=== PATIENT | female | born 1940 | race Caucasian/White ===

== ENCOUNTER → 2016-12-11 | Outpatient (CLI) | payer OTHER | LOC: FIMAGING 10:01 | PROVIDERS: ATTEND Neurological Surgery | DX: Z09 Encounter for follow-up examination after completed treatment for conditions other than malignant neoplasm (principal); Z98.1 Arthrodesis status ==

== ENCOUNTER 2017-03-18 05:28 | Inpatient (IN) | payer OTHER ==
[2017-03-18] MEDS ORDERED: DEXAMETHASONE 10 MG/ML VIAL IVP ONE (06:00)
[2017-03-18] MEDS ORDERED: CHLORHEXIDINE GLUC HIBICLENS 118 ML BTL TP ONE (06:00)
[2017-03-18] MEDS ORDERED: LIDOCAINE 1% 5 ML SDV ID PRN (06:07)
[2017-03-18] MEDS ORDERED: LR 1,000 ML IV ONE (06:07)
[2017-03-18] MEDS ORDERED: THROMBIN (BOVINE) 5,000 UNIT VIAL TP ONE (06:34)
[2017-03-18] MEDS ORDERED: BACITRACIN 50,000 UNITS/10 ML SYR IRR ONE ×2 (06:34→08:58)
[2017-03-18] MEDS ORDERED: CITRATE DEXTROSE SOLN 500 ML BAG ONE ×3 (06:34→14:06)
[2017-03-18] MEDS ORDERED: BUPIVACAINE/EPI 0.25% 30 ML SDV ONE (06:34)
[2017-03-18] MEDS ORDERED: BUPIVACAINE 0.25% 30 ML SDV ONE (06:34)
--- NOTE | 2017-03-18 06:39 | PDGENHP ---
History & Physical Outpatient Chief Complaint: Progressive upper thoracic kyphosis, pain History of Present Illness: has a history of a C3/4,4/5 and C6/7 ACDF and posterior C3-7 laminectomy and C3-T3 fusion in 2011. She fell in February of 2014 with some concern of a C1 ring fracture. An MRI and CT showed this to be a chronic fracture. She continues to have ongoing severe paraspinal pain wiht head heaviness without arm pain, weakness or bowel/bladder problems. She has upper thoracic kyphosis seen on her Scoliosis xrays from [facility] on 12/11/16 that shows her being forward in relation to her pelvis. Pertinent Past, Social, Family History: does not smoke. No alchohol use Relevant Physical Exam: progressive upper thoracic kyphosis with paraspinal neck pain. no weakness or tingling Cardiorespiratory Assessment: Lungs WNL. Heart RRR
[2017-03-18] MEDS ORDERED: THROMBIN (BOVINE) 20,000 UNIT VIAL TP ONE ×5 (06:46→13:23)
[2017-03-18] MEDS ORDERED: MIDAZOLAM 2 MG/2 ML VIAL IVP ONE ×2 (06:53→07:07)
--- NOTE | 2017-03-18 06:56 | PDANEPAE ---
ANE Past Medical History - Cardiovascular History Hx Hypertension: No Hx Arrhythmias: No Hx Chest Pain: No Hx Coronary Artery / Peripheral Vascular Disease: No Hx CHF / Valvular Disease: No Hx Palpitations: No - Pulmonary History Hx COPD: No Hx Asthma/Reactive Airway Disease: No Hx Recent Upper Respiratory Infection: No Hx Oxygen in Use at Home: No - Neurologic History Hx Cerebrovascular Accident: No Hx Seizures: No Hx Dementia: No - Endocrine History Hx Diabetes: No Hypothyroid: Yes - Renal History Hx Renal Disorders: No - Liver History Hx Hepatic Disorders: No - Neurological & Psychiatric Hx Hx Neurological and Psychiatric Disorders: Yes - Cancer History Hx Cancer: Yes - Congenital Disorder History Hx Congenital Disorders: Yes - GI History Hx Gastrointestinal Disorders: Yes - Chronic Pain History Chronic Pain: Yes (back and neck) ANE Review of Systems - Exercise capacity Exercise capacity: >=4 METS METS (RN): 4 METS ANE Patient History - Allergies Allergies/Adverse Reactions: aspirin [From Fiorinal] Allergy (Severe, Verified 02/18/17 14:04) WHOLE BODY SWELLED UP butalbital [From Fiorinal] Allergy (Severe, Verified 02/18/17 14:04) WHOLE BODY SWELLED UP erythromycin base [Erythromycin Base] Allergy (Severe, Verified 02/18/17 14:04) THROAT CLOSED UP Penicillins Allergy (Intermediate, Verified 02/18/17 14:04) Hives levofloxacin Allergy (Verified 02/18/17 14:03) Swelling/neck,face,throat - Home Medications Home Medications: Cholecalciferol Vit D3 [Vitamin D3 2000 units (OTC)] 2,000 units PO DAILY [Last Taken 03/08/17] DULoxetine [Cymbalta 30 MG (RX)] 60 mg PO DAILY 09/16/12 [Last Taken 03/17/17] Levothyroxine [Synthroid 50 mcg (RX)] 50 mcg PO DAILY06 09/16/12 [Last Taken 09/21] Ascorbic Acid [Vitamin C 500 mg (*)] 500 mg PO DAILY 02/14/17 [Last Taken ] Gabapentin [Neurontin 300 MG (*)] 600 mg PO HS 02/14/17 [Last Taken 03/17/17] Herbals/Supplements -Info Only 1 ea PO DAILY 02/14/17 [Last Taken 03/08/17] Zolpidem Tartrate [Ambien 5MG (*)] 7.5 mg PO HS 02/14/17 [Last Taken 03/17/17] - NPO status NPO Since - Liquids (Date): 03/17/17 NPO Since - Solids (Date): 03/17/17 - Smoking Hx Smoking Status: Former smoker - Family Anes Hx Family Hx Anesthesia Complications: NONE ANE Labs/Vital Signs - Vital Signs Blood Pressure: 143/77 Heart Rate: 68 Respiratory Rate: 16 Height: 149.86 cm Weight: 48.988 kg ANE Physical Exam - Airway Mallampati Score: Class 3 Mouth exam: dentures - Pulmonary Pulmonary: no respiratory distress - Cardiovascular Cardiovascular: regular rate and rhythym - ASA Status ASA Status: II ANE Anesthesia Plan Anesthesia Plan: general endotracheal anesthesia Lines/Monitors: arterial line
[2017-03-18] MEDS ORDERED: ceFAZolin 2 GM/DEXTROSE 100 ML IV ONE (07:00)
[2017-03-18] MEDS ORDERED: MIDAZOLAM 2 MG/2 ML VIAL ONE (07:08)
[2017-03-18] MEDS ORDERED: fentaNYL 100 MCG/2 ML INJ ONE ×2 (07:09→16:57)
[2017-03-18] MEDS ORDERED: ROCURONIUM 50 MG/5 ML VIAL ONE (07:09)
[2017-03-18] MEDS ORDERED: LIDOCAINE 2% 100 MG/5 ML SYR ONE (07:09)
[2017-03-18] MEDS ORDERED: HYDROmorphONE/DILAUDID 2 MG/ML INJ ONE (07:09)
[2017-03-18] MEDS ORDERED: ONDANSETRON 4 MG/2 ML VIAL ONE (07:09)
[2017-03-18] MEDS ORDERED: DEXAMETHASONE 4 MG/ML VIAL ONE (07:09)
[2017-03-18] MEDS ORDERED: PROPOFOL 200 MG/20 ML VIAL ONE (07:10)
[2017-03-18] MEDS ORDERED: REMIFENTANIL HCL 1 MG VIAL ONE ×2 (07:10→13:14)
[2017-03-18] MEDS ORDERED: PROPOFOL/EMULSION 500 MG/50 ML BOTTLE IV ONE ×2 (07:10→13:14)
[2017-03-18] MEDS ORDERED: SUCCINYLCHOLINE CHLORIDE*ANESTHESIA ONLY*200 MG/10 ML SYR IVP ONE (07:14)
[2017-03-18] MEDS ORDERED: PHENYLEPHRINE HCL 100 MCG/ML SYR ONE ×2 (07:32→12:22)
--- NOTE | 2017-03-18 08:50 | POSTANESTH ---
Post Anesthetic Evaluation Cardiovascular Status: Normal, Stable, Similar to Pre-Op Cond Respiratory Status: Normal, Stable, Similar to Pre-op Cond. Level of Consciousness/Mental Status: Can Participate in Eval, Moderately Sleepy Pain Control: Adequate, Prn Tx Ordered Nausea/Vomiting Control: Adequate, Prn Tx Ordered Complications Possibly Related to Anesthesia: None Noted (doing well)
[2017-03-18] MEDS ORDERED: epHEDrine SULFATE 10 MG/ML SYR ONE (11:05)
[2017-03-18] MEDS ORDERED: ceFAZolin 1 GM VIAL ONE ×2 (11:46)
[2017-03-18] MEDS ORDERED: TRANEXAMIC ACID 1,000 MG in NS 100 ML IV ONE (12:00)
[2017-03-18 12:11] LABS: % IMMATURE GRANULYOCYTES 1.3 % (0.0-1.1); ABSOLUTE IMMATURE GRANULOCYTES 0.09 10^3/uL (0.00-0.10); ADD DIFF? NO; ADD MORPH? NO; ADD SCAN? NO; ATYPICAL LYMPHOCYTE FLAG 0 (0-99); FRAGMENT RBC FLAG 0 (0-99); HEMATOCRIT 28.1 % (38.0-47.0); HEMOGLOBIN 9.2 g/dL (12.6-16.3); LEFT SHIFT FLG 10 (0-99); LIPEMIA HEMOLYSIS FLAG 80 (0-99); MEAN CELL HEMOGLOBIN 28.7 pg (27.9-34.1); MEAN CELL HEMOGLOBIN CONCENTR. 32.7 g/dL (32.4-36.7); MEAN CELL VOLUME 87.5 fL (81.5-99.8); MEAN PLATELET VOLUME 10.2 fL (8.7-11.7); PLATELET CLUMPS FLAG 0 (0-99); PLATELET COUNT 153 10^3/uL (150-400); RED BLOOD CELL COUNT 3.21 10^6/uL (4.18-5.33); RED CELL DISTRIBUTION WIDTH 14.2 % (11.5-15.2)
[2017-03-18 12:26] LABS: INR 1.13 (0.83-1.16); PROTIME(PATIENT) 14.4 SEC (12.0-15.0)
[2017-03-18 12:27] LABS: APTT 31.6 SEC (23.0-38.0)
[2017-03-18] MEDS ORDERED: DEXMEDETOMIDINE HCL 400 MCG in NS 100 ML IV ONE (16:00)
[2017-03-18] MEDS ORDERED: DEXMEDETOMIDINE HCL 400 MCG in NS 100 ML IV SCH ×2 (16:00→17:30)
--- NOTE | 2017-03-18 16:44 | POSTOPPROG ---
Post Op Note Date of Operation: 03/18/17 Surgeon: Umang Solorzano Waste Machine Tender: Arnulfo Anesthesiologist: Joseph Anesthesia: GET(General Endotracheal) Pre-op Diagnosis: progressive upper thoracic kyphosis and neck pain Post-op Diagnosis: same Indication: poor posture, pain Procedure: posterior cervical hardware removal, Upper thoracic hdwr removal, T3 wedge Findings: kyphosis Inf/Abcess present in the surg proc area at time of surgery?: No EBL: 2250 Total fluids administered: 5100 crystalloid, 2 units PRBC, 2 FFP, 4pak platelets , 750 cell saver Complications: none Drains: Damion Monterroso (to bulb suction)
[2017-03-18] MEDS ORDERED: NALOXONE HCL 0.4 MG/ML INJ IVP PRN ×2 (16:47→17:13)
[2017-03-18] MEDS ORDERED: HYDROmorphONE/DILAUDID 1 MG/ML SYR IVP PRN (16:47)
[2017-03-18] MEDS ORDERED: PROMETHAZINE HCL 25 MG/ML INJ IVP PRN (16:47)
[2017-03-18] MEDS ORDERED: fentaNYL 100 MCG/2 ML INJ IVP PRN (16:47)
[2017-03-18] MEDS ORDERED: ALBUTEROL 3 ML DEYVIAL IH PRN (16:47)
[2017-03-18] MEDS ORDERED: ONDANSETRON 4 MG/2 ML VIAL IVP PRN (16:47)
[2017-03-18] MEDS ORDERED: DEXAMETHASONE 4 MG/ML VIAL IVP PRN (16:47)
[2017-03-18] MEDS ORDERED: HYDROCODONE/APAP 5/325 TAB PO PRN (16:47)
[2017-03-18] MEDS ORDERED: OXYCODONE/APAP 5/325 TAB PO PRN (16:47)
[2017-03-18] MEDS ORDERED: ACETAMINOPHEN 500 MG TAB PO PRN (16:47)
[2017-03-18] MEDS ORDERED: MEPERIDINE 25 MG/ML SYR IVP PRN (16:47)
[2017-03-18] MEDS ORDERED: ONDANSETRON DISINTEGRATING 4 MG TAB PO PRN (16:48)
[2017-03-18] MEDS ORDERED: diphenhydrAMINE 25 MG CAP PO PRN (16:48)
[2017-03-18] MEDS ORDERED: MAGNESIUM HYDROXIDE 30 ML UDCUP PO PRN (16:48)
[2017-03-18] MEDS ORDERED: BISACODYL 10 MG SUPP PR PRN (16:48)
[2017-03-18] MEDS ORDERED: LACTULOSE 20 GM/30 ML UDCUP PO PRN (16:48)
--- NOTE | 2017-03-18 16:48 | SOAPPROG ---
SOAP Progress Note Assessment/Plan: Assessment: post op check: doing well s/p C3-T7 instrumentation and T3 wedge with removal of posterior cervical and upper thoracic hardware Plan: transfer to ICU per protocol MARK to suction HOB as tolerated 03/18/17 16:44 Subjective: eyes closed, wakes to tactile stimulation and groans Moving all extremities Objective: Vital Signs Temp Pulse Resp BP Pulse Ox 36.8 C 68 16 143/77 H 03/18/17 06:29 03/18/17 06:55 03/18/17 06:55 03/18/17 06:55 Laboratory Results 03/18/17 12:02 PT 14.4 SEC (12.0-15.0) 03/18/17 12:02 INR 1.13 (0.83-1.16) 03/18/17 12:02 BP 153/79 HR: 76 02: 100% resp rate: 14 Neuro: MORRELL, sens +LT, +FC, + Shoulder shrug, pushes down with both feet pulls legs away to thigh pinch bilaterall sensation intact in chest/abdomen perrla ICD10 Worksheet Patient Problems: Problems Problem Status Onset Anemia due to blood loss, acute Acute Chronic pain Acute Pneumonia Acute S/P lumbar spinal fusion Acute
[2017-03-18 17:26] LABS: % IMMATURE GRANULYOCYTES 0.8 % (0.0-1.1); ABSOLUTE IMMATURE GRANULOCYTES 0.11 10^3/uL (0.00-0.10); ADD DIFF? NO; ADD MORPH? NO; ADD SCAN? NO; ATYPICAL LYMPHOCYTE FLAG 0 (0-99); FRAGMENT RBC FLAG 10 (0-99); HEMATOCRIT 32.4 % (38.0-47.0); HEMOGLOBIN 10.8 g/dL (12.6-16.3); LEFT SHIFT FLG 10 (0-99); LIPEMIA HEMOLYSIS FLAG 80 (0-99); MEAN CELL HEMOGLOBIN 28.6 pg (27.9-34.1); MEAN CELL HEMOGLOBIN CONCENTR. 33.3 g/dL (32.4-36.7); MEAN CELL VOLUME 85.7 fL (81.5-99.8); PLATELET CLUMPS FLAG 10 (0-99); PLATELET COUNT 168 10^3/uL (150-400); RED BLOOD CELL COUNT 3.78 10^6/uL (4.18-5.33)
[2017-03-18 17:45] LABS: ANION GAP 7 mEq/L (8-16); CARBON DIOXIDE 21 mEq/l (22-31); CHLORIDE 105 mEq/L (97-110); POTASSIUM 4.3 mEq/L (3.5-5.2); SODIUM 133 mEq/L (134-144)
[2017-03-18 17:46] LABS: CALCIUM 7.7 mg/dL (8.5-10.4); CREATININE 0.6 mg/dL (0.6-1.0); GLOMERULAR FILTRATION RATE > 60; GLUCOSE 203 mg/dL (70-100)
[2017-03-18] MEDS ORDERED: NS BOLUS 500 ML (Wide open) IV ONE (19:00)
[2017-03-18] MEDS: ceFAZolin 2 GM/DEXTROSE 100 ML IV SCH (20:41)
[2017-03-18] MEDS: FAMOTIDINE 20 MG TAB PO SCH (20:41)
[2017-03-18] MEDS: morphINE PCA 30 MG/30 ML PCA IV PRN (21:50)
[2017-03-18] MEDS: oxyCODONE IR 5 MG TAB PO PRN (21:50)
[2017-03-18] MEDS: morphINE SR 15 MG TAB PO SCH (21:50)
[2017-03-18] MEDS: METHOCARBAMOL 750 MG TAB PO PRN (21:50)
[2017-03-18] MEDS: GABAPENTIN 300 MG CAP PO SCH (22:37)
[2017-03-18] MEDS: SENNOSIDES/DOCUSATE SODIUM TAB PO SCH (22:37)
[2017-03-18] MEDS: ACETAMINOPHEN 500 MG TAB PO SCH (22:38)
[2017-03-18] MEDS: POLYETHYLENE GLYCOL 3350 17 GM PKT PO SCH (22:38)
[2017-03-18 23:30] LABS: HEMATOCRIT 29.2 % (38.0-47.0); HEMOGLOBIN 9.6 g/dL (12.6-16.3)
[2017-03-19] MEDS ORDERED: DIAZEPAM 10 MG/2 ML SYR ONE (00:07)
[2017-03-19] MEDS: DIAZEPAM 10 MG/2 ML SYR IVP PRN ×2 (00:10→17:10)
--- NOTE | 2017-03-19 00:54 | GOP ---
[f rep st] OPERATIVE REPORT ADDENDUM TO PREVIOUSLY DICTATED REPORT Please note that the patient has L&K pedicle screws in the thoracic spine with a 6 mm kelsi below T7, and she has K2M [place] pedicle screws with a 5.5 mm kelsi at T4 through T7, K2M Mini [place] lateral mass screws, and pedicle screws at C3 through T2 with what I believe is a 3 mm kelsi. /[id number] [facility] ORIGINAL REPORT DATE OF OPERATION: 03/18/2017 SURGEON: Umang Solorzano MD NEUROSURGEON: Umang Solorzano MD HEAD SCREEN WORKER: BENITA Anton ANESTHESIA: General endotracheal. 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 POSTOPERATIVE DIAGNOSIS: Severe progressive cervical thoracic kyphosis with intractable pain and dysfunction, failed conservative care. PROCEDURE PERFORMED: 1. T3 pedicle subtraction osteotomy with extensive T2, T3 and T4 laminectomies for decompression of the spinal canal. 2. Removal and replacement of instrumentation from C3 through C7 with extension of posterior segmental (lateral mass screw and pedicle screw) fixation and posterolateral fusion from C3 through T7. 3. Use of intraoperative microscopy, fluoroscopy, and computer volumetric stereotactic navigation with intraoperative neurophysiologic testing. FINDINGS: ESTIMATED BLOOD LOSS: 1000 cc. INDICATIONS: The patient is a 76-year-old woman with intractable pain and dysfunction related to progressive kyphosis of her cervical thoracic spine. She has been treated extensively with nonsurgical management and presents now for reconstruction. She has an extensive past surgical history involving her cervical and thoracic spine, and the prior fusion at C3 through C7 and T7 down to the lumbar spine will be connected and tied together. The patient understands that this is a very high-risk surgery with no guarantee of improvement and she could be worse. DESCRIPTION OF PROCEDURE: After informed consent was obtained, the patient was taken to the operating room and placed in the prone position with the head in the radiolucent Armando head men's tennis coach on the Damion table. The craniocervical thoracic areas were prepped and draped in a sterile fashion and, after fluoroscopic localization of the correct levels, a midline linear incision was created from approximately C3 down to T7. Note, that due to the patient's severe kyphosis it was very difficult to perform the positioning and the exposure and we were working in somewhat of a hole with severe angulation of her spine with the entire exposure. This in combination with the prior surgery and history of multilevel laminectomy, made the exposure extremely time- consuming and difficult, but we were able to carefully expose all the prior instrumentation and the laminectomy defects and everything from C3 down to T7. The prior rods and several screws were removed in the cervical spine, and the rods were cut and screws removed in the thoracic spine in order to be able to place a kelsi-to-kelsi connector. Following this, the O-arm neuronavigational system was brought in and 3-D reconstructed images obtained. Using computer volumetric stereotactic navigation, screws were placed from C3 through T7 individually at each level in the standard fashion with lateral mass and pedicle screws. Some of the screws were left in place from the prior surgery. The O-arm neuronavigational system was utilized to verify good position of the screws. The T6 and T5 screws on the right were somewhat lateral, and these were both removed and a new trajectory placed at T6, but there was no better trajectory at T5, so the screw was replaced in the old position which was not ideal but also was not that bad and I felt that it was in the best interest of the patient to leave it in place. Following this, extensive laminectomy defects were created at T2, T3 and T4 in anticipation of the realignment of her cervical spine. The facet joints were also taken and the nerve roots more completely decompressed and unroofed all the way out laterally. The T3 pedicles were then drilled down using the Shopperception drill system with coarse silvana burs. The posterior element of the vertebral body was then pulled down into the defect using reverse angle curettes. This was all performed in a wedge-shaped fashion, and once the entire spinal cord and thecal sac were completely clear of bone and tissue, the [place] head men's tennis coach was disconnected and the patient's cervical spine was realigned into a less kyphotic position. Multiple x-rays were taken including 3D reconstructed images to try and identify the ideal position for her head and neck, which can be extremely difficult and frequently not possible. We did the best we could and then locked the Armando back in place and contoured the rods to match the screws and secured this from a rostral to caudal approach. The rods from C3 to T7 were connected to the old thoracolumbar rods with kelsi-to-kelsi connectors. All of the areas were copiously irrigated with antibiotic irrigation. Meticulous hemostasis was achieved as best we could. The remaining lamina and facet joints and transverse processes were then extensively decorticated from C3 down to T7 and the local autograft from the osteotomy and other laminectomies along with bone morphogenic protein was placed out laterally from C3 through T7 and in the T3 osteotomy defect. Following re-verification of good position of the screws and rods using biplanar fluoroscopy, a drain was placed and the wound was closed in a layered fashion using interrupted Vicryl sutures followed by Steri-Strips on the skin. Note, that the patient did have a significant skin fold at her cervical thoracic junction area due to the realignment and this was approximated painstakingly to the best of my ability and then bacitracin goop was placed in the crevice where skin was overlap in order to minimize the risk of infection. COMPLICATIONS: None. DISPOSITION: The patient was extubated and transferred to the recovery room in stable condition. /[id number]/MODL MTDD
[2017-03-19] MEDS: ceFAZolin 2 GM/DEXTROSE 100 ML IV SCH (04:55)
[2017-03-19 06:01] LABS: % IMMATURE GRANULYOCYTES 0.5 % (0.0-1.1); ABSOLUTE IMMATURE GRANULOCYTES 0.04 10^3/uL (0.00-0.10); ADD DIFF? NO; ADD MORPH? NO; ADD SCAN? NO; ATYPICAL LYMPHOCYTE FLAG 0 (0-99); FRAGMENT RBC FLAG 80 (0-99); HEMOGLOBIN 8.6 g/dL (12.6-16.3); LEFT SHIFT FLG 0 (0-99); LIPEMIA HEMOLYSIS FLAG 80 (0-99); MEAN CELL HEMOGLOBIN 28.2 pg (27.9-34.1); MEAN CELL HEMOGLOBIN CONCENTR. 33.1 g/dL (32.4-36.7); MEAN CELL VOLUME 85.2 fL (81.5-99.8); MEAN PLATELET VOLUME 9.9 fL (8.7-11.7); PLATELET CLUMPS FLAG 40 (0-99); PLATELET COUNT 114 10^3/uL (150-400); RED BLOOD CELL COUNT 3.05 10^6/uL (4.18-5.33); RED CELL DISTRIBUTION WIDTH 15.7 % (11.5-15.2)
[2017-03-19] MEDS: ACETAMINOPHEN 500 MG TAB PO SCH ×2 (06:02→17:09)
[2017-03-19] MEDS: LEVOTHYROXINE 50 MCG TAB PO SCH (06:03)
[2017-03-19 06:25] LABS: ANION GAP 3 mEq/L (8-16); CALCIUM 7.2 mg/dL (8.5-10.4); CARBON DIOXIDE 23 mEq/l (22-31); CHLORIDE 110 mEq/L (97-110); CREATININE 0.6 mg/dL (0.6-1.0); GLOMERULAR FILTRATION RATE > 60; GLUCOSE 118 mg/dL (70-100); POTASSIUM 4.6 mEq/L (3.5-5.2); SODIUM 136 mEq/L (134-144)
[2017-03-19] MEDS ORDERED: NS 500 ML IV ONE (08:00)
--- NOTE | 2017-03-19 08:19 | SOAPPROG ---
SOAP Progress Note Assessment/Plan: Assessment: POD #1 doing well s/p C3-T7 instrumentation and T3 wedge with removal of posterior cervical and upper thoracic hardware Complains of neck pain as expected. MARK functioning well BP low this AM and was bolused 500ml prior to my arrival. BPs were 90s sytolic prior to that, I added another 500ml bolus. Mentating well. Made 500ml Urine overnight Plan: Per Dr. Barber tranfuse 2 units PRBC now. CPM in ICU DC contreras Advance activity MARK to suction HOB as tolerated Follow H/H Discussed with Dr. Barber 03/19/17 08:38 03/19/17 08:39 Subjective: awake, alert, oriented. Complains of neck pain. denies numbness, tingling or weakness Objective: Vital Signs Temp Pulse Resp BP Pulse Ox 37.1 C 56 L 19 88/41 L 100 03/19/17 04:00 03/19/17 06:00 03/19/17 06:00 03/19/17 06:00 03/19/17 06:00 Laboratory Results 03/19/17 05:43 03/19/17 05:43 03/18/17 03/19/17 03/20/17 05:59 05:59 05:59 Intake Total 8308 Output Total 3575 60 Balance 4733 -60 PT 14.4 SEC (12.0-15.0) 03/18/17 12:02 INR 1.13 (0.83-1.16) 03/18/17 12:02 NEURO: A+0x4 MORRELL to command, equal strength bilat upper/lower ext sens +LT MARK: 325 ml overnight, 60 ml this AM Dressing: Dry ICD10 Worksheet Patient Problems: Problems Problem Status Onset Anemia due to blood loss, acute Acute Chronic pain Acute Pneumonia Acute S/P lumbar spinal fusion Acute
[2017-03-19] MEDS: NS 1,000 ML IV SCH (10:43)
[2017-03-19] MEDS ORDERED: NOREPINEPHRINE BITARTRATE 4 MG in D5W 500 ML IV SCH (11:30)
[2017-03-19] MEDS: morphINE SR 15 MG TAB PO SCH ×2 (12:40→21:11)
[2017-03-19] MEDS: FAMOTIDINE 20 MG TAB PO SCH (12:45)
[2017-03-19] MEDS: DULoxetine 30 MG CAP PO SCH (12:45)
[2017-03-19] MEDS: POLYETHYLENE GLYCOL 3350 17 GM PKT PO SCH ×3 (12:45→17:09)
[2017-03-19] MEDS: CHOLECALCIFEROL VIT D3 1,000 UNITS TAB PO SCH (12:45)
[2017-03-19] MEDS: ASCORBIC ACID 500 MG TAB PO SCH (12:45)
[2017-03-19] MEDS: SENNOSIDES/DOCUSATE SODIUM TAB PO SCH ×2 (12:45→14:43)
[2017-03-19] MEDS: ONDANSETRON 4 MG/2 ML VIAL IVP PRN ×2 (13:34→21:11)
--- NOTE | 2017-03-19 17:15 | GCON ---
[f rep st] CONSULTATION CRITICAL CARE CONSULT DATE OF CONSULTATION: 03/19/2017 HISTORY OF PRESENT ILLNESS: The patient is a 76-year-old female with multiple back surgeries in the past who underwent a T2-T4 laminectomy decompression as well as C3-7 redo. Surgery itself, did hav e some blood loss but was otherwise uncomplicated. She has been having difficulty postoperatively w ith hypotension overnight. In terms of pain, she seems to be well controlled. 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 She denied any chest pain or shortness of breath and no previous cardiac issues or difficulty wit h blood pressure in the past. PAST MEDICAL HISTORY: Includes: 1. Rheumatoid arthritis. 2. Depression. 3. Hypertension. 4. Hypothyroidism. 5. Vertigo. 6. Remote spinal abscess. 7. Breast cancer. 8. Chronic rotator cuff tear. PAST SURGICAL HISTORY: Includes: 1. Left mastectomy. 2. C3-T3 fusion in the past. 3. L1-L5 XLIF. 4. T7 to iliac fusion in the past in addition to the surgery above. ALLERGIES: None. SOCIAL HISTORY: She is a nonsmoker. No alcohol or IV drug use. FAMILY HISTORY: Noncontributory but does include coronary artery disease. MEDICATIONS: Currently include Precedex, diazepam p.r.n., Cymbalta, Lovenox, Pepcid, Neurontin, Syn throid, Robaxin, morphine BOILER HELPER, MS Contin b.i.d., Zofran, senna, sodium chloride. PHYSICAL EXAMINATION: VITAL SIGNS: She was afebrile. Blood pressure was 84/69, heart rate of 65, respiratory rate 12, oxygen saturation 98% on 4 L. GENERAL: She was alert and awake and spoke in f ull sentences without using accessory muscles for breathing. She was oriented x3. HEENT: Pupils w ere equally round and reactive to light, nonicteric and noninjected. Mucous membranes were moist wi thout erythema or exudate. NECK: She did have a neck collar in place and did not have any complain ts related to it. LUNGS: Breath sounds were distant but clear to auscultation bilaterally without wheeze, rubs, or rales. HEART: Regular rate and rhythm without murmurs, rubs, or gallops. ABDOMEN : Soft, nontender, and nondistended with hypoactive bowel sounds. EXTREMITIES: No clubbing, cyano sis, or edema. NEUROLOGIC: Nonfocal, including cranial nerves and deep tendon reflexes. LABORATORY DATA: Includes a white count of 8.6, hematocrit of 26, platelets of 114. Basic metaboli c panel was unremarkable. ASSESSMENT/PLAN: 1. Hypotension after surgery. She may be hypovolemic. She was getting blood transfused at the thomas e of my evaluation, which resulted in improved blood pressure. Of note, a Nicom was indicative of a dequate fluid resuscitation, in that there was no cardiac output improvement with that. A PICC line has been ordered for her, and we may use pressors moving forward depending on how her blood pressur e responds to the blood once it is completed. I see no evidence of adrenal insufficiency, cardiogen ic shock, or sepsis at this time. I agree with the blood and we should recheck it later, but I do n ot believe she is actively bleeding. 2. Anemia. This is postoperative blood loss. She has already gotten a transfusion, as I said, and we will continue to follow. 3. Hypertension. We will hold her medications as before until her blood pressure responds. /[id number]/MODL
[2017-03-19] MEDS: NOREPINEPHRINE/NS 500 ML IV SCH (17:46)
[2017-03-19] MEDS: morphINE PCA 30 MG/30 ML PCA IV PRN (21:55)
[2017-03-20] MEDS: FAMOTIDINE 20 MG TAB PO SCH ×3 (00:03→20:16)
[2017-03-20] MEDS: ACETAMINOPHEN 500 MG TAB PO SCH ×3 (00:04→15:27)
[2017-03-20] MEDS: POLYETHYLENE GLYCOL 3350 17 GM PKT PO SCH ×3 (00:04→15:27)
[2017-03-20] MEDS: GABAPENTIN 300 MG CAP PO SCH ×2 (00:04→20:16)
[2017-03-20] MEDS: SENNOSIDES/DOCUSATE SODIUM TAB PO SCH ×2 (00:04→09:30)
[2017-03-20] MEDS: DIAZEPAM 10 MG/2 ML SYR IVP PRN ×2 (01:04→13:11)
[2017-03-20] MEDS: NOREPINEPHRINE/NS 500 ML IV SCH (05:38)
[2017-03-20] MEDS: LEVOTHYROXINE 50 MCG TAB PO SCH (05:51)
--- NOTE | 2017-03-20 07:27 | NEUSURGPN ---
Date of Surgery: 03/18/17 Post Op Day: 2 Assessment/Plan: Assessment/Plan: Assessment: POD #2 doing well s/p C3-T7 instrumentation and T3 wedge with removal of posterior cervical and upper thoracic hardware Complains of neck pain as expected and other pain throughout body r/t RA. MARK functioning well, 150cc out yesterday BP continues to be labile, not responsive to fluid bolus yesterday, patient on levo ranging 2mcg-10mcg Will get a CBC and CMP this am Encourage PT/OT to get patient moving if BP tolerates activity Mentating well. Guerrero has been dc'd Subjective: awake, alert, oriented. Complains of neck pain. denies numbness, tingling or weakness Objective: NAD A&Ox3 MEAx4 Incision x2 CDI Urinary Catheter in Place: No Catheter Insertion Date: 03/18/17 - Physician Discussed Patient with : Jeanine Neurosurgery Physical Exam - Vitals, I&O, Labs I and O 03/19/17 03/20/17 03/21/17 05:59 05:59 05:59 Intake Total 8308 3393 Output Total 3575 3060 Balance 4733 333 Weight 48.988 kg Intake: Oral (ml) 50 IV Intake (ml) 5350 800 IV Infused (ml) 1588 2593 Dexmedetomidine HCl 400 88 mcg In Ns 100 ml @ Per Protocol IV ONCE ONE Rx#: [id number] Norepinephrine Bitartrate 464 4 mg In D5w 500 ml @ Titrate IV CONT [facility] Rx#: [id number] Ns 1,000 ml @ 100 mls/hr 1500 2129 IV CONT [facility] Rx#: [id number] Fresh Frozen Plasma (ml) 600 Packed Red Blood Cells ( 600 ml) Platelets (ml) 120 Output: Urine (ml) 1000 2500 Catheter 100 2500 Estimated Blood Loss (ml) 2250 Emesis (ml) 200 MARK Drain Output (ml) 325 360 Right Back Damion Omnterroso 325 360 Other: Intake Quantity Yes Sufficient Number of Emesis 1 Occurrences Vital Signs Temp Pulse Resp BP Pulse Ox 37.2 C 80 18 96/65 L 99 03/20/17 04:00 03/20/17 06:00 03/20/17 06:00 03/20/17 06:00 03/20/17 06:00 Laboratory Results 03/19/17 05:43 03/19/17 05:43 ICD10 Worksheet Patient Problems: Problems Problem Status Onset Anemia due to blood loss, acute Acute Chronic pain Acute Pneumonia Acute S/P lumbar spinal fusion Acute
[2017-03-20 08:27] LABS: % IMMATURE GRANULYOCYTES 0.4 % (0.0-1.1); ABSOLUTE IMMATURE GRANULOCYTES 0.04 10^3/uL (0.00-0.10); ADD DIFF? NO; ADD MORPH? NO; ADD SCAN? NO; ATYPICAL LYMPHOCYTE FLAG 0 (0-99); FRAGMENT RBC FLAG 0 (0-99); HEMATOCRIT 37.9 % (38.0-47.0); HEMOGLOBIN 12.4 g/dL (12.6-16.3); LEFT SHIFT FLG 20 (0-99); LIPEMIA HEMOLYSIS FLAG 80 (0-99); MEAN CELL HEMOGLOBIN 27.8 pg (27.9-34.1); MEAN CELL HEMOGLOBIN CONCENTR. 32.7 g/dL (32.4-36.7); MEAN PLATELET VOLUME 10.2 fL (8.7-11.7); PLATELET CLUMPS FLAG 0 (0-99); PLATELET COUNT 106 10^3/uL (150-400); RED BLOOD CELL COUNT 4.46 10^6/uL (4.18-5.33); RED CELL DISTRIBUTION WIDTH 15.7 % (11.5-15.2)
[2017-03-20 08:56] LABS: ALANINE AMINOTRANSFERASE 13 IU/L (9-52); ALBUMIN 2.4 g/dL (3.5-5.0); ALKALINE PHOSPHATASE 93 IU/L (38-126); ANION GAP 7 mEq/L (8-16); ASPARTATE AMINOTRANSFERASE 39 IU/L (14-46); BILIRUBIN,TOTAL 0.8 mg/dL (0.1-1.4); CALCIUM 7.6 mg/dL (8.5-10.4); CARBON DIOXIDE 20 mEq/l (22-31); CHLORIDE 107 mEq/L (97-110); CREATININE 0.5 mg/dL (0.6-1.0); GLOMERULAR FILTRATION RATE > 60; GLUCOSE 118 mg/dL (70-100); POTASSIUM 3.9 mEq/L (3.5-5.2); SODIUM 134 mEq/L (134-144); TOTAL PROTEIN 4.5 g/dL (6.3-8.2)
[2017-03-20] MEDS: morphINE SR 15 MG TAB PO SCH ×3 (09:30→20:16)
[2017-03-20] MEDS: CHOLECALCIFEROL VIT D3 1,000 UNITS TAB PO SCH (09:30)
[2017-03-20] MEDS: DULoxetine 30 MG CAP PO SCH ×2 (09:30→15:26)
[2017-03-20] MEDS: ASCORBIC ACID 500 MG TAB PO SCH (09:30)
[2017-03-20] MEDS: ENOXAPARIN 40 MG/0.4 ML SYR SC SCH (10:10)
[2017-03-20] MEDS ORDERED: ALBUMIN 25% 100 ML IV ONE (11:09)
--- NOTE | 2017-03-20 11:11 | PDINTPN ---
Transportation Maintenance Worker Progress Note Assessment/Plan: Assessment/plan: 76 F s/p T2-4 laminectomy and decompression and cervical spine redo complicated by postoperative hypotension. She was initially responsive to volume (eg RBC) but eventually required low dose levophed. No evidence of cardiac failure, septic shock, adrenal insufficiency. NICOM negative, but volume seems most likely. * Hypotension- as above. Titrating off levophed now. H/H 12.4/37.9 so not likely more RBCs. Could consider albumin. * s/p back surgery- appears stable. OOB and working with PT/OT Objective: Vital Signs Temp Pulse Resp BP Pulse Ox 36.7 C 74 18 95/62 L 96 03/20/17 08:00 03/20/17 10:29 03/20/17 10:29 03/20/17 10:29 03/20/17 10:29 Laboratory Results 03/20/17 08:15 03/20/17 08:15 03/19/17 03/20/17 03/21/17 05:59 05:59 05:59 Intake Total 8308 3393 Output Total 3575 3060 Balance 4733 333 PT 14.4 SEC (12.0-15.0) 03/18/17 12:02 INR 1.13 (0.83-1.16) 03/18/17 12:02 Physical Exam - Physical Exam General Appearance: alert, no apparent distress EENT: PERRL/EOMI Neck: other (collar) Respiratory: lungs clear, normal breath sounds, No respiratory distress Cardiac/Chest: normal peripheral pulses, regular rate, rhythm, No edema Abdomen: soft, No distended Skin: normal color, warm/dry Lymphatic: no adenopathy Extremities: No pedal edema Neuro/Psych: normal mood/affect, oriented x 3 ICD10 Worksheet Patient Problems: Problems Problem Status Onset Anemia due to blood loss, acute Acute Chronic pain Acute Pneumonia Acute S/P lumbar spinal fusion Acute
[2017-03-20] MEDS: NS 1,000 ML IV SCH ×2 (13:00→19:22)
[2017-03-20] MEDS: METHOCARBAMOL 750 MG TAB PO PRN (15:24)
[2017-03-21] MEDS: ACETAMINOPHEN 500 MG TAB PO SCH ×5 (00:01→20:59)
[2017-03-21] MEDS: POLYETHYLENE GLYCOL 3350 17 GM PKT PO SCH ×4 (00:02→20:58)
[2017-03-21] MEDS: SENNOSIDES/DOCUSATE SODIUM TAB PO SCH ×3 (00:02→20:57)
[2017-03-21] MEDS: LEVOTHYROXINE 50 MCG TAB PO SCH (06:28)
--- NOTE | 2017-03-21 07:29 | SOAPPROG ---
SOAP Progress Note Assessment/Plan: Assessment: 76 yo F POD #3 C3-T7 fusion with T3 wedge osteotomy Plan: stable MARK x 1 PT/OT transfer to floor patient is likely to need inpatient rehab keep MARK for likely 5 days please call with neuro changes patient seen by DR Barber 03/21/17 07:26 Subjective: + neck pain, no arm pain, no paresthesias Objective: Vital Signs Temp Pulse Resp BP Pulse Ox 36.6 C 80 13 118/44 L 95 03/21/17 04:00 03/21/17 06:00 03/21/17 06:00 03/21/17 06:00 03/21/17 06:00 Laboratory Results 03/20/17 08:15 03/20/17 08:15 03/20/17 03/21/17 03/22/17 05:59 05:59 05:59 Intake Total 3393 2632 Output Total 3060 265 Balance 333 2367 PT 14.4 SEC (12.0-15.0) 03/18/17 12:02 INR 1.13 (0.83-1.16) 03/18/17 12:02 awake, alert PERRL, no facial droop 5/5 + light touch C/D/I ICD10 Worksheet Patient Problems: Problems Problem Status Onset Anemia due to blood loss, acute Acute Chronic pain Acute Pneumonia Acute S/P lumbar spinal fusion Acute
[2017-03-21] MEDS: morphINE SR 15 MG TAB PO SCH (08:02)
[2017-03-21] MEDS: DULoxetine 30 MG CAP PO SCH (08:02)
[2017-03-21] MEDS: ENOXAPARIN 40 MG/0.4 ML SYR SC SCH (09:50)
[2017-03-21] MEDS: ASCORBIC ACID 500 MG TAB PO SCH (12:04)
[2017-03-21] MEDS: FAMOTIDINE 20 MG TAB PO SCH ×2 (12:05→20:57)
[2017-03-21] MEDS: CHOLECALCIFEROL VIT D3 1,000 UNITS TAB PO SCH (12:05)
--- NOTE | 2017-03-21 13:31 | PDINTPN ---
Catering Sous Chef Progress Note Assessment/Plan: Assessment/plan: 76 F s/p T2-4 laminectomy and decompression and cervical spine redo complicated by postoperative hypotension. She was initially responsive to volume (eg RBC) but eventually required low dose levophed. No evidence of cardiac failure, septic shock, adrenal insufficiency. NICOM negative, but volume seems most likely. * Hypotension- likely combination of volume and sedation from narcotics. Off pressors since yesterday. 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 Transition to oral meds when she is more awake. * s/p back surgery- appears stable. OOB and working with PT/OT * * ok for floor Objective: Vital Signs Temp Pulse Resp BP Pulse Ox 36.7 C 73 12 127/47 H 96 03/21/17 12:00 03/21/17 13:00 03/21/17 13:00 03/21/17 13:00 03/21/17 13:00 Laboratory Results 03/20/17 08:15 03/20/17 08:15 03/20/17 03/21/17 03/22/17 05:59 05:59 05:59 Intake Total 3393 2632 Output Total 3060 265 30 Balance 333 2367 -30 PT 14.4 SEC (12.0-15.0) 03/18/17 12:02 INR 1.13 (0.83-1.16) 03/18/17 12:02 Physical Exam - Physical Exam General Appearance: no apparent distress, other (somnolent) EENT: PERRL/EOMI Neck: supple Respiratory: lungs clear, normal breath sounds, No respiratory distress Cardiac/Chest: regular rate, rhythm, No edema Abdomen: non-tender, soft, No distended Skin: normal color, warm/dry Lymphatic: no adenopathy Extremities: No pedal edema Neuro/Psych: other (somnolent) ICD10 Worksheet Patient Problems: Problems Problem Status Onset Anemia due to blood loss, acute Acute Chronic pain Acute Pneumonia Acute S/P lumbar spinal fusion Acute
[2017-03-21] MEDS: GABAPENTIN 300 MG CAP PO SCH (20:57)
[2017-03-22] MEDS: oxyCODONE IR 5 MG TAB PO PRN (03:24)
[2017-03-22] MEDS: LEVOTHYROXINE 50 MCG TAB PO SCH (06:14)
[2017-03-22] MEDS: ACETAMINOPHEN 500 MG TAB PO SCH ×3 (06:17→21:06)
--- NOTE | 2017-03-22 08:24 | SOAPPROG ---
SOAP Progress Note Assessment/Plan: Assessment: 76 yo F POD #4 C3-T7 fusion with T3 wedge osteotomy Plan: - doing well now - had acute blood loss anemia with some hyovolemic shock now resolved BP 130s, H /H (12.4/37.9) - tx to floor - PT/OT, likely will need acute rehab - MARK with 265, will leave another day - lovenox for DVT ppx - will get cervical xrays to document hardware position - no need for cervical collar 03/22/17 08:18 03/22/17 08:25 03/22/17 08:28 Subjective: currently no complaints Objective: Vital Signs Temp Pulse Resp BP Pulse Ox 36.9 C 77 16 133/57 H 99 03/22/17 08:00 03/22/17 08:00 03/22/17 08:00 03/22/17 08:00 03/22/17 08:00 Laboratory Results 03/20/17 08:15 03/20/17 08:15 03/21/17 03/22/17 03/23/17 05:59 05:59 05:59 Intake Total 2632 2126 Output Total 265 80 Balance 2367 2046 PT 14.4 SEC (12.0-15.0) 03/18/17 12:02 INR 1.13 (0.83-1.16) 03/18/17 12:02 AAOx3, full strength, no drift, sensation intact, dressing c/d/i - Pending Discharge Pending Discharge Within 24 Hours: No Pending Discharge Within 48 Hours: No ICD10 Worksheet Patient Problems: Problems Problem Status Onset Anemia due to blood loss, acute Acute Chronic pain Acute Pneumonia Acute S/P lumbar spinal fusion Acute
[2017-03-22] MEDS: ENOXAPARIN 40 MG/0.4 ML SYR SC SCH (10:34)
[2017-03-22] MEDS: SENNOSIDES/DOCUSATE SODIUM TAB PO SCH ×2 (10:35→21:08)
[2017-03-22] MEDS: FAMOTIDINE 20 MG TAB PO SCH ×2 (10:35→21:07)
[2017-03-22] MEDS: DULoxetine 30 MG CAP PO SCH (10:35)
[2017-03-22] MEDS: CHOLECALCIFEROL VIT D3 1,000 UNITS TAB PO SCH (10:36)
[2017-03-22] MEDS: ASCORBIC ACID 500 MG TAB PO SCH (10:36)
[2017-03-22] MEDS: POLYETHYLENE GLYCOL 3350 17 GM PKT PO SCH ×3 (11:25→21:08)
[2017-03-22] MEDS: DIAZEPAM 10 MG/2 ML SYR IVP PRN ×2 (12:49→21:08)
[2017-03-22] MEDS: GABAPENTIN 300 MG CAP PO SCH (21:08)
[2017-03-23] MEDS: LEVOTHYROXINE 50 MCG TAB PO SCH (05:53)
[2017-03-23] MEDS: ACETAMINOPHEN 500 MG TAB PO SCH ×3 (05:53→21:27)
[2017-03-23] MEDS: NS 1,000 ML IV SCH ×2 (06:32→16:46)
--- NOTE | 2017-03-23 10:08 | SOAPPROG ---
SOAP Progress Note Assessment/Plan: Assessment: 76 yo F POD #5 C3-T7 fusion with T3 wedge osteotomy Plan: - doing well now - hypovolemic shock now resolved - PT/OT, likely will need acute rehab, discharge planning - xrays show intact hardware with good alignment - MARK with 40, will remove - lovenox for DVT ppx - no need for cervical collar 03/22/17 08:18 03/22/17 08:25 03/22/17 08:28 03/23/17 10:05 Subjective: doing well, does not have much pain Objective: Vital Signs Temp Pulse Resp BP Pulse Ox 37.1 C 66 18 125/63 H 94 03/23/17 08:00 03/23/17 08:00 03/23/17 08:00 03/23/17 08:00 03/23/17 08:00 Laboratory Results 03/20/17 08:15 03/20/17 08:15 03/22/17 03/23/17 03/24/17 05:59 05:59 05:59 Intake Total 2126 901 Output Total 80 540 50 Balance 2046 361 -50 PT 14.4 SEC (12.0-15.0) 03/18/17 12:02 INR 1.13 (0.83-1.16) 03/18/17 12:02 AAOx3, full strength/sensation, no drift, dressing c/d/i - Pending Discharge Pending Discharge Within 24 Hours: No Pending Discharge Within 48 Hours: Yes Pending Discharge Date: 03/25/17 Pending Discharge Time: 11:00 ICD10 Worksheet Patient Problems: Problems Problem Status Onset Anemia due to blood loss, acute Acute Chronic pain Acute Pneumonia Acute S/P lumbar spinal fusion Acute
[2017-03-23] MEDS: ENOXAPARIN 40 MG/0.4 ML SYR SC SCH (10:34)
[2017-03-23] MEDS: DULoxetine 30 MG CAP PO SCH (10:36)
[2017-03-23] MEDS: FAMOTIDINE 20 MG TAB PO SCH ×2 (10:50→19:57)
[2017-03-23] MEDS: CHOLECALCIFEROL VIT D3 1,000 UNITS TAB PO SCH (10:51)
[2017-03-23] MEDS: ASCORBIC ACID 500 MG TAB PO SCH (10:51)
[2017-03-23] MEDS: POLYETHYLENE GLYCOL 3350 17 GM PKT PO SCH ×3 (12:29→21:27)
[2017-03-23] MEDS: SENNOSIDES/DOCUSATE SODIUM TAB PO SCH ×2 (12:29→20:07)
[2017-03-23] MEDS: oxyCODONE IR 5 MG TAB PO PRN ×2 (15:02→19:58)
[2017-03-23] MEDS: GABAPENTIN 300 MG CAP PO SCH (19:57)
[2017-03-24] MEDS: oxyCODONE IR 5 MG TAB PO PRN (01:56)
[2017-03-24] MEDS: NS 1,000 ML IV SCH ×3 (02:22→23:29)
[2017-03-24] MEDS: ACETAMINOPHEN 500 MG TAB PO SCH ×3 (05:19→19:44)
--- NOTE | 2017-03-24 06:48 | SOAPPROG ---
SOAP Progress Note Assessment/Plan: Assessment: POD #6 doing ok s/p C3-T7 instrumentation and T3 wedge with removal of posterior cervical and upper thoracic hardware Plan: CPM with PT/OT/ST no collar needed at this time Subjective: awake, uncomfortable due to incisional pain. 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 Dr. Barbre aware Neuro: PORSCEH, Sens +LT follows command incision: CDI no MARK ICD10 Worksheet Patient Problems: Problems Problem Status Onset Anemia due to blood loss, acute Acute Chronic pain Acute Pneumonia Acute S/P lumbar spinal fusion Acute
[2017-03-24] MEDS: ENOXAPARIN 40 MG/0.4 ML SYR SC SCH (09:39)
[2017-03-24] MEDS: CHOLECALCIFEROL VIT D3 1,000 UNITS TAB PO SCH (10:16)
[2017-03-24] MEDS: DULoxetine 30 MG CAP PO SCH (10:16)
[2017-03-24] MEDS: ASCORBIC ACID 500 MG TAB PO SCH (10:16)
[2017-03-24] MEDS: SENNOSIDES/DOCUSATE SODIUM TAB PO SCH ×2 (10:17→19:45)
[2017-03-24] MEDS: POLYETHYLENE GLYCOL 3350 17 GM PKT PO SCH ×3 (10:17→19:45)
[2017-03-24] MEDS: FAMOTIDINE 20 MG TAB PO SCH (10:17)
[2017-03-24] MEDS: LEVOTHYROXINE 50 MCG TAB PO SCH (10:18)
[2017-03-24] MEDS: GABAPENTIN 300 MG CAP PO SCH (19:45)
[2017-03-24] MEDS: FAMOTIDINE 20 MG/NACL 50 ML IV SCH (20:53)
[2017-03-25] MEDS: LEVOTHYROXINE 50 MCG TAB PO SCH (05:06)
[2017-03-25] MEDS: ACETAMINOPHEN 500 MG TAB PO SCH ×3 (05:06→22:50)
[2017-03-25] MEDS ORDERED: D5W 1/2 NS 1,000 ML IV SCH (07:00)
[2017-03-25] MEDS: FAMOTIDINE 20 MG/NACL 50 ML IV SCH ×2 (07:47→22:22)
[2017-03-25] MEDS: CHOLECALCIFEROL VIT D3 1,000 UNITS TAB PO SCH (08:01)
[2017-03-25] MEDS: DULoxetine 30 MG CAP PO SCH (08:01)
[2017-03-25] MEDS: ASCORBIC ACID 500 MG TAB PO SCH (08:01)
[2017-03-25] MEDS: POLYETHYLENE GLYCOL 3350 17 GM PKT PO SCH ×3 (08:02→22:51)
[2017-03-25] MEDS: SENNOSIDES/DOCUSATE SODIUM TAB PO SCH ×2 (08:02→22:50)
[2017-03-25] MEDS: ENOXAPARIN 40 MG/0.4 ML SYR SC SCH (08:24)
--- NOTE | 2017-03-25 09:02 | SOAPPROG ---
SOAP Progress Note Assessment/Plan: Assessment: POD #7 severe dysphagia s/p C3-T7 instrumentation and T3 wedge with removal of posterior cervical and upper thoracic hardware generalized weakness 2/2 poor PO intake, no focal weakness Plan: CPM with PT/OT/ST no collar needed at this time Pt agrees to proceed with PEG Discussed with Dr. Barber 03/25/17 08:59 Subjective: awake, pain well controlled unable to take PO. Objective: Vital Signs Temp Pulse Resp BP Pulse Ox 36.8 C 61 18 129/57 H 98 03/25/17 08:12 03/25/17 08:12 03/25/17 08:12 03/25/17 08:12 03/25/17 08:12 Laboratory Results 03/20/17 08:15 03/20/17 08:15 03/24/17 03/25/17 03/26/17 05:59 05:59 05:59 Intake Total 1200 2372 Output Total 52 Balance 1148 2372 PT 14.4 SEC (12.0-15.0) 03/18/17 12:02 INR 1.13 (0.83-1.16) 03/18/17 12:02 Incisoin: CDI Neuro: sharif, sens +LT ICD10 Worksheet Patient Problems: Problems Problem Status Onset Anemia due to blood loss, acute Acute Chronic pain Acute Pneumonia Acute S/P lumbar spinal fusion Acute
[2017-03-25] MEDS ORDERED: VANCOMYCIN 750 MG in D5W 150 ML IV ONE (13:00)
--- NOTE | 2017-03-25 18:37 | GCON ---
[f rep st] CONSULTATION REFERRING PHYSICIAN: Umang Solorzano MD CHIEF COMPLAINT: Dysphagia. HISTORY OF PRESENT ILLNESS: This 76-year-old woman was referred to me in consultation from Dr. Litzy mueller for symptoms of dysphagia post cervical neck surgery. The patient has had multiple back s urgeries in the past, and has had previous T2-T4 laminectomy and decompression, as well as C3-C7 red o. She has had some difficulty postop. Has had difficulty swallowing. She did have a swallow eval uation, which showed aspiration. She has had difficulty with swallowing in the past, and has had a PEG tube placed about 3-4 years ago for similar problems. I was asked to see patient for further ev aluation. PAST MEDICAL HISTORY: Remarkable for rheumatoid arthritis, depression, hypertension, hypothyroidism , vertigo, remote spinal abscess, breast cancer, chronic rotator cuff tear, history of cleft palate. PAST SURGICAL HISTORY: Remarkable for left mastectomy, C3-T3 fusion in the past, L1-L5 fusion or T7 to iliac fusion in the past. ALLERGIES: Aspirin, butalbital, erythromycin, penicillin, and levothyroxine. SOCIAL HISTORY: Nonsmoker, nondrinker. FAMILY HISTORY: Negative, as it pertains to chief complaint. CURRENT MEDICATIONS: Include Benadryl, Cymbalta, enoxaparin, famotidine, Neurontin, lactulose levot hyroxine, magnesium hydroxide, Robaxin, morphine, Zofran, oxycodone IR, MiraLAX, Senokot S. REVIEW OF SYSTEMS: Negative 10 systems, other than mentioned in HPI. PHYSICAL EXAM: VITAL SIGNS: 129/57, heart rate 61, 98% saturation on room air, respiratory rate 18 , 36.8. GENERAL: Chronically ill-appearing woman lying in bed in no acute distress. HEENT: Normo cephalic, atraumatic. Mucous membranes dry. Cleft palate. NECK: No flexibility of the neck. No thyromegaly. No cervical adenopathy. LUNGS: Clear. CARDIAC: Normal S1, S2 without murmur. ABDO MEN: Benign, soft. She has small punctate scar in the upper abdomen consistent with patient's prio r PEG placement. She has lower abdominal scars in the hypogastrium consistent with previous history of ectopic , per patient's report. EXTREMITIES: Without clubbing, cyanosis, edema. NEUR OLOGIC: Grossly nonfocal. SKIN: Warm and dry, intact. PSYCHIATRIC: Normal affect. LABORATORY DATA: Serum white count of 10.76, hemoglobin 12.4, hematocrit of 37.9. PT of 14.4, with INR of 1.13, PTT of 31.6. Serum chemistries: Serum sodium 134, potassium 3.9, chloride of 107, BU N of 9, creatinine of 0.5. Liver function tests normal. IMPRESSION: A 76-year-old woman with history of rheumatoid arthritis, osteoarthritis, with cervical neck fusion and redo, and fusion of her thoracic and lumbar spine. The patient with difficulty swa llowing postoperatively, with aspiration risk on Speech Pathology evaluation. RECOMMENDATIONS: Discussed with the patient. We will proceed with temporary PEG tube placement. T his will be done tomorrow, so n.p.o. after midnight. We will premedicate with vancomycin 1 g prior to procedure for antibiotic prophylaxis. We will follow with you. Thank you for you allowing us to participate in the care of this patient. /[id number]/MODL
[2017-03-25] MEDS ORDERED: ERTAPENEM 1 GM in NS 100 ML IV SCH (21:00)
[2017-03-25 22:03] LABS: % IMMATURE GRANULYOCYTES 1.9 % (0.0-1.1); ABSOLUTE IMMATURE GRANULOCYTES 0.19 10^3/uL (0.00-0.10); ADD DIFF? NO; ADD MORPH? NO; ADD SCAN? NO; ATYPICAL LYMPHOCYTE FLAG 10 (0-99); FRAGMENT RBC FLAG 0 (0-99); HEMATOCRIT 35.3 % (38.0-47.0); HEMOGLOBIN 11.9 g/dL (12.6-16.3); LEFT SHIFT FLG 20 (0-99); LIPEMIA HEMOLYSIS FLAG 80 (0-99); MEAN CELL HEMOGLOBIN 28.6 pg (27.9-34.1); MEAN CELL HEMOGLOBIN CONCENTR. 33.7 g/dL (32.4-36.7); MEAN CELL VOLUME 84.9 fL (81.5-99.8); MEAN PLATELET VOLUME 9.1 fL (8.7-11.7); PLATELET CLUMPS FLAG 0 (0-99); PLATELET COUNT 210 10^3/uL (150-400); RED BLOOD CELL COUNT 4.16 10^6/uL (4.18-5.33); RED CELL DISTRIBUTION WIDTH 14.9 % (11.5-15.2)
[2017-03-25 22:35] LABS: PROCALCITONIN 0.18 ng/mL (0.02-0.10)
--- NOTE | 2017-03-25 22:46 | CPEKG ---
Heart Rate: 74 RR Interval: 811 P-R Interval: 164 QRSD Interval: 82 QT Interval: 456 QTC Interval: 506 P Elgin: 6 QRS Elgin: -13 T Wave Elgin: 202 EKG Severity - ABNORMAL ECG - EKG Impression: SINUS RHYTHM EKG Impression: PROBABLE INFERIOR INFARCT, AGE INDETERMINATE EKG Impression: BORDERLINE R WAVE PROGRESSION, ANTERIOR LEADS EKG Impression: NONSPECIFIC T ABNORMALITIES, ANT-LAT LEADS EKG Impression: BORDERLINE PROLONGED QT INTERVAL Electronically Signed By: Lam Lyman 26-Mar-2017 12:00:24
[2017-03-25] MEDS: GABAPENTIN 300 MG CAP PO SCH (22:50)
[2017-03-25 22:55] LABS: ALANINE AMINOTRANSFERASE 27 IU/L (9-52); ALBUMIN 2.6 g/dL (3.5-5.0); ALKALINE PHOSPHATASE 100 IU/L (38-126); ANION GAP 7 mEq/L (8-16); ASPARTATE AMINOTRANSFERASE 24 IU/L (14-46); BILIRUBIN,TOTAL 0.9 mg/dL (0.1-1.4); CALCIUM 8.4 mg/dL (8.5-10.4); CARBON DIOXIDE 34 mEq/l (22-31); CHLORIDE 91 mEq/L (97-110); CREATININE 0.6 mg/dL (0.6-1.0); GLOMERULAR FILTRATION RATE > 60; GLUCOSE 139 mg/dL (70-100); SODIUM 132 mEq/L (134-144); TOTAL PROTEIN 5.2 g/dL (6.3-8.2)
[2017-03-25 22:57] LABS: POTASSIUM 2.1 mEq/L (3.5-5.2)
[2017-03-25] MEDS ORDERED: POTASSIUM CL 20 MEQ TAB PO ONE (23:01)
[2017-03-25] MEDS ORDERED: PROTOCOL POTASSIUM 1 DOSE MISC PRN (23:03)
[2017-03-25 23:07] LABS: TROPONIN I 0.019 ng/mL (0-0.034)
[2017-03-25] MEDS: ERTAPENEM 1 GM in NS 100 ML IV SCH (23:09)
[2017-03-25] MEDS: POTASSIUM Cl (KCl) 100 ML IV SCH (23:54)
[2017-03-26 00:01] LABS: MAGNESIUM 1.9 mg/dL (1.6-2.3)
[2017-03-26] MEDS: POTASSIUM Cl (KCl) 100 ML IV SCH ×3 (01:19→14:43)
[2017-03-26] MEDS: ALTEPLASE 2 MG VIAL IVP PRN ×2 (04:53→06:27)
[2017-03-26 05:05] LABS: ANION GAP 6 mEq/L (8-16); CALCIUM 8.2 mg/dL (8.5-10.4); CARBON DIOXIDE 37 mEq/l (22-31); CHLORIDE 92 mEq/L (97-110); CREATININE 0.4 mg/dL (0.6-1.0); GLOMERULAR FILTRATION RATE > 60; GLUCOSE 131 mg/dL (70-100); SODIUM 135 mEq/L (134-144)
[2017-03-26 05:12] LABS: POTASSIUM 2.5 mEq/L (3.5-5.2)
[2017-03-26 05:17] LABS: TROPONIN I 0.153 ng/mL (0-0.034)
[2017-03-26] MEDS: LEVOTHYROXINE 50 MCG TAB PO SCH (05:25)
[2017-03-26] MEDS: ACETAMINOPHEN 500 MG TAB PO SCH ×3 (05:25→20:34)
[2017-03-26] MEDS: POTASSIUM Cl (KCl) 50 ML IV SCH ×2 (06:30→08:58)
[2017-03-26] MEDS ORDERED: VANCOMYCIN 750 MG in D5W 150 ML IV ONE (07:00)
--- NOTE | 2017-03-26 07:59 | PDHPUP ---
History & Physical Update H&P update statement: This history and physical update is based on an assessment of the patient which was completed after admission or registration (within 24 hours), but prior to the surgery/procedure. H&P update: no change in patient's condition since H&P completed
[2017-03-26] MEDS ORDERED: NS W/ 20 KCl/L 1,000 ML IV SCH (08:30)
--- NOTE | 2017-03-26 08:42 | PDANEPAE ---
ANE History of Present Illness 76 yo F here for PEG tube ANE Past Medical History - Cardiovascular History Hx Hypertension: No Hx Arrhythmias: No Hx Chest Pain: No Hx Coronary Artery / Peripheral Vascular Disease: No Hx CHF / Valvular Disease: No Hx Palpitations: No - Pulmonary History Hx COPD: No Hx Asthma/Reactive Airway Disease: No Hx Recent Upper Respiratory Infection: No Hx Oxygen in Use at Home: No - Neurologic History Hx Cerebrovascular Accident: No Hx Seizures: No Hx Dementia: No - Endocrine History Hx Diabetes: No - Renal History Hx Renal Disorders: No - Liver History Hx Hepatic Disorders: No - Neurological & Psychiatric Hx Hx Neurological and Psychiatric Disorders: Yes - Cancer History Hx Cancer: Yes - Congenital Disorder History Hx Congenital Disorders: Yes - GI History Hx Gastrointestinal Disorders: Yes - Chronic Pain History Chronic Pain: Yes (back and neck) ANE Review of Systems - Exercise capacity METS (RN): 4 METS ANE Patient History - Allergies Allergies/Adverse Reactions: aspirin [From Fiorinal] Allergy (Severe, Verified 02/18/17 14:04) WHOLE BODY SWELLED UP butalbital [From Fiorinal] Allergy (Severe, Verified 02/18/17 14:04) WHOLE BODY SWELLED UP erythromycin base [Erythromycin Base] Allergy (Severe, Verified 02/18/17 14:04) THROAT CLOSED UP Penicillins Allergy (Intermediate, Verified 02/18/17 14:04) Hives levofloxacin Allergy (Verified 02/18/17 14:03) Swelling/neck,face,throat - Home Medications Home Medications: Cholecalciferol Vit D3 [Vitamin D3 2000 units (OTC)] 2,000 units PO DAILY [Last Taken 03/08/17] DULoxetine [Cymbalta 30 MG (RX)] 60 mg PO DAILY 09/16/12 [Last Taken 03/17/17] Levothyroxine [Synthroid 50 mcg (RX)] 50 mcg PO DAILY06 09/16/12 [Last Taken 09/21] Ascorbic Acid [Vitamin C 500 mg (*)] 500 mg PO DAILY 02/14/17 [Last Taken ] Gabapentin [Neurontin 300 MG (*)] 600 mg PO HS 02/14/17 [Last Taken 03/17/17] Herbals/Supplements -Info Only 1 ea PO DAILY 02/14/17 [Last Taken 03/08/17] Zolpidem Tartrate [Ambien 5MG (*)] 7.5 mg PO HS 02/14/17 [Last Taken 03/17/17] - NPO status NPO Since - Liquids (Date): 03/24/17 NPO Since - Solids (Date): 03/24/17 - Smoking Hx Smoking Status: Former smoker - Family Anes Hx Family Hx Anesthesia Complications: NONE ANE Labs/Vital Signs - Labs Result Diagrams: 03/25/17 21:35 03/26/17 04:40 - Vital Signs Blood Pressure: 132/57 Heart Rate: 73 Respiratory Rate: 16 O2 Sat (%): 97 Height: 149.86 cm Weight: 48.988 kg ANE Physical Exam - ASA Status ASA Status: III (Pt with severe hypokalemia this am) ANE Anesthesia Plan Lines/Monitors: additional IV (Rechecked serum K this AM- now 2.4. Case cancelled for severe hypokalemia. Recommend repletion.)
[2017-03-26] MEDS: D5W 1/2 NS W/ 20 KCl/L 1,000 ML IV SCH (08:58)
--- NOTE | 2017-03-26 08:59 | SOAPPROG ---
SOAP Progress Note Assessment/Plan: Assessment: Potassium too low and PEG delayed until tomorrow Plan: 1. Patient to receive potassium repletion today 2. Plan on PEG tomorrow, spoke to pharmacy to re dose with vancomycin per-op and hold Lovenox until after procedure. 03/26/17 08:54 Subjective: CC: Dysphagia Dysphagia and aspiration risk s/p cervical neck surgery Objective: Vital Signs Temp Pulse Resp BP Pulse Ox 36.5 C 73 16 132/57 H 97 03/26/17 08:15 03/26/17 08:42 03/26/17 08:42 03/26/17 08:42 03/26/17 08:42 Laboratory Results 03/25/17 21:35 03/26/17 04:40 03/25/17 03/26/17 03/27/17 05:59 05:59 05:59 Intake Total 2372 1765 Output Total 1050 Balance 2372 715 PT 14.4 SEC (12.0-15.0) 03/18/17 12:02 INR 1.13 (0.83-1.16) 03/18/17 12:02 Generic Name Dose Route Start Last Admin Trade Name Freq PRN Reason Stop Dose Admin Acetaminophen 1,000 mg 03/18/17 22:00 03/26/17 05:25 Tylenol PO 09/14/17 21:59 Not Given Q8HRS [facility] Alteplase, Recombinant 2 mg 03/19/17 11:08 03/26/17 06:27 Cathflo Activase IVP 09/15/17 11:07 2 mg PRN PRN Administration Per PICC line policy Ascorbic Acid 500 mg 03/19/17 09:00 03/25/17 08:01 Vitamin C PO 09/15/17 08:59 Not Given DAILY KENDELL Bisacodyl 10 mg 03/18/17 16:48 Dulcolax Rectal RI 09/14/17 16:47 DAILY PRN Constipation Protocol Cholecalciferol 2,000 units 03/19/17 09:00 03/25/17 08:01 Vitamin D PO 09/15/17 08:59 Not Given DAILY [facility] Diazepam 2 - 5 mg 03/18/17 23:58 03/22/17 21:08 Valium Injection IVP 09/14/17 23:57 5 mg Q6 PRN Administration muscle spasms Diphenhydramine HCl 25 - 50 mg 03/18/17 16:48 Benadryl PO 09/14/17 16:47 Q6HRS PRN Itching Diphenhydramine HCl 25 - 50 mg 03/18/17 16:48 Benadryl Injection IVP 09/14/17 16:47 Q6HRS PRN Itching Duloxetine HCl 60 mg 03/19/17 09:00 03/25/17 08:01 Cymbalta PO 09/15/17 08:59 Not Given DAILY KENDELL Enoxaparin Sodium 40 mg 03/20/17 09:00 03/25/17 08:24 Lovenox SC 09/16/17 08:59 40 mg DAILY KENDELL Administration Gabapentin 600 mg 03/18/17 21:00 03/25/17 22:50 Neurontin PO 09/14/17 20:59 Not Given HS KENDELL Famotidine/Sodium Chloride 50 mls @ 200 mls/hr 03/24/17 21:00 03/25/17 22:22 Pepcid 20 Mg (Premix) IV 09/20/17 20:59 50 mls Q12 KENDELL Administration Ertapenem 1 gm/ Sodium 100 mls @ 200 mls/hr 03/25/17 21:00 03/25/17 23:09 Chloride IV 04/24/17 20:59 100 mls DAILY@2100 KENDELL Administration Protocol Potassium Chloride/Dextrose/Sod Cl 1,000 mls @ 100 mls/hr 03/25/17 23:15 08:58 D5w 1/2 Ns W/ 20 Kcl/L IV 09/21/17 23:14 1,000 mls CONT KENDELL Administration Potassium Chloride 50 mls @ 25 mls/hr 03/26/17 05:59 03/26/17 08:58 Potassium Cl 20 Meq (Premix) IV 03/26/17 09:58 50 mls Q2H KENDELL Administration Potassium Chloride/Sodium Chloride 1,000 mls @ 100 mls/hr 03/26/17 08:30 Ns W/ 20 Kcl/L IV 09/22/17 08:29 CONT KENDELL Vancomycin HCl 750 mg/ 150 mls @ 150 mls/hr 03/27/17 09:00 Dextrose IV 03/27/17 09:59 ONCALL ONE Lactulose 20 gm 03/18/17 16:48 03/23/17 12:27 Cephulac PO 09/14/17 16:47 10 gm TID PRN Administration Constipation Protocol Levothyroxine Sodium 50 mcg 03/19/17 06:00 03/26/17 05:25 Synthroid PO 09/15/17 05:59 Not Given DAILY06 [facility] Magnesium Hydroxide 30 ml 03/18/17 16:48 Milk Of Magnesia PO 09/14/17 16:47 DAILY PRN Constipation Protocol Methocarbamol 750 mg 03/18/17 16:59 03/20/17 15:24 Robaxin PO 09/14/17 16:58 750 mg QID PRN Administration Spasms Morphine Sulfate 2 - 4 mg 03/18/17 16:48 03/26/17 08:58 Morphine IVP 03/28/17 16:47 2 mg Q1HR PRN Administration Pain, Breakthrough Ondansetron HCl 4 mg 03/18/17 16:48 03/19/17 21:11 Zofran IVP 09/14/17 16:47 4 mg Q4HRS PRN Administration Nausea/Vomiting, Can't Take PO Ondansetron HCl 4 - 8 mg 03/18/17 16:48 Zofran Odt PO 09/14/17 16:47 Q6HRS PRN Nausea/Vomiting, Use 1st Oxycodone HCl 5 - 10 mg 03/18/17 16:48 03/24/17 01:56 Oxycodone Ir PO 03/28/17 16:47 10 mg Q4HRS PRN Administration Pain, Severe Able to Take PO Polyethylene Glycol 17 gm 03/18/17 22:00 03/25/17 22:51 Miralax PO 09/14/17 21:59 Not Given TID [facility] Potassium Chloride 1 dose 03/25/17 23:03 Protocol Potassium MISC 09/21/17 23:02 AD PRN Pt on Electrolyte Protocol Protocol Senna/Docusate Sodium 1 - 2 tab 03/18/17 21:00 03/25/17 22:50 Senokot-S PO 09/14/17 20:59 Not Given BID [facility] Protocol Discontinued Medications Generic Name Dose Route Start Last Admin Trade Name Freq PRN Reason Stop Dose Admin Acetaminophen 500 mg 03/18/17 16:47 Tylenol PO 03/18/17 17:47 Q6HRS PRN PACU, Pain Mild Hydrocodone Bitart/Acetaminophen 1 - 2 tab 03/18/17 16:47 [place] 5/325 PO 03/18/17 17:47 Q4HRS PRN PACU, Pain Moderate Albuterol 3 ml 03/18/17 16:47 Proventil Neb IH 03/18/17 17:47 Q10M PRN PACU, Wheezing Bacitracin Confirm 03/18/17 06:34 Bacitracin Syringe Administered 03/18/17 06:35 Dose 200,000 units IRR .STK-MED ONE Bacitracin Confirm 03/18/17 08:58 Bacitracin Syringe Administered 03/18/17 08:59 Dose 200,000 units IRR .STK-MED ONE Bupivacaine HCl Confirm 03/18/17 06:34 Sensorcaine 0.25% Sdv Administered 03/18/17 06:35 Dose 30 ml .ROUTE .STK-MED ONE Bupivacaine HCl/Epinephrine Bitart Confirm 03/18/17 06:34 Bupivacaine/Epi Administered 03/18/17 06:35 Dose 60 ml .ROUTE .STK-MED ONE Cefazolin Sodium Confirm 03/18/17 11:46 Ancef Administered 03/18/17 11:47 Dose 1 gm .ROUTE .STK-MED ONE Cefazolin Sodium Confirm 03/18/17 11:46 Ancef Administered 03/18/17 11:47 Dose 1 gm .ROUTE .STK-MED ONE Chlorhexidine Gluconate 1 btl 03/18/17 06:00 03/18/17 16:12 Hibiclens TP 03/18/17 06:01 Not Given ONCALL ONE Dexamethasone 10 mg 03/18/17 06:00 03/18/17 06:27 Decadron Injection IVP 03/18/17 06:01 10 mg ONCALL ONE Administration Dexamethasone Confirm 03/18/17 07:09 Decadron Injection Administered 03/18/17 07:10 Dose 4 mg .ROUTE .STK-MED ONE Dexamethasone 4 mg 03/18/17 16:47 Decadron Injection IVP 03/18/17 17:47 ONCE PRN PACU, Nausea/Vomiting Diazepam Confirm 03/19/17 00:07 Valium Injection Administered 03/19/17 00:08 Dose 10 mg .ROUTE .STK-MED ONE Ephedrine Sulfate Confirm 03/18/17 11:05 Ephedrine Sulfate Administered 03/18/17 11:06 Dose 20 mg .ROUTE .STK-MED ONE Famotidine 20 mg 03/18/17 21:00 03/24/17 10:17 Pepcid PO 09/14/17 20:59 Not Given BID KENDELL Fentanyl Confirm 03/18/17 07:09 Sublimaze Administered 03/18/17 07:10 Dose 100 mcg .ROUTE .STK-MED ONE Fentanyl 25 - 50 mcg 03/18/17 16:47 03/18/17 16:58 Sublimaze IVP 03/18/17 17:47 50 mcg Q5M PRN Administration PACU, Pain Severe Fentanyl Confirm 03/18/17 16:57 Sublimaze Administered 03/18/17 16:58 Dose 100 mcg .ROUTE .STK-MED ONE Hydromorphone HCl Confirm 03/18/17 07:09 Dilaudid Administered 03/18/17 07:10 Dose 2 mg .ROUTE .STK-MED ONE Hydromorphone HCl 0.2 - 0.4 mg 03/18/17 16:47 Dilaudid IVP 03/18/17 17:47 Q10M PRN PACU, Pain Severe (Unable PO) Lactated Ringer's 1,000 mls @ 0 mls/hr 03/18/17 06:07 03/18/17 06:28 Lr IV 03/18/17 06:08 1,000 mls ONCE ONE Administration KVO Cefazolin Sodium/Dextrose 100 mls @ 200 mls/hr 03/18/17 07:00 03/18/17 16:11 Ancef 2 Gm (Premix) IV 03/18/17 07:29 Not Given ONCALL ONE Tranexamic Acid 1,000 mg/ 100 mls @ 5 mls/hr 03/18/17 12:00 03/18/17 16:12 Sodium Chloride IV 03/19/17 07:59 Not Given ONCALL ONE Dexmedetomidine HCl 400 mcg/ 104 mls @ 0 mls/hr 03/18/17 16:00 Sodium Chloride IV 09/14/17 15:59 CONT KENDELL Protocol Per Protocol Dexmedetomidine HCl 400 mcg/ 104 mls @ 0 mls/hr 03/18/17 16:00 03/18/17 18:02 Sodium Chloride IV 03/18/17 16:01 104 mls ONCE ONE Administration Protocol Per Protocol Cefazolin Sodium/Dextrose 100 mls @ 200 mls/hr 03/18/17 20:00 03/19/17 04:55 Ancef 2 Gm (Premix) IV 03/19/17 04:29 100 mls Q8H KENDELL Administration Protocol Sodium Chloride 1,000 mls @ 100 mls/hr 03/18/17 17:00 03/24/17 23:29 Ns IV 09/14/17 16:59 1,000 mls CONT KENDELL Administration Dexmedetomidine HCl 400 mcg/ 104 mls @ 0 mls/hr 03/18/17 17:30 03/18/17 23:31 Sodium Chloride IV 09/14/17 17:29 104 mls CONT KENDELL Administration Protocol Titrate Sodium Chloride 500 mls @ 0 mls/hr 03/18/17 19:00 03/18/17 20:29 Ns IV 03/18/17 19:01 500 mls ONCE ONE Administration Wide Open Sodium Chloride 500 mls @ 0 mls/hr 03/19/17 08:00 03/19/17 08:00 Ns IV 03/19/17 08:01 500 mls ONCE ONE Administration Wide Open Norepinephrine 4 mg/ Dextrose 500 mls @ 0 mls/hr 03/19/17 11:30 IV 09/15/17 11:29 CONT KENDELL Protocol Titrate Norepinephrine/Sodium Chloride 500 mls @ 0 mls/hr 03/19/17 17:30 03/20/17 05: 38 Norepinephrine 8 Mcg/Ml (Premix) IV 09/15/17 17:29 500 mls CONT KENDELL Administration Protocol Per Protocol Albumin Human 100 mls @ 0 mls/hr 03/20/17 11:09 03/20/17 13:04 Flexbumin 25 % (Premix) IV 03/20/17 11:10 Not Given ONCE ONE As Directed Dextrose/Sodium Chloride 1,000 mls @ 75 mls/hr 03/25/17 07:00 03/25/17 07:34 D5w 1/2 Ns IV 09/21/17 06:59 1,000 mls CONT KENDELL Administration Vancomycin HCl 750 mg/ 150 mls @ 150 mls/hr 03/25/17 13:00 Dextrose IV 03/25/17 13:59 ONCALL ONE Vancomycin HCl 750 mg/ 150 mls @ 150 mls/hr 03/26/17 07:00 Dextrose IV 03/26/17 07:59 ONCALL ONE Potassium Chloride 100 mls @ 100 mls/hr 03/25/17 23:15 03/26/17 01:19 Potassium Cl 10 Meq (Premix) IV 03/26/17 01:14 100 mls Q1H KENDELL Administration Lidocaine HCl 0.2 ml 03/18/17 06:07 Xylocaine-Mpf 1% Sdv ID 03/18/17 23:59 ONCE PRN IV Start Lidocaine HCl Confirm 03/18/17 07:09 Lidocaine Hcl 2% Administered 03/18/17 07:10 Dose 100 mg .ROUTE .STK-MED ONE Meperidine HCl 12.5 - 25 mg 03/18/17 16:47 Demerol 25 Mg/Ml Syringe IVP 03/18/17 17:47 ONCE PRN PACU,shivering/rigors Midazolam HCl 2 mg 03/18/17 07:07 03/18/17 16:12 Versed IVP 03/18/17 07:08 Not Given ONCE ONE Midazolam HCl Confirm 03/18/17 07:08 Versed Administered 03/18/17 07:09 Dose 2 mg .ROUTE .STK-MED ONE Midazolam HCl 2 mg 03/18/17 06:53 03/18/17 16:12 Versed IVP 03/18/17 06:54 Not Given ONCE ONE Morphine Sulfate 0 mg 03/18/17 17:04 03/19/17 21:55 Morphine Supervisor Final IV 03/28/17 17:03 30 mg PRN PRN Administration Pain, Severe Unable to Take PO Protocol Morphine Sulfate 15 mg 03/18/17 21:00 03/21/17 08:02 Ms Contin/Oramorph PO 03/28/17 20:59 15 mg BID KENDELL Administration Naloxone HCl 0.1 mg 03/18/17 16:47 Narcan IVP 03/18/17 17:47 Q2M PRN PACU Resp Rate <10/min Naloxone HCl 0.4 mg 03/18/17 17:13 Narcan IVP 09/14/17 17:12 PRN PRN Respiratory depression Protocol Ondansetron HCl Confirm 03/18/17 07:09 Zofran Administered 03/18/17 07:10 Dose 4 mg .ROUTE .STK-MED ONE Ondansetron HCl 2 - 4 mg 03/18/17 16:47 Zofran IVP 03/18/17 17:47 Q10M PRN PACU, Nausea/Vomiting Oxycodone HCl 10 mg 03/18/17 06:00 03/18/17 06:17 Oxycontin PO 03/18/17 06:01 10 mg ONCALL ONE Administration Oxycodone/Acetaminophen 1 - 2 tab 03/18/17 16:47 Percocet 5/325 PO 03/18/17 17:47 Q4HRS PRN PACU, Pain Severe Phenylephrine HCl Confirm 03/18/17 07:32 Neosynephrine Administered 03/18/17 07:33 Dose 1,000 mcg .ROUTE .STK-MED ONE Phenylephrine HCl Confirm 03/18/17 12:22 Neosynephrine Administered 03/18/17 12:23 Dose 1,000 mcg .ROUTE .STK-MED ONE Potassium Chloride 40 meq 03/25/17 23:01 03/25/17 23:32 Klor-Con PO 03/25/17 23:02 Not Given ONCE ONE Promethazine HCl 6.25 - 12.5 mg 03/18/17 16:47 Phenergan IVP 03/18/17 17:47 Q5M PRN PACUNausea/Vomiting, Unable PO Propofol Confirm 03/18/17 07:10 Diprivan Administered 03/18/17 07:11 Dose 200 mg .ROUTE .STK-MED ONE Propofol Confirm 03/18/17 07:10 Diprivan 10 Mg/Ml (Premix) Administered 03/18/17 07:11 Dose 500 mg IV .STK-MED ONE Propofol Confirm 03/18/17 13:14 Diprivan 10 Mg/Ml (Premix) Administered 03/18/17 13:15 Dose 500 mg IV .STK-MED ONE Remifentanil Confirm 03/18/17 07:10 Ultiva Administered 03/18/17 07:11 Dose 1 mg .ROUTE .STK-MED ONE Remifentanil Confirm 03/18/17 13:14 Ultiva Administered 03/18/17 13:15 Dose 1 mg .ROUTE .STK-MED ONE Rocuronium [place] Confirm 03/18/17 07:09 Zemuron Administered 03/18/17 07:10 Dose 50 mg .ROUTE .STK-MED ONE Sodium Citrate Confirm 03/18/17 06:34 Acd-A Administered 03/18/17 06:35 Dose 1,000 ml .ROUTE .STK-MED ONE Sodium Citrate Confirm 03/18/17 12:14 Acd-A Administered 03/18/17 12:15 Dose 500 ml .ROUTE .STK-MED ONE Sodium Citrate Confirm 03/18/17 14:06 Acd-A Administered 03/18/17 14:07 Dose 500 ml .ROUTE .STK-MED ONE Succinylcholine Chloride Confirm 03/18/17 07:14 Quelicin Administered 03/18/17 07:15 Dose 200 mg IVP .STK-MED ONE Thrombin Confirm 03/18/17 06:34 Thrombin-Jmi Administered 03/18/17 06:35 Dose 5,000 unit TP .STK-MED ONE Thrombin Confirm 03/18/17 06:46 Thrombin-Jmi Administered 03/18/17 06:47 Dose 20,000 unit TP .STK-MED ONE Thrombin Confirm 03/18/17 10:34 Thrombin-Jmi Administered 03/18/17 10:35 Dose 20,000 unit TP .STK-MED ONE Thrombin Confirm 03/18/17 11:36 Thrombin-Jmi Administered 03/18/17 11:37 Dose 20,000 unit TP .STK-MED ONE Thrombin Confirm 03/18/17 12:05 Thrombin-Jmi Administered 03/18/17 12:06 Dose 20,000 unit TP .STK-MED ONE Thrombin Confirm 03/18/17 13:23 Thrombin-Jmi Administered 03/18/17 13:24 Dose 20,000 unit TP .STK-MED ONE Vancomycin HCl 1 each 03/26/17 07:00 Vancomycin Pharmacy To Dose, 10-15 Mcg/Ml [facility] 09/22/17 06:59 AD [facility] Protocol Physical Exam - Physical Exam General Appearance: alert, no apparent distress Respiratory: lungs clear, normal breath sounds Abdomen: normal bowel sounds, non-tender, soft Skin: normal color, warm/dry Neuro/Psych: no motor/sensory deficits, alert, normal mood/affect, oriented x 3 ICD10 Worksheet Patient Problems: Problems Problem Status Onset Anemia due to blood loss, acute Acute Chronic pain Acute Pneumonia Acute S/P lumbar spinal fusion Acute
[2017-03-26] MEDS: DULoxetine 30 MG CAP PO SCH (09:06)
[2017-03-26] MEDS: CHOLECALCIFEROL VIT D3 1,000 UNITS TAB PO SCH (09:06)
[2017-03-26] MEDS: ASCORBIC ACID 500 MG TAB PO SCH (09:06)
[2017-03-26] MEDS: POLYETHYLENE GLYCOL 3350 17 GM PKT PO SCH ×3 (09:07→20:34)
[2017-03-26] MEDS: SENNOSIDES/DOCUSATE SODIUM TAB PO SCH ×2 (09:07→20:34)
[2017-03-26] MEDS: FAMOTIDINE 20 MG/NACL 50 ML IV SCH ×2 (11:08→21:17)
[2017-03-26] MEDS: ENOXAPARIN 40 MG/0.4 ML SYR SC SCH (11:09)
[2017-03-26 11:17] LABS: ANION GAP 5 mEq/L (8-16); CALCIUM 8.2 mg/dL (8.5-10.4); CARBON DIOXIDE 39 mEq/l (22-31); CHLORIDE 92 mEq/L (97-110); CREATININE 0.5 mg/dL (0.6-1.0); GLOMERULAR FILTRATION RATE > 60; GLUCOSE 113 mg/dL (70-100); POTASSIUM 3.1 mEq/L (3.5-5.2); SODIUM 136 mEq/L (134-144)
--- NOTE | 2017-03-26 11:49 | GCON ---
[f rep st] CONSULTATION DATE OF CONSULTATION: 03/25/2017 REASON FOR CONSULTATION: I was asked by Wilfrid Arredondo and Dr. Solorzano to see the patient in regard to her breathing difficulties, including hematemesis. HISTORY OF PRESENT ILLNESS: This is a 76-year-old female, who underwent a cervical spine fusion on 03/18/2017. Her postoperative course has been somewhat prolonged. She initially required pressors in the intensive care unit. This is thought to be a combination of volume and narcotics. Ongoing course has been notable for significant dysphagia. She had a video swallow today, which showed silent aspiration, as well as severe oropharyngeal dysphagia. She has been coughing a lot. She has some chest pain. Today, she had a small episode of hematemesis prompting internal medicine consultation. She has not had any recorded fevers during her hospitalization. She is currently on 2 L of oxygen saturating at 90%; she does not normally take oxygen. Labs have not been drawn for the past few days, though she is noted to have a normal kidney function. She had a mildly elevated white count and falling platelets on the . She has been on Lovenox prophylaxis, which started on the . Plan is for her to have a PEG placed tomorrow by Dr. Goetz. PAST MEDICAL/SURGICAL HISTORY: 1. Hypothyroid. 2. Multiple spinal surgeries. 3. Rheumatoid arthritis. 4. Depression. 5. Hypertension. 6. Vertigo. 7. Remote spinal abscess. 8. Breast cancer. 9. Chronic rotator cuff tear. 10. History of a cleft palate. 11. Left mastectomy. MEDICATIONS: Please see medication reconciliation. ALLERGIES: Aspirin, butalbital, erythromycin, penicillin SOCIAL HISTORY: She is a nonsmoker and nondrinker. FAMILY HISTORY: She says that no one in her family has any complaints. REVIEW OF SYSTEMS: 10-point review of systems is conducted and is negative except per HPI. PHYSICAL EXAMINATION: VITAL SIGNS: Blood pressure 154/66, heart rate 66, respiration rate 14, saturating 98% on 2 L. Temperature is 36.7. GENERAL: The patient is a pleasant female, who appears somewhat uncomfortable, lying on her side in bed. HEENT: Shows her to be wearing a face mask. She is normocephalic. CARDIOVASCULAR: Shows a regular rate and rhythm. There are no murmurs, rubs, or gallops. PULMONARY: Shows her to have bilateral basilar crackles. SKIN: Shows no rash. : Shows no Masters. ABDOMEN: Shows her to be soft, nontender, nondistended. NEUROLOGIC: Shows her to be alert and oriented x3. She is moving all extremities. PSYCHIATRIC: Shows normal mood and affect. LABORATORIES: As noted per HPI. DATA: 1. I discussed this with Wilfrid Arredondo. Will consult. 2. I personally viewed and interpreted her chest x-ray. This shows bilateral basilar infiltrates. IMPRESSION AND PLAN: A 76-year-old female, who is status post C-spine fusion, presents with suspected pneumonia. 1. Suspected pneumonia: She has infiltrates on chest x-ray, cough, some mild hemoptysis, and some chest pain. I think pneumonia best explains all these symptoms but other considerations would include acute coronary syndrome, pulmonary embolus. Also consider volume overload. Will check a set of labs, including CBC, BMP, BNP, troponins, check EKG. Draw blood cultures. Check procalcitonin. Start her on Invanz empirically. Based on above workup, would consider CT angiogram if she continues to worsen, though I think her hypoxia is best explained by infiltrates on chest x-ray. She has been on Lovenox prophylaxis making PE less likely. Acute coronary syndrome would not explain her cough or hemoptysis. 2. C-spine fusion: Followed by Neurosurgery. 3. Postoperative dysphagia with PEG planned for tomorrow: Certainly puts her at risk for aspiration. 4. Hypothyroid: Thank you for involving Hospital Medicine in the care of the patient. We will continue to follow with you. /[id number]/MODL MTDD
--- NOTE | 2017-03-26 12:35 | SOAPPROG ---
SOAP Progress Note Assessment/Plan: Assessment: POD #8 severe dysphagia s/p C3-T7 instrumentation and T3 wedge with removal of posterior cervical and upper thoracic hardware generalized weakness 2/2 poor PO intake, no focal weakness. Neuro stable unable to get PEG today due to low K+. This is being repleted and she will get PEG tmrw Medicine assisting with Mgmt of pulmonary issues and bloody sputum. Plan: CPM with PT/OT/ST no collar needed at this time Pt agrees to proceed with PEG with GI on Friday Pulmo issues per medicine. Pt now in INvanz and continuous 02. Discussed with Dr. Barber Subjective: awake, alert, pain controlled currently weak cough Objective: Vital Signs Temp Pulse Resp BP Pulse Ox 36.6 C 77 16 130/63 H 95 03/26/17 11:47 03/26/17 11:47 03/26/17 11:47 03/26/17 11:47 03/26/17 11:47 Laboratory Results 03/25/17 21:35 03/26/17 10:45 03/25/17 03/26/17 03/27/17 05:59 05:59 05:59 Intake Total 2372 1765 Output Total 1050 Balance 2372 715 PT 14.4 SEC (12.0-15.0) 03/18/17 12:02 INR 1.13 (0.83-1.16) 03/18/17 12:02 Neuro: A+Ox4 MORRELL, sens +LT equal strength in bilateral upper/lower ext sens +LT Incision: CDI No MARK ICD10 Worksheet Patient Problems: Problems Problem Status Onset Anemia due to blood loss, acute Acute Chronic pain Acute Pneumonia Acute S/P lumbar spinal fusion Acute
--- NOTE | 2017-03-26 13:59 | HOSPPROG ---
Hospitalist Progress Note Assessment/Plan: Acute hypoxemic respiratory failure secondary to aspiration pneumonia (hospital acquired) - Lots of sputum production, no more hemoptysis, culture ordered. BCx 's pending. On 3 LPM O2. -Cont Invanz -Follow culture data Dysphagia with silent aspiration seen on VFSS - PEG planned for tomorrow. -dietary consult -tube feeds planned Hypokalemia - improving with aggressive replacement. -cont to follow closely Elevated troponin - This occurred in the setting of chest discomfort, though that may be explained by PNA with b/l infiltrates. This likely represents a troponin leak in setting of infection / aspiration. Trop now trending down. She is chest pain free. EKG abnormal with Q's in inferior leads. No h/o TX. Had neg stress test 4 yrs ago. -check echo for WMA -likely warrants stress testing prior to dc Acute blood loss anemia - s/p 4 u prb'cs, 2 u FFP, 1 u plts. Hgb stable. Full code Dispo - cont inpt Subjective: Pt coughing up quite a bit of dark sputum. No barbara hemoptysis. Denies CP or SOB except when coughing. She is lying flat on her back, denies orthopnea. No fevers. Objective: Vital Signs Temp Pulse Resp BP Pulse Ox 36.6 C 77 16 130/63 H 95 03/26/17 11:47 03/26/17 11:47 03/26/17 11:47 03/26/17 11:47 03/26/17 11:47 Laboratory Results 03/25/17 21:35 03/26/17 10:45 03/25/17 03/26/17 03/27/17 05:59 05:59 05:59 Intake Total 2372 1765 Output Total 1050 Balance 2372 715 PT 14.4 SEC (12.0-15.0) 03/18/17 12:02 INR 1.13 (0.83-1.16) 03/18/17 12:02 - Physical Exam Constitutional: no apparent distress Eyes: PERRL Ears, Nose, Mouth, Throat: moist mucous membranes Cardiovascular: regular rate and rhythym Respiratory: reduced air movement, inspiratory crackles Gastrointestinal: normoactive bowel sounds, soft, non-tender abdomen Skin: warm Musculoskeletal: full muscle strength Neurologic: AAOx3 Psychiatric: interacting appropriately ICD10 Worksheet Patient Problems: Problems Problem Status Onset Anemia due to blood loss, acute Acute Chronic pain Acute Pneumonia Acute S/P lumbar spinal fusion Acute
[2017-03-26 17:58] LABS: POTASSIUM 3.9 mEq/L (3.5-5.2)
[2017-03-26] MEDS ORDERED: POTASSIUM Cl (KCl) 50 ML IV ONE (20:07)
[2017-03-26] MEDS: ERTAPENEM 1 GM in NS 100 ML IV SCH (20:32)
[2017-03-26] MEDS: GABAPENTIN 300 MG CAP PO SCH (20:33)
[2017-03-27] MEDS: D5W 1/2 NS W/ 20 KCl/L 1,000 ML IV SCH ×2 (02:13→20:29)
[2017-03-27] MEDS: LEVOTHYROXINE 50 MCG TAB PO SCH (04:34)
[2017-03-27] MEDS: ACETAMINOPHEN 500 MG TAB PO SCH ×3 (04:34→22:19)
[2017-03-27 04:49] LABS: ANION GAP 3 mEq/L (8-16); CALCIUM 8.6 mg/dL (8.5-10.4); CARBON DIOXIDE 38 mEq/l (22-31); CHLORIDE 94 mEq/L (97-110); CREATININE 0.5 mg/dL (0.6-1.0); GLOMERULAR FILTRATION RATE > 60; GLUCOSE 130 mg/dL (70-100); POTASSIUM 3.4 mEq/L (3.5-5.2); SODIUM 135 mEq/L (134-144)
[2017-03-27 04:52] LABS: % IMMATURE GRANULYOCYTES 1.5 % (0.0-1.1); ABSOLUTE IMMATURE GRANULOCYTES 0.13 10^3/uL (0.00-0.10); ADD DIFF? NO; ADD MORPH? NO; ADD SCAN? NO; ATYPICAL LYMPHOCYTE FLAG 10 (0-99); FRAGMENT RBC FLAG 0 (0-99); HEMATOCRIT 34.2 % (38.0-47.0); HEMOGLOBIN 11.2 g/dL (12.6-16.3); LEFT SHIFT FLG 10 (0-99); LIPEMIA HEMOLYSIS FLAG 80 (0-99); MEAN CELL HEMOGLOBIN 28.4 pg (27.9-34.1); MEAN CELL HEMOGLOBIN CONCENTR. 32.7 g/dL (32.4-36.7); MEAN CELL VOLUME 86.8 fL (81.5-99.8); MEAN PLATELET VOLUME 8.9 fL (8.7-11.7); PLATELET CLUMPS FLAG 10 (0-99); PLATELET COUNT 232 10^3/uL (150-400); RED BLOOD CELL COUNT 3.94 10^6/uL (4.18-5.33); RED CELL DISTRIBUTION WIDTH 15.1 % (11.5-15.2)
--- NOTE | 2017-03-27 05:46 | SOAPPROG ---
SOAP Progress Note Assessment/Plan: Assessment: POD #9 severe dysphagia s/p C3-T7 instrumentation and T3 wedge with removal of posterior cervical and upper thoracic hardware generalized weakness 2/2 poor PO intake, no focal weakness. Neuro stable PEG today with GI Medicine assisting with Mgmt of pulmonary issues and bloody sputum. Plan: no collar needed at this time Pt agrees to proceed with PEG, Pulmo issues per medicine. Pt now in Invanz and continuous 02. 03/27/17 05:43 Subjective: awake, comfortable no overnight issues Objective: Vital Signs Temp Pulse Resp BP Pulse Ox 36.6 C 63 17 125/61 H 93 03/27/17 04:00 03/27/17 04:00 03/27/17 04:00 03/27/17 04:00 03/27/17 04:00 Microbiology 03/26/17 Unknown - Final Sputum, Expectorated Laboratory Results 03/27/17 04:28 03/27/17 04:28 03/25/17 03/26/17 03/27/17 05:59 05:59 05:59 Intake Total 2372 1765 1681 Output Total 1050 Balance 2372 715 1681 PT 14.4 SEC (12.0-15.0) 03/18/17 12:02 INR 1.13 (0.83-1.16) 03/18/17 12:02 Neuro: MORRELL, sens +LT incision: CDI ICD10 Worksheet Patient Problems: Problems Problem Status Onset Anemia due to blood loss, acute Acute Chronic pain Acute Pneumonia Acute S/P lumbar spinal fusion Acute
[2017-03-27] MEDS ORDERED: VANCOMYCIN 750 MG in D5W 150 ML IV ONE (09:00)
[2017-03-27] MEDS: FAMOTIDINE 20 MG/NACL 50 ML IV SCH ×2 (09:14→23:10)
[2017-03-27] MEDS: SENNOSIDES/DOCUSATE SODIUM TAB PO SCH ×2 (09:28→22:20)
[2017-03-27] MEDS: CHOLECALCIFEROL VIT D3 1,000 UNITS TAB PO SCH (09:28)
[2017-03-27] MEDS: DULoxetine 30 MG CAP PO SCH (09:28)
[2017-03-27] MEDS: ASCORBIC ACID 500 MG TAB PO SCH (09:28)
[2017-03-27] MEDS: POLYETHYLENE GLYCOL 3350 17 GM PKT PO SCH ×3 (09:28→22:20)
[2017-03-27] MEDS: POTASSIUM Cl (KCl) 50 ML IV SCH ×3 (09:40→15:40)
[2017-03-27] MEDS ORDERED: oxyCODONE IR 5 MG TAB PO PRN ×2 (10:30→21:36)
[2017-03-27] MEDS ORDERED: PROPOFOL/EMULSION 500 MG/50 ML BOTTLE IV ONE (11:32)
[2017-03-27] MEDS ORDERED: LR 1,000 ML IV ONE (12:23)
--- NOTE | 2017-03-27 12:45 | PDHPUP ---
History & Physical Update H&P update statement: This history and physical update is based on an assessment of the patient which was completed after admission or registration (within 24 hours), but prior to the surgery/procedure. H&P update: H&P reviewed & patient examined, no change in patient's condition since H&P completed
[2017-03-27] MEDS ORDERED: KETAMINE 100 MG/10 ML SYR ONE (12:55)
[2017-03-27] MEDS ORDERED: ONDANSETRON 4 MG/2 ML VIAL IVP PRN (13:10)
[2017-03-27] MEDS ORDERED: NALOXONE HCL 0.4 MG/ML INJ IVP PRN (13:10)
--- NOTE | 2017-03-27 13:14 | PDANEPAE ---
ANE History of Present Illness patient presents for peg tube ANE Past Medical History - Cardiovascular History Hx Hypertension: No Hx Arrhythmias: No Hx Chest Pain: No Hx Coronary Artery / Peripheral Vascular Disease: No Hx CHF / Valvular Disease: No Hx Palpitations: No - Pulmonary History Hx COPD: No Hx Asthma/Reactive Airway Disease: No Hx Recent Upper Respiratory Infection: No Hx Oxygen in Use at Home: No - Neurologic History Hx Cerebrovascular Accident: No Hx Seizures: No Hx Dementia: No - Endocrine History Hx Diabetes: No - Renal History Hx Renal Disorders: No - Liver History Hx Hepatic Disorders: No - Neurological & Psychiatric Hx Hx Neurological and Psychiatric Disorders: Yes - Cancer History Hx Cancer: Yes - Congenital Disorder History Hx Congenital Disorders: Yes - GI History Hx Gastrointestinal Disorders: Yes - Chronic Pain History Chronic Pain: Yes (back and neck) ANE Review of Systems - Exercise capacity METS (RN): 4 METS ANE Patient History - Allergies Allergies/Adverse Reactions: aspirin [From Fiorinal] Allergy (Severe, Verified 02/18/17 14:04) WHOLE BODY SWELLED UP butalbital [From Fiorinal] Allergy (Severe, Verified 02/18/17 14:04) WHOLE BODY SWELLED UP erythromycin base [Erythromycin Base] Allergy (Severe, Verified 02/18/17 14:04) THROAT CLOSED UP Penicillins Allergy (Intermediate, Verified 02/18/17 14:04) Hives levofloxacin Allergy (Verified 02/18/17 14:03) Swelling/neck,face,throat - Home Medications Home Medications: Cholecalciferol Vit D3 [Vitamin D3 2000 units (OTC)] 2,000 units PO DAILY [Last Taken 03/08/17] DULoxetine [Cymbalta 30 MG (RX)] 60 mg PO DAILY 09/16/12 [Last Taken 03/17/17] Levothyroxine [Synthroid 50 mcg (RX)] 50 mcg PO DAILY06 09/16/12 [Last Taken 09/21] Ascorbic Acid [Vitamin C 500 mg (*)] 500 mg PO DAILY 02/14/17 [Last Taken ] Gabapentin [Neurontin 300 MG (*)] 600 mg PO HS 02/14/17 [Last Taken 03/17/17] Herbals/Supplements -Info Only 1 ea PO DAILY 02/14/17 [Last Taken 03/08/17] Zolpidem Tartrate [Ambien 5MG (*)] 7.5 mg PO HS 02/14/17 [Last Taken 03/17/17] - NPO status NPO Since - Liquids (Date): 03/27/17 NPO Since - Liquids (Time): 00:00 NPO Since - Solids (Date): 03/27/17 NPO Since - Solids (Time): 00:00 - Smoking Hx Smoking Status: Former smoker - Family Anes Hx Family Hx Anesthesia Complications: NONE ANE Labs/Vital Signs - Labs Result Diagrams: 03/27/17 04:28 03/27/17 04:28 - Vital Signs Blood Pressure: 122/74 Heart Rate: 76 Respiratory Rate: 20 O2 Sat (%): 93 Height: 149.86 cm Weight: 48.988 kg ANE Physical Exam - Airway Neck exam: spinal fusion Mallampati Score: Class 3 Mouth exam: small mouth opening - Pulmonary Pulmonary: no respiratory distress, reduced air movement - Cardiovascular Cardiovascular: regular rate and rhythym - ASA Status ASA Status: III ANE Anesthesia Plan Anesthesia Plan: GA with mask (rba discussed)
--- NOTE | 2017-03-27 13:26 | POSTOPPROG ---
Post Op Note Date of Operation: 03/27/17 Surgeon: Marck Goetz Anesthesia: Other (Specify) (General) Pre-op Diagnosis: dysphagia Post-op Diagnosis: dysphagia s/p PEG placement Indication: dysphagia, aspiration risk Procedure: PEG Findings: standard PEG placement Inf/Abcess present in the surg proc area at time of surgery?: No Complications: none Specimen(s): none
--- NOTE | 2017-03-27 13:53 | POSTANESTH ---
Post Anesthetic Evaluation Cardiovascular Status: Normal, Stable Respiratory Status: Normal, Stable Level of Consciousness/Mental Status: Mildly Sleepy, Arousable Pain Control: Adequate, Prn Tx Ordered Nausea/Vomiting Control: Adequate, Prn Tx Ordered Complications Possibly Related to Anesthesia: None Noted
--- NOTE | 2017-03-27 14:28 | HOSPPROG ---
Hospitalist Progress Note Assessment/Plan: Acute hypoxemic respiratory failure secondary to aspiration pneumonia (hospital acquired) - Lots of sputum production, no more hemoptysis. Sputum Cx only growing nitin. BCx's ngtd. On 3 LPM O2. -Cont Invanz -Follow culture data Dysphagia with silent aspiration seen on VFSS - NPO. PEG placed today per GI. -Start tube feeds Hypokalemia - improving with aggressive replacement. -cont to follow closely Elevated troponin - This occurred in the setting of chest discomfort, though that may be explained by PNA with b/l infiltrates. This likely represents a troponin leak in setting of infection / aspiration. Trop now trending down. She is chest pain free. EKG abnormal with Q's in inferior leads. No h/o NV. Had neg stress test 4 yrs ago. -check echo for WMA -likely warrants stress testing prior to dc Acute blood loss anemia - s/p 4 u prb'cs, 2 u FFP, 1 u plts. Hgb stable. Full code Dispo - cont inpt Subjective: Pt is sleepy after PEG procedure. No fevers. No complaints. Objective: Vital Signs Temp Pulse Resp BP Pulse Ox 37.1 C 93 15 119/60 100 03/27/17 14:00 03/27/17 14:00 03/27/17 14:10 03/27/17 14:01 03/27/17 14:10 Microbiology 03/26/17 Unknown - Final Sputum, Expectorated Laboratory Results 03/27/17 04:28 03/27/17 04:28 03/26/17 03/27/17 03/28/17 05:59 05:59 05:59 Intake Total 1765 1681 1000 Output Total 1050 400 Balance 715 1681 600 PT 14.4 SEC (12.0-15.0) 03/18/17 12:02 INR 1.13 (0.83-1.16) 03/18/17 12:02 - Physical Exam Constitutional: no apparent distress Eyes: PERRL Ears, Nose, Mouth, Throat: moist mucous membranes Cardiovascular: regular rate and rhythym Respiratory: no respiratory distress, clear to auscultation Gastrointestinal: normoactive bowel sounds, soft, non-tender abdomen Skin: warm Musculoskeletal: generalized weakness ICD10 Worksheet Patient Problems: Problems Problem Status Onset Anemia due to blood loss, acute Acute Chronic pain Acute Pneumonia Acute S/P lumbar spinal fusion Acute
--- NOTE | 2017-03-27 16:37 | ECHO ---
[id number] + + [address] : : [place] [address] : : [phone] + + Adult Echocardiographic Report + -----+ :Name: SILAS COE RStudy Date: 03/27/2017 02:45 PM : : Hospital Admission Number: [id number] Location : 356: :: 1940 Gender: Female Height: 59 in : :Age: 76 yrs Race: WH Weight: 108 lb : :Reason For Study: Elevated troponin/inferior Q waves/eval : :for WMA BSA: 1.4 meters2 : + -----+ MMode/2D Measurements \T\ Calculations IVSd: 0.68 cm LVIDd: 3.5 cm FS: 32.8 % Ao root diam: 3.2 cm LVPWd: 0.93 cm LVIDs: 2.4 cm EDV(Teich): 52.0 ml LA dimension: 2.5 cm ESV(Teich): 19.6 ml EF(Teich): 62.4 % Normal Measurement Values: + + :LVIDd (3.5-5.7cm) IVSd (0.6-1.1cm) LVPWd (0.6-1.1cm) Aortic Root (2.0-3.7cm)Left Atrium (1.5-4.0cm): :LV Vol(d) (76-115ml) LV Vol(s) (29-48ml) Ejec Fraction (50-65%)PV Sahil (0.6- 1.2m/s) TV Sahil (0.4-1.0m/s) : :MV E Sahil (0.8-1.0m/s)MV A Sahil (0.3-1.0m/s)LVOT Sahil (0.7-1.2m/s) Asc Ao Sahil ( 0.9-1.8m/s) : + + Left Ventricle The left ventricle is normal in size. The left ventricle is hyperdynamic. Ejection Fraction = 70-75%. Not all LV segments visualized. Mitral Valve There is mild mitral regurgitation. Tricuspid Valve Normal tricuspid valve. There is mild tricuspid regurgitation. Aortic Valve The aortic valve opens well. Great Vessels The aortic root is normal size. Pericardium/Pleural Trace anterior pericardial effusion vs. fat pad. Conclusion A two-dimensional transthoracic echocardiogram, with color flow Doppler was performed. Limited views available for evaluating (post op back on left breast implant). The left ventricle is hyperdynamic. Ejection Fraction = 70-75%. Not all LV segments visualized. There is mild mitral regurgitation. There is mild tricuspid regurgitation. Trace anterior pericardial effusion vs. fat pad. Final Reading Physician: Sharif Aparicio signed on 03/27/2017 04:36 PM Ordering Physician: Carrie Raymond Performed By: Lainey Bright RDCS
[2017-03-27 18:33] LABS: POTASSIUM 4.1 mEq/L (3.5-5.2)
[2017-03-27] MEDS: GABAPENTIN 300 MG CAP PO SCH (22:20)
[2017-03-27] MEDS: ERTAPENEM 1 GM in NS 100 ML IV SCH (22:28)
--- NOTE | 2017-03-28 00:10 | GPN ---
[f rep st] PROCEDURE NOTE PREOPERATIVE DIAGNOSIS: Percutaneous endoscopic gastrostomy tube placement. POSTOPERATIVE DIAGNOSIS: Percutaneous endoscopic gastrostomy tube placement. INDICATIONS: A 76-year-old woman status post cervical neck fusion. Patient with dysphagia. She had a swallow evaluation and has aspiration risk. She presents today for PEG tube placement. PHYSICAL EXAMINATION: VITAL SIGNS: Blood pressure 122/74, respiratory rate is 20, heart rate is 76, 93% sat. LUNGS: Clear. CARDIAC: Normal S1, S2. ABDOMEN: Benign. PERMIT: Procedure was explained to the patient. Risks and benefits of the procedure outlined with patient. Informed consent was obtained. PREOPERATIVE MEDICATIONS: General Anesthesia DESCRIPTION OF PROCEDURE: Patient placed in the supine position. GIF-180 video scope was passed in the oropharynx under direct visualization to the esophagus, through the stomach, pylorus and 1st and 2nd portions of the duodenum. Duodenal sweep was normal. Endoscope was brought back in the stomach. Retroflexed view of the stomach revealed a normal angularis, fundus, and cardia. Endoscope was un-retroflexed. There was evidence of gastritis in the antrum. No ulcerations identified. No other significant pathology identified. Abdominal wall was transilluminated. The skin was then prepped and draped in the usual manner after being marked. The skin was then anesthetized with 1% lidocaine. A finder needle was placed in the intragastric cavity. Needle was withdrawn. A small incision was made with a scalpel in the skin. The needle cannula then was placed in the incision into the intragastric cavity. The needle was withdrawn. The insertion wire was placed through the cannula and into the intragastric cavity. The internal portion of the wire was then grabbed with a snare and pulled out through the patient's mouth. The endoscope was withdrawn. The 20-[employer] gastrostomy feeding tube was then attached to the wire. The wire was then pulled through the abdominal wall through the incision, and the G-tube was set in place. The external markings were 2 cm. The external bolster was applied. Clamp was applied. G-tube was cut to length, and a Y adapter was applied. IMPRESSION: Status post percutaneous endoscopic gastrostomy tube placement. RECOMMENDATIONS: When awake and alert without abdominal pain and normal BS, may start tube feeds in 4 hours, as per Dietary/Nutrition recommendations for calorie and free water requirements. /[id number]/MODL MTDD
[2017-03-28 05:27] LABS: ANION GAP 6 mEq/L (8-16); CARBON DIOXIDE 37 mEq/l (22-31); CHLORIDE 93 mEq/L (97-110); CREATININE 0.6 mg/dL (0.6-1.0); GLOMERULAR FILTRATION RATE > 60; GLUCOSE 147 mg/dL (70-100); POTASSIUM 3.5 mEq/L (3.5-5.2); SODIUM 136 mEq/L (134-144)
[2017-03-28] MEDS: ACETAMINOPHEN 500 MG TAB PO SCH (06:01)
[2017-03-28] MEDS: LEVOTHYROXINE 50 MCG TAB PO SCH (06:02)
[2017-03-28] MEDS ORDERED: POTASSIUM CL 10 MEQ TAB PO ONE (07:54)
--- NOTE | 2017-03-28 08:39 | SOAPPROG ---
SOAP Progress Note Assessment/Plan: Assessment: s/p PEG placement. PEG placed without problem, Had no pain last night. Was tolerating TF with no residuals but at 4:30 AM today she started complaining of a lot of abdominal pain. TF were stopped. Abdomen is benign, soft with normal BS. Plan: 1. ? Incisional pain 2. Hold TF and will ask Radiology for a tube study to confirm placement. 03/28/17 08:36 Subjective: CC: Dysphagia c/o of abdominal pain @ 4:30 AM. Had been tolerating TF Objective: Vital Signs Temp Pulse Resp BP Pulse Ox 36.0 C 77 11 L 103/57 L 97 03/28/17 07:54 03/28/17 07:54 03/28/17 07:54 03/28/17 07:54 03/28/17 07:54 Microbiology 03/26/17 Unknown - Final Sputum, Expectorated Laboratory Results 03/27/17 04:28 03/28/17 04:50 03/27/17 03/28/17 03/29/17 05:59 05:59 05:59 Intake Total 1681 1000 Output Total 400 Balance 1681 600 PT 14.4 SEC (12.0-15.0) 03/18/17 12:02 INR 1.13 (0.83-1.16) 03/18/17 12:02 Generic Name Dose Route Start Last Admin Trade Name Freq PRN Reason Stop Dose Admin Acetaminophen 1,000 mg 03/18/17 22:00 03/28/17 06:01 Tylenol PO 09/14/17 21:59 Not Given Q8HRS [facility] Alteplase, Recombinant 2 mg 03/19/17 11:08 03/26/17 06:27 Cathflo Activase IVP 09/15/17 11:07 2 mg PRN PRN Administration Per PICC line policy Ascorbic Acid 500 mg 03/19/17 09:00 03/27/17 09:28 Vitamin C PO 09/15/17 08:59 Not Given DAILY [facility] Bisacodyl 10 mg 03/18/17 16:48 Dulcolax Rectal NM 09/14/17 16:47 DAILY PRN Constipation Protocol Cholecalciferol 2,000 units 03/19/17 09:00 03/27/17 09:28 Vitamin D PO 09/15/17 08:59 Not Given DAILY [facility] Diazepam 2 - 5 mg 03/18/17 23:58 03/22/17 21:08 Valium Injection IVP 09/14/17 23:57 5 mg Q6 PRN Administration muscle spasms Diphenhydramine HCl 25 - 50 mg 03/18/17 16:48 Benadryl PO 09/14/17 16:47 Q6HRS PRN Itching Diphenhydramine HCl 25 - 50 mg 03/18/17 16:48 Benadryl Injection IVP 09/14/17 16:47 Q6HRS PRN Itching Duloxetine HCl 60 mg 03/19/17 09:00 03/27/17 09:28 Cymbalta PO 09/15/17 08:59 Not Given DAILY [facility] Enoxaparin Sodium 40 mg 03/20/17 09:00 03/26/17 11:09 Lovenox SC 09/16/17 08:59 40 mg DAILY [facility] Administration Gabapentin 600 mg 03/18/17 21:00 03/27/17 22:20 Neurontin PO 09/14/17 20:59 Not Given HS [facility] Famotidine/Sodium Chloride 50 mls @ 200 mls/hr 03/24/17 21:00 03/27/17 23:10 Pepcid 20 Mg (Premix) IV 09/20/17 20:59 50 mls Q12 [facility] Administration Ertapenem 1 gm/ Sodium 100 mls @ 200 mls/hr 03/25/17 21:00 03/27/17 22:28 Chloride IV 04/24/17 20:59 100 mls DAILY@2100 [facility] Administration Protocol Potassium Chloride/Dextrose/Sod Cl 1,000 mls @ 100 mls/hr 03/25/17 23:15 20:29 D5w 1/2 Ns W/ 20 Kcl/L IV 09/21/17 23:14 1,000 mls CONT [facility] Administration Lactulose 20 gm 03/18/17 16:48 03/23/17 12:27 Cephulac PO 09/14/17 16:47 10 gm TID PRN Administration Constipation Protocol Levothyroxine Sodium 50 mcg 03/19/17 06:00 03/28/17 06:02 Synthroid PO 09/15/17 05:59 Not Given DAILY06 [facility] Magnesium Hydroxide 30 ml 03/18/17 16:48 Milk Of Magnesia PO 09/14/17 16:47 DAILY PRN Constipation Protocol Methocarbamol 750 mg 03/18/17 16:59 03/20/17 15:24 Robaxin PO 09/14/17 16:58 750 mg QID PRN Administration Spasms Morphine Sulfate 2 - 4 mg 03/27/17 10:07 03/28/17 01:14 Morphine IVP 04/06/17 10:06 4 mg Q1HR PRN Administration Pain, Breakthrough Ondansetron HCl 4 mg 03/18/17 16:48 03/19/17 21:11 Zofran IVP 09/14/17 16:47 4 mg Q4HRS PRN Administration Nausea/Vomiting, Can't Take PO Ondansetron HCl 4 - 8 mg 03/18/17 16:48 Zofran Odt PO 09/14/17 16:47 Q6HRS PRN Nausea/Vomiting, Use 1st Oxycodone HCl 5 - 10 mg 03/27/17 21:36 03/27/17 22:13 Oxycodone Ir PO 04/06/17 21:35 10 mg Q6 PRN Administration Pain, Severe Able to Take PO Polyethylene Glycol 17 gm 03/18/17 22:00 03/27/17 22:20 Miralax PO 09/14/17 21:59 Not Given TID [facility] Potassium Chloride 1 dose 03/25/17 23:03 Protocol Potassium MISC 09/21/17 23:02 AD PRN Pt on Electrolyte Protocol Protocol Senna/Docusate Sodium 1 - 2 tab 03/18/17 21:00 03/27/17 22:20 Senokot-S PO 09/14/17 20:59 Not Given BID [facility] Protocol Discontinued Medications Generic Name Dose Route Start Last Admin Trade Name Freq PRN Reason Stop Dose Admin Acetaminophen 500 mg 03/18/17 16:47 Tylenol PO 03/18/17 17:47 Q6HRS PRN PACU, Pain Mild Hydrocodone Bitart/Acetaminophen 1 - 2 tab 03/18/17 16:47 [place] 5/325 PO 03/18/17 17:47 Q4HRS PRN PACU, Pain Moderate Albuterol 3 ml 03/18/17 16:47 Proventil Neb IH 03/18/17 17:47 Q10M PRN PACU, Wheezing Bacitracin Confirm 03/18/17 06:34 Bacitracin Syringe Administered 03/18/17 06:35 Dose 200,000 units IRR .STK-MED ONE Bacitracin Confirm 03/18/17 08:58 Bacitracin Syringe Administered 03/18/17 08:59 Dose 200,000 units IRR .STK-MED ONE Bupivacaine HCl Confirm 03/18/17 06:34 Sensorcaine 0.25% Sdv Administered 03/18/17 06:35 Dose 30 ml .ROUTE .STK-MED ONE Bupivacaine HCl/Epinephrine Bitart Confirm 03/18/17 06:34 Bupivacaine/Epi Administered 03/18/17 06:35 Dose 60 ml .ROUTE .STK-MED ONE Cefazolin Sodium Confirm 03/18/17 11:46 Ancef Administered 03/18/17 11:47 Dose 1 gm .ROUTE .STK-MED ONE Cefazolin Sodium Confirm 03/18/17 11:46 Ancef Administered 03/18/17 11:47 Dose 1 gm .ROUTE .STK-MED ONE Chlorhexidine Gluconate 1 btl 03/18/17 06:00 03/18/17 16:12 Hibiclens TP 03/18/17 06:01 Not Given ONCALL ONE Dexamethasone 10 mg 03/18/17 06:00 03/18/17 06:27 Decadron Injection IVP 03/18/17 06:01 10 mg ONCALL ONE Administration Dexamethasone Confirm 03/18/17 07:09 Decadron Injection Administered 03/18/17 07:10 Dose 4 mg .ROUTE .STK-MED ONE Dexamethasone 4 mg 03/18/17 16:47 Decadron Injection IVP 03/18/17 17:47 ONCE PRN PACU, Nausea/Vomiting Diazepam Confirm 03/19/17 00:07 Valium Injection Administered 03/19/17 00:08 Dose 10 mg .ROUTE .STK-MED ONE Ephedrine Sulfate Confirm 03/18/17 11:05 Ephedrine Sulfate Administered 03/18/17 11:06 Dose 20 mg .ROUTE .STK-MED ONE Famotidine 20 mg 03/18/17 21:00 03/24/17 10:17 Pepcid PO 09/14/17 20:59 Not Given BID [facility] Fentanyl Confirm 03/18/17 07:09 Sublimaze Administered 03/18/17 07:10 Dose 100 mcg .ROUTE .STK-MED ONE Fentanyl 25 - 50 mcg 03/18/17 16:47 03/18/17 16:58 Sublimaze IVP 03/18/17 17:47 50 mcg Q5M PRN Administration PACU, Pain Severe Fentanyl Confirm 03/18/17 16:57 Sublimaze Administered 03/18/17 16:58 Dose 100 mcg .ROUTE .STK-MED ONE Hydromorphone HCl Confirm 03/18/17 07:09 Dilaudid Administered 03/18/17 07:10 Dose 2 mg .ROUTE .STK-MED ONE Hydromorphone HCl 0.2 - 0.4 mg 03/18/17 16:47 Dilaudid IVP 03/18/17 17:47 Q10M PRN PACU, Pain Severe (Unable PO) Lactated Ringer's 1,000 mls @ 0 mls/hr 03/18/17 06:07 03/18/17 06:28 Lr IV 03/18/17 06:08 1,000 mls ONCE ONE Administration KVO Cefazolin Sodium/Dextrose 100 mls @ 200 mls/hr 03/18/17 07:00 03/18/17 16:11 Ancef 2 Gm (Premix) IV 03/18/17 07:29 Not Given ONCALL ONE Tranexamic Acid 1,000 mg/ 100 mls @ 5 mls/hr 03/18/17 12:00 03/18/17 16:12 Sodium Chloride IV 03/19/17 07:59 Not Given ONCALL ONE Dexmedetomidine HCl 400 mcg/ 104 mls @ 0 mls/hr 03/18/17 16:00 Sodium Chloride IV 09/14/17 15:59 CONT [facility] Protocol Per Protocol Dexmedetomidine HCl 400 mcg/ 104 mls @ 0 mls/hr 03/18/17 16:00 03/18/17 18:02 Sodium Chloride IV 03/18/17 16:01 104 mls ONCE ONE Administration Protocol Per Protocol Cefazolin Sodium/Dextrose 100 mls @ 200 mls/hr 03/18/17 20:00 03/19/17 04:55 Ancef 2 Gm (Premix) IV 03/19/17 04:29 100 mls Q8H [facility] Administration Protocol Sodium Chloride 1,000 mls @ 100 mls/hr 03/18/17 17:00 03/24/17 23:29 Ns IV 09/14/17 16:59 1,000 mls CONT [facility] Administration Dexmedetomidine HCl 400 mcg/ 104 mls @ 0 mls/hr 03/18/17 17:30 03/18/17 23:31 Sodium Chloride IV 09/14/17 17:29 104 mls CONT [facility] Administration Protocol Titrate Sodium Chloride 500 mls @ 0 mls/hr 03/18/17 19:00 03/18/17 20:29 Ns IV 03/18/17 19:01 500 mls ONCE ONE Administration Wide Open Sodium Chloride 500 mls @ 0 mls/hr 03/19/17 08:00 03/19/17 08:00 Ns IV 03/19/17 08:01 500 mls ONCE ONE Administration Wide Open Norepinephrine 4 mg/ Dextrose 500 mls @ 0 mls/hr 03/19/17 11:30 IV 09/15/17 11:29 CONT [facility] Protocol Titrate Norepinephrine/Sodium Chloride 500 mls @ 0 mls/hr 03/19/17 17:30 03/20/17 05: 38 Norepinephrine 8 Mcg/Ml (Premix) IV 09/15/17 17:29 500 mls CONT [facility] Administration Protocol Per Protocol Albumin Human 100 mls @ 0 mls/hr 03/20/17 11:09 03/20/17 13:04 Flexbumin 25 % (Premix) IV 03/20/17 11:10 Not Given ONCE ONE As Directed Dextrose/Sodium Chloride 1,000 mls @ 75 mls/hr 03/25/17 07:00 03/25/17 07:34 D5w 1/2 Ns IV 09/21/17 06:59 1,000 mls CONT [facility] Administration Vancomycin HCl 750 mg/ 150 mls @ 150 mls/hr 03/25/17 13:00 03/26/17 09:06 Dextrose IV 03/25/17 13:59 Not Given ONCALL ONE Vancomycin HCl 750 mg/ 150 mls @ 150 mls/hr 03/26/17 07:00 03/26/17 09:19 Dextrose IV 03/26/17 07:59 Not Given ONCALL ONE Potassium Chloride 100 mls @ 100 mls/hr 03/25/17 23:15 03/26/17 01:19 Potassium Cl 10 Meq (Premix) IV 03/26/17 01:14 100 mls Q1H [facility] Administration Potassium Chloride 50 mls @ 25 mls/hr 03/26/17 05:59 03/26/17 08:58 Potassium Cl 20 Meq (Premix) IV 03/26/17 09:58 50 mls Q2H [facility] Administration Potassium Chloride/Sodium Chloride 1,000 mls @ 100 mls/hr 03/26/17 08:30 Ns W/ 20 Kcl/L IV 09/22/17 08:29 CONT K[facility] Vancomycin HCl 750 mg/ 150 mls @ 150 mls/hr 03/27/17 09:00 03/27/17 12:39 Dextrose IV 03/27/17 09:59 150 mls ONCALL ONE Administration Potassium Chloride 100 mls @ 100 mls/hr 03/26/17 10:30 03/26/17 14:43 Potassium Cl 10 Meq (Premix) IV 03/26/17 12:29 Not Given Q1H [facility] Potassium Chloride 50 mls @ 25 mls/hr 03/26/17 20:07 03/26/17 22:03 Potassium Cl 20 Meq (Premix) IV 03/26/17 22:06 50 mls ONCE ONE Administration Potassium Chloride 50 mls @ 50 mls/hr 03/27/17 08:42 03/27/17 15:40 Potassium Cl 10 Meq (Premix) IV 03/27/17 11:41 50 mls Q1H [facility] Administration Lactated Ringer's 1,000 mls @ 0 mls/hr 03/27/17 12:23 03/27/17 14:17 Lr IV 03/27/17 12:24 Not Given ONCE ONE Per Protocol Ketamine HCl Confirm 03/27/17 12:55 Ketamine Administered 03/27/17 12:56 Dose 100 mg .ROUTE .STK-MED ONE Lidocaine HCl 0.2 ml 03/18/17 06:07 Xylocaine-Mpf 1% Sdv ID 03/18/17 23:59 ONCE PRN IV Start Lidocaine HCl Confirm 03/18/17 07:09 Lidocaine Hcl 2% Administered 03/18/17 07:10 Dose 100 mg .ROUTE .STK-MED ONE Meperidine HCl 12.5 - 25 mg 03/18/17 16:47 Demerol 25 Mg/Ml Syringe IVP 03/18/17 17:47 ONCE PRN PACU,shivering/rigors Midazolam HCl 2 mg 03/18/17 07:07 03/18/17 16:12 Versed IVP 03/18/17 07:08 Not Given ONCE ONE Midazolam HCl Confirm 03/18/17 07:08 Versed Administered 03/18/17 07:09 Dose 2 mg .ROUTE .STK-MED ONE Midazolam HCl 2 mg 03/18/17 06:53 03/18/17 16:12 Versed IVP 03/18/17 06:54 Not Given ONCE ONE Morphine Sulfate 2 - 4 mg 03/18/17 16:48 03/27/17 09:23 Morphine IVP 03/28/17 16:47 2 mg Q1HR PRN Administration Pain, Breakthrough Morphine Sulfate 0 mg 03/18/17 17:04 03/19/17 21:55 Morphine Heel Edge In[employer] Machine IV 03/28/17 17:03 30 mg PRN PRN Administration Pain, Severe Unable to Take PO Protocol Morphine Sulfate 15 mg 03/18/17 21:00 03/21/17 08:02 Ms Contin/Oramorph PO 03/28/17 20:59 15 mg BID [facility] Administration Naloxone HCl 0.1 mg 03/18/17 16:47 Narcan IVP 03/18/17 17:47 Q2M PRN PACU Resp Rate <10/min Naloxone HCl 0.4 mg 03/18/17 17:13 Narcan IVP 09/14/17 17:12 PRN PRN Respiratory depression Protocol Naloxone HCl 0.1 mg 03/27/17 13:10 Narcan IVP 03/27/17 14:10 Q2M PRN PACU Resp Rate <10/min Ondansetron HCl Confirm 03/18/17 07:09 Zofran Administered 03/18/17 07:10 Dose 4 mg .ROUTE .STK-MED ONE Ondansetron HCl 2 - 4 mg 03/18/17 16:47 Zofran IVP 03/18/17 17:47 Q10M PRN PACU, Nausea/Vomiting Ondansetron HCl 2 - 4 mg 03/27/17 13:10 Zofran IVP 03/27/17 14:10 Q10M PRN PACU, Nausea/Vomiting Oxycodone HCl 10 mg 03/18/17 06:00 03/18/17 06:17 Oxycontin PO 03/18/17 06:01 10 mg ONCALL ONE Administration Oxycodone HCl 5 - 10 mg 03/18/17 16:48 03/24/17 01:56 Oxycodone Ir PO 03/28/17 16:47 10 mg Q4HRS PRN Administration Pain, Severe Able to Take PO Oxycodone/Acetaminophen 1 - 2 tab 03/18/17 16:47 Percocet 5/325 PO 03/18/17 17:47 Q4HRS PRN PACU, Pain Severe Phenylephrine HCl Confirm 03/18/17 07:32 Neosynephrine Administered 03/18/17 07:33 Dose 1,000 mcg .ROUTE .STK-MED ONE Phenylephrine HCl Confirm 03/18/17 12:22 Neosynephrine Administered 03/18/17 12:23 Dose 1,000 mcg .ROUTE .STK-MED ONE Potassium Chloride 40 meq 03/25/17 23:01 03/25/17 23:32 Klor-Con PO 03/25/17 23:02 Not Given ONCE ONE Potassium Chloride 10 - 40 meq 03/28/17 07:54 Klor-Con PO 03/28/17 07:55 ONCE ONE Protocol Promethazine HCl 6.25 - 12.5 mg 03/18/17 16:47 Phenergan IVP 03/18/17 17:47 Q5M PRN PACUNausea/Vomiting, Unable PO Propofol Confirm 03/18/17 07:10 Diprivan Administered 03/18/17 07:11 Dose 200 mg .ROUTE .STK-MED ONE Propofol Confirm 03/18/17 07:10 Diprivan 10 Mg/Ml (Premix) Administered 03/18/17 07:11 Dose 500 mg IV .STK-MED ONE Propofol Confirm 03/18/17 13:14 Diprivan 10 Mg/Ml (Premix) Administered 03/18/17 13:15 Dose 500 mg IV .STK-MED ONE Propofol Confirm 03/27/17 11:32 Diprivan 10 Mg/Ml (Premix) Administered 03/27/17 11:33 Dose 500 mg IV .STK-MED ONE Remifentanil Confirm 03/18/17 07:10 Ultiva Administered 03/18/17 07:11 Dose 1 mg .ROUTE .STK-MED ONE Remifentanil Confirm 03/18/17 13:14 Ultiva Administered 03/18/17 13:15 Dose 1 mg .ROUTE .STK-MED ONE Rocuronium Bode Confirm 03/18/17 07:09 Zemuron Administered 03/18/17 07:10 Dose 50 mg .ROUTE .STK-MED ONE Sodium Citrate Confirm 03/18/17 06:34 Acd-A Administered 03/18/17 06:35 Dose 1,000 ml .ROUTE .STK-MED ONE Sodium Citrate Confirm 03/18/17 12:14 Acd-A Administered 03/18/17 12:15 Dose 500 ml .ROUTE .STK-MED ONE Sodium Citrate Confirm 03/18/17 14:06 Acd-A Administered 03/18/17 14:07 Dose 500 ml .ROUTE .STK-MED ONE Succinylcholine Chloride Confirm 03/18/17 07:14 Quelicin Administered 03/18/17 07:15 Dose 200 mg IVP .STK-MED ONE Thrombin Confirm 03/18/17 06:34 Thrombin-Jmi Administered 03/18/17 06:35 Dose 5,000 unit TP .STK-MED ONE Thrombin Confirm 03/18/17 06:46 Thrombin-Jmi Administered 03/18/17 06:47 Dose 20,000 unit TP .STK-MED ONE Thrombin Confirm 03/18/17 10:34 Thrombin-Jmi Administered 03/18/17 10:35 Dose 20,000 unit TP .STK-MED ONE Thrombin Confirm 03/18/17 11:36 Thrombin-Jmi Administered 03/18/17 11:37 Dose 20,000 unit TP .STK-MED ONE Thrombin Confirm 03/18/17 12:05 Thrombin-Jmi Administered 03/18/17 12:06 Dose 20,000 unit TP .STK-MED ONE Thrombin Confirm 03/18/17 13:23 Thrombin-Jmi Administered 03/18/17 13:24 Dose 20,000 unit TP .STK-MED ONE Vancomycin HCl 1 each 03/26/17 07:00 Vancomycin Pharmacy To Dose, 10-15 [place] [facility] [place] 06:59 AD [facility] Protocol Physical Exam - Physical Exam General Appearance: mild distress Cardiac/Chest: regular rate, rhythm Abdomen: normal bowel sounds, soft, other (tender at G -tube site. No erythema, sweeling or induration) ICD10 Worksheet Patient Problems: Problems Problem Status Onset Anemia due to blood loss, acute Acute Chronic pain Acute Pneumonia Acute S/P lumbar spinal fusion Acute
--- NOTE | 2017-03-28 09:26 | HOSPPROG ---
Hospitalist Progress Note Assessment/Plan: Acute hypoxemic respiratory failure secondary to aspiration pneumonia (hospital acquired) - Lots of sputum production, no more hemoptysis. Sputum Cx only growing nitin. BCx's ngtd. On 3 LPM O2. -Cont Invanz -Follow culture data Dysphagia with silent aspiration seen on VFSS - NPO. PEG placed yesterday per GI and tube feeds started. Developed abdominal pain this and and TF stopped. IR did fluoro study and PEG in correct position. Significant tenderness on exam , CT done to r/o hematoma or other complication, neg. -resume tube feeds Hypokalemia - improving with aggressive replacement. -cont to follow closely Elevated troponin - This occurred in the setting of chest discomfort, though that may be explained by PNA with b/l infiltrates. This likely represents a troponin leak in setting of infection / aspiration. Trop now trending down. She is chest pain free. EKG abnormal with Q's in inferior leads. No h/o NH. Had neg stress test 4 yrs ago. No obvious WMA on echo though poor study. -likely warrants coronary risk stratification prior to dc Acute blood loss anemia - s/p 4 u prb'cs, 2 u FFP, 1 u plts. Hgb stable. Full code Dispo - cont inpt Subjective: Pt c/o abdominal pain. Asking for shot of pain medication. Cough seems better, less sputum production. No fevers. No CP or SOB. Objective: Vital Signs Temp Pulse Resp BP Pulse Ox 36.0 C 77 11 L 103/57 L 97 03/28/17 07:54 03/28/17 07:54 03/28/17 07:54 03/28/17 07:54 03/28/17 07:54 Microbiology 03/26/17 Unknown - Final Sputum, Expectorated Laboratory Results 03/27/17 04:28 03/28/17 04:50 03/27/17 03/28/17 03/29/17 05:59 05:59 05:59 Intake Total 1681 1000 Output Total 400 Balance 1681 600 PT 14.4 SEC (12.0-15.0) 03/18/17 12:02 INR 1.13 (0.83-1.16) 03/18/17 12:02 - Physical Exam Constitutional: no apparent distress Eyes: PERRL Ears, Nose, Mouth, Throat: moist mucous membranes Cardiovascular: regular rate and rhythym Respiratory: no respiratory distress Gastrointestinal: normoactive bowel sounds, other (soft, nd, +bunny-umbilical tenderness with voluntary guarding. she pushes my hand away from light palpation. +BS) Skin: warm Musculoskeletal: full muscle strength Neurologic: AAOx3 Psychiatric: interacting appropriately ICD10 Worksheet Patient Problems: Problems Problem Status Onset Anemia due to blood loss, acute Acute Chronic pain Acute Pneumonia Acute S/P lumbar spinal fusion Acute
[2017-03-28] MEDS ORDERED: LACTULOSE 20 GM/30 ML UDCUP TUBE PRN (09:46)
[2017-03-28] MEDS ORDERED: MAGNESIUM HYDROXIDE 30 ML UDCUP TUBE PRN (09:49)
--- NOTE | 2017-03-28 10:10 | NEUSURGPN ---
Assessment/Plan: Assessment: POD #8 severe dysphagia s/p C3-T7 instrumentation and T3 wedge with removal of posterior cervical and upper thoracic hardware generalized weakness 2/2 poor PO intake, no focal weakness. Neuro stable PEG yesterday with GI Medicine assisting with Mgmt of pulmonary issues and bloody sputum. Plan: no collar needed at this time Patient is complaingin of GI pain this morning. Discussed with nurse and tube feeds where stopped earlier today and GI to see Pulmo issues per medicine. Pt now in Invanz and continuous 02. Discussed with Dr. Barber Rehab/SNF placement once cleared from multiple medical issues Subjective: Abdominal pain. Denies any new neck pain or arm pain, numbness tingling or weakness. Objective: NAD A&OX3 MAEx4. Incision c/d/i Catheter Insertion Date: 03/18/17 - Physician Discussed Patient with DrRadha: Jeanine Neurosurgery Physical Exam - Vitals, I&O, Labs I and O 03/27/17 03/28/17 03/29/17 05:59 05:59 05:59 Intake Total 1681 1000 Output Total 400 Balance 1681 600 Weight 48.988 kg 48.988 kg Intake: Oral (ml) 0 IV Intake (ml) 1000 IV Infused (ml) 1681 D5W 1/2 NS W/ 20 KCl/L 1, 1331 000 ml @ 100 mls/hr IV CONT [facility] Rx#:[id number] Ertapenem 1 gm In Ns 100 100 ml @ 200 mls/hr IV DAILY@ 2100 [facility] Rx#:[id number] Famotidine 20 mg/NaCl 50 100 ml @ 200 mls/hr IV Q12 [facility] Rx#:[id number] POTASSIUM Cl (KCl) 100 ml 100 @ 100 mls/hr IV Q1H [facility] Rx#:[id number] POTASSIUM Cl (KCl) 50 ml 50 @ 25 mls/hr IV ONCE ONE Rx#:[id number] Output: Urine (ml) 400 Bedside Commode 400 Estimated Blood Loss (ml) 0 PEG Tube Output (ml) 0 PEG 0 Other: Number of Voids Incontinence 1 1 Toilet 1 Number of Stools Bedside Commode 1 Microbiology 03/26/17 Unknown - Final Sputum, Expectorated Vital Signs Temp Pulse Resp BP Pulse Ox 36.0 C 77 11 L 103/57 L 97 03/28/17 07:54 03/28/17 07:54 03/28/17 07:54 03/28/17 07:54 03/28/17 07:54 Laboratory Results 03/27/17 04:28 03/28/17 04:50 ICD10 Worksheet Patient Problems: Problems Problem Status Onset Anemia due to blood loss, acute Acute Chronic pain Acute Pneumonia Acute S/P lumbar spinal fusion Acute
[2017-03-28] MEDS: FAMOTIDINE 20 MG/NACL 50 ML IV SCH ×2 (11:11→22:22)
[2017-03-28] MEDS: D5W NS W/ 20 KCl/L 1,000 ML IV SCH ×2 (11:11→21:11)
[2017-03-28] MEDS ORDERED: POTASSIUM CL 20 MEQ/15 ML UDCUP TUBE ONE ×2 (11:30→15:45)
[2017-03-28] MEDS ORDERED: IOPAMIDOL (ISOVUE-300) 100 ML BTL ONE (12:30)
[2017-03-28] MEDS: DIAZEPAM 10 MG/2 ML SYR IVP PRN ×2 (14:36→22:24)
[2017-03-28] MEDS: CHOLECALCIFEROL VIT D3 1,000 UNITS TAB PO SCH (15:11)
[2017-03-28] MEDS: ASCORBIC ACID 500 MG TAB PO SCH (15:11)
[2017-03-28] MEDS: DULoxetine 30 MG CAP PO SCH (15:11)
[2017-03-28] MEDS: SENNOSIDES/DOCUSATE SODIUM TAB PO SCH (15:12)
[2017-03-28] MEDS: POLYETHYLENE GLYCOL 3350 17 GM PKT PO SCH (15:12)
[2017-03-28] MEDS: POLYETHYLENE GLYCOL 3350 17 GM PKT TUBE SCH ×2 (16:13→22:23)
[2017-03-28] MEDS: ACETAMINOPHEN 500 MG TAB TUBE SCH ×2 (16:13→22:23)
[2017-03-28] MEDS: oxyCODONE ORAL SOLUTION 10 MG/0.5 ML UDSYR TUBE PRN ×2 (16:14→22:24)
[2017-03-28] MEDS: METHOCARBAMOL 750 MG TAB TUBE PRN (21:02)
[2017-03-28 21:53] LABS: POTASSIUM 4.9 mEq/L (3.5-5.2)
[2017-03-28] MEDS: SENNOSIDES 17.6 MG/10 ML UDL - IF LIQUID ORDERED TUBE SCH (22:23)
[2017-03-28] MEDS: ERTAPENEM 1 GM in NS 100 ML IV SCH (22:24)
[2017-03-28] MEDS: GABAPENTIN 250 MG/5 ML 30 ML BOTTLE TUBE SCH (22:25)
[2017-03-29] MEDS: LEVOTHYROXINE 50 MCG TAB TUBE SCH (05:38)
[2017-03-29] MEDS: ACETAMINOPHEN 500 MG TAB TUBE SCH ×2 (05:38→13:47)
[2017-03-29] MEDS: oxyCODONE ORAL SOLUTION 10 MG/0.5 ML UDSYR TUBE PRN (05:40)
[2017-03-29] MEDS: D5W NS W/ 20 KCl/L 1,000 ML IV SCH ×3 (06:10→22:35)
[2017-03-29 07:19] LABS: POTASSIUM 4.3 mEq/L (3.5-5.2)
[2017-03-29] MEDS: FAMOTIDINE 20 MG/NACL 50 ML IV SCH (08:22)
[2017-03-29] MEDS: DULoxetine 30 MG CAP TUBE SCH (08:33)
[2017-03-29] MEDS: SENNOSIDES 17.6 MG/10 ML UDL - IF LIQUID ORDERED TUBE SCH (08:39)
[2017-03-29] MEDS: ASCORBIC ACID 500 MG TAB TUBE SCH (08:40)
[2017-03-29] MEDS: CHOLECALCIFEROL VIT D3 1,000 UNITS TAB TUBE SCH (08:41)
[2017-03-29] MEDS: POLYETHYLENE GLYCOL 3350 17 GM PKT TUBE SCH ×2 (08:44→17:42)
[2017-03-29 10:17] LABS: ABSOLUTE IMMATURE GRANULOCYTES 0.11 10^3/uL (0.00-0.10); ADD DIFF? NO; ADD MORPH? NO; ADD SCAN? NO; ATYPICAL LYMPHOCYTE FLAG 0 (0-99); FRAGMENT RBC FLAG 0 (0-99); HEMATOCRIT 33.3 % (38.0-47.0); HEMOGLOBIN 10.1 g/dL (12.6-16.3); LEFT SHIFT FLG 10 (0-99); LIPEMIA HEMOLYSIS FLAG 80 (0-99); MEAN CELL HEMOGLOBIN 28.2 pg (27.9-34.1); MEAN CELL HEMOGLOBIN CONCENTR. 30.3 g/dL (32.4-36.7); MEAN PLATELET VOLUME 8.9 fL (8.7-11.7); PLATELET CLUMPS FLAG 10 (0-99); PLATELET COUNT 216 10^3/uL (150-400); RED BLOOD CELL COUNT 3.58 10^6/uL (4.18-5.33); RED CELL DISTRIBUTION WIDTH 15.6 % (11.5-15.2)
[2017-03-29] MEDS: IPRATROPIUM/ALBUTEROL 3 ML DEYVIAL IH SCH ×3 (10:29→23:26)
[2017-03-29 10:52] LABS: ALANINE AMINOTRANSFERASE 24 IU/L (9-52); ALBUMIN 2.2 g/dL (3.5-5.0); ALKALINE PHOSPHATASE 83 IU/L (38-126); ANION GAP 5 mEq/L (8-16); ASPARTATE AMINOTRANSFERASE 20 IU/L (14-46); BILIRUBIN,TOTAL 0.5 mg/dL (0.1-1.4); CALCIUM 8.3 mg/dL (8.5-10.4); CARBON DIOXIDE 33 mEq/l (22-31); CHLORIDE 98 mEq/L (97-110); CREATININE 0.5 mg/dL (0.6-1.0); GLOMERULAR FILTRATION RATE > 60; GLUCOSE 174 mg/dL (70-100); POTASSIUM 4.2 mEq/L (3.5-5.2); SODIUM 136 mEq/L (134-144); TOTAL PROTEIN 4.5 g/dL (6.3-8.2)
--- NOTE | 2017-03-29 13:52 | NEUSURGPN ---
Date of Surgery: 03/18/17 Post Op Day: 11 Assessment/Plan: Assessment/Plan: Assessment: POD #11 severe dysphagia s/p C3-T7 instrumentation and T3 wedge with removal of posterior cervical and upper thoracic hardware generalized weakness 2/2 poor PO intake, no focal weakness. PEG 03/27 with GI Plan: no collar needed at this time Medicine assisting with Mgmt of pulmonary issues and bloody sputum. Pt now in Invanz and continuous 02. Also continued work up for possible explanation of her decreased LOC today, cx and labs pending, afebrile. Discussed with Dr. Barber Rehab/SNF placement once cleared from multiple medical issues Subjective: pt is difficult to rouse, but appropriate and following some commands. Overall LOC appears diminished from prior notes Objective: tired, borderline lethargic NAD, no facial droop PEARLA MAEx4, generalized weakness +LT Incision cdi Catheter Insertion Date: 03/18/17 - Physician Discussed Patient with : Jeanine Neurosurgery Physical Exam - Vitals, I&O, Labs I and O 03/28/17 03/29/17 03/30/17 05:59 05:59 05:59 Intake Total 1000 1542 Output Total 400 Balance 600 1542 Weight 48.988 kg Intake: Oral (ml) 0 0 IV Intake (ml) 1000 IV Infused (ml) 1062 D5W 1/2 NS W/ 20 KCl/L 1, 912 000 ml @ 100 mls/hr IV CONT [facility] Rx#:[id number] Ertapenem 1 gm In Ns 100 100 ml @ 200 mls/hr IV DAILY@ 2100 [facility] Rx#:[id number] Famotidine 20 mg/NaCl 50 50 ml @ 200 mls/hr IV Q12 [facility] Rx#:[id number] Tube Feeding (ml) 240 Tube Flush (ml) 240 Output: Urine (ml) 400 Bedside Commode 400 Estimated Blood Loss (ml) 0 PEG Tube Output (ml) 0 PEG 0 Other: Number of Voids Incontinence 1 1 Toilet 1 Number of Stools Bedside Commode 1 Microbiology 03/26/17 Unknown - Final Sputum, Expectorated Sputum Culture - Final Liat Albicans Vital Signs Temp Pulse Resp BP Pulse Ox 37.2 C 88 14 104/58 L 97 03/29/17 11:46 03/29/17 11:46 03/29/17 11:46 03/29/17 11:46 03/29/17 11:46 Laboratory Results 03/29/17 09:55 03/29/17 09:55 ICD10 Worksheet Patient Problems: Problems Problem Status Onset Anemia due to blood loss, acute Acute Chronic pain Acute Pneumonia Acute S/P lumbar spinal fusion Acute
--- NOTE | 2017-03-29 14:01 | HOSPPROG ---
Hospitalist Progress Note Assessment/Plan: * Severe kyphosis s/p decompression/hardware removal * Aspiration PNA -IV Invanz * Dysphagia s/p PEG * Acute respiratory failure -poor secretion mgmt -nebs, mucinex -check repeat CXR * Metabolic encephalopathy -mental status poor today, seems to be acute change -check head CT * Troponin elevation with chest pain -stress test prior to discharge * Shock s/p pressors * RA Subjective: Quite unresonposive. She cough and then screamed in pain. When asked what hurts, she said her "head" Abdominal pain from yesterday seems to have dissipated Objective: Vital Signs Temp Pulse Resp BP Pulse Ox 37.2 C 88 14 104/58 L 97 03/29/17 11:46 03/29/17 11:46 03/29/17 11:46 03/29/17 11:46 03/29/17 11:46 Microbiology 03/26/17 Unknown - Final Sputum, Expectorated Sputum Culture - Final Liat [facility] Laboratory Results 03/29/17 09:55 03/29/17 09:55 03/28/17 03/29/17 03/30/17 05:59 05:59 05:59 Intake Total 1000 1542 Output Total 400 Balance 600 1542 PT 14.4 SEC (12.0-15.0) 03/18/17 12:02 INR 1.13 (0.83-1.16) 03/18/17 12:02 CXR viewed, my personal interpretation is - significant infiltrate - Physical Exam Constitutional: no apparent distress, appears nourished, not in pain Cardiovascular: regular rate and rhythym, no murmur, rub, or gallop Respiratory: reduced air movement, expiratory wheeze, respiratory distress (mild ), rhonchi Gastrointestinal: normoactive bowel sounds, soft, non-tender abdomen, no palpable masses Skin: no rashes or abrasions, no fluctuance, no induration Neurologic: No AAOx3 Psychiatric: encephalopathic, flat affect, poor insight, poor judgement, poor memory, other (arousable to deep stimulation but not conversant), No interacting appropriately ICD10 Worksheet Patient Problems: Problems Problem Status Onset Anemia due to blood loss, acute Acute Chronic pain Acute Pneumonia Acute S/P lumbar spinal fusion Acute
[2017-03-29] MEDS: guaiFENesin 200 MG/10 ML UDL TUBE SCH (17:42)
[2017-03-30] MEDS: ERTAPENEM 1 GM in NS 100 ML IV SCH ×3 (00:27→20:13)
[2017-03-30] MEDS: FAMOTIDINE 20 MG/NACL 50 ML IV SCH ×2 (00:29→10:42)
[2017-03-30] MEDS: METHOCARBAMOL 750 MG TAB TUBE PRN (00:30)
[2017-03-30] MEDS: ACETAMINOPHEN 500 MG TAB TUBE SCH ×2 (00:30→06:17)
[2017-03-30] MEDS: GABAPENTIN 250 MG/5 ML 30 ML BOTTLE TUBE SCH ×2 (00:30→20:11)
[2017-03-30] MEDS: guaiFENesin 200 MG/10 ML UDL TUBE SCH ×4 (00:39→20:46)
[2017-03-30] MEDS: POLYETHYLENE GLYCOL 3350 17 GM PKT TUBE SCH ×2 (00:39→11:00)
[2017-03-30] MEDS: SENNOSIDES 17.6 MG/10 ML UDL - IF LIQUID ORDERED TUBE SCH ×2 (00:39→11:00)
[2017-03-30 04:27] LABS: ABSOLUTE IMMATURE GRANULOCYTES 0.15 10^3/uL (0.00-0.10); ADD DIFF? NO; ADD MORPH? NO; ADD SCAN? NO; ATYPICAL LYMPHOCYTE FLAG 0 (0-99); FRAGMENT RBC FLAG 0 (0-99); HEMATOCRIT 35.6 % (38.0-47.0); HEMOGLOBIN 11.1 g/dL (12.6-16.3); LEFT SHIFT FLG 10 (0-99); LIPEMIA HEMOLYSIS FLAG 80 (0-99); MEAN CELL HEMOGLOBIN 28.4 pg (27.9-34.1); MEAN CELL HEMOGLOBIN CONCENTR. 31.2 g/dL (32.4-36.7); MEAN PLATELET VOLUME 8.9 fL (8.7-11.7); PLATELET CLUMPS FLAG 0 (0-99); PLATELET COUNT 241 10^3/uL (150-400); RED BLOOD CELL COUNT 3.91 10^6/uL (4.18-5.33); RED CELL DISTRIBUTION WIDTH 15.2 % (11.5-15.2)
[2017-03-30 05:00] LABS: ANION GAP 5 mEq/L (8-16); CALCIUM 8.7 mg/dL (8.5-10.4); CARBON DIOXIDE 33 mEq/l (22-31); CHLORIDE 100 mEq/L (97-110); CREATININE 0.5 mg/dL (0.6-1.0); GLOMERULAR FILTRATION RATE > 60; GLUCOSE 180 mg/dL (70-100); POTASSIUM 4.3 mEq/L (3.5-5.2); SODIUM 138 mEq/L (134-144)
[2017-03-30] MEDS: LEVOTHYROXINE 50 MCG TAB TUBE SCH (06:17)
[2017-03-30] MEDS: IPRATROPIUM/ALBUTEROL 3 ML DEYVIAL IH SCH ×4 (06:17→21:58)
--- NOTE | 2017-03-30 06:25 | NEUSURGPN ---
Date of Surgery: 03/18/17 Post Op Day: 12 Assessment/Plan: Assessment/Plan: Assessment: POD #12 severe dysphagia s/p C3-T7 instrumentation and T3 wedge with removal of posterior cervical and upper thoracic hardware generalized weakness 2/2 poor PO intake, no focal weakness. PEG 03/27 with GI Plan: no collar needed at this time Medicine assisting with Mgmt of pulmonary issues and bloody sputum. Pt now in Invanz and continuous 02. will follow work up of encephalopathy inthe setting of rising WBC. . Discussed with Dr. Barber Rehab/SNF placement once cleared from multiple medical issues Subjective: Still appears with some altered mental status, stable from yesterday. not complaining of pain at this time. Objective: tired, borderline lethargic NAD, no facial droop PEARLA MAEx4, generalized weakness +LT Incision cdi Catheter Insertion Date: 03/18/17 - Physician Discussed Patient with DrRadha: [facility] Neurosurgery Physical Exam - Vitals, I&O, Labs I and O 03/29/17 03/30/17 03/31/17 05:59 05:59 05:59 Intake Total 1542 Balance 1542 Intake: Oral (ml) 0 IV Infused (ml) 1062 D5W 1/2 NS W/ 20 KCl/L 1, 912 000 ml @ 100 mls/hr IV CONT KENDELL Rx#:[id number] Ertapenem 1 gm In Ns 100 100 ml @ 200 mls/hr IV DAILY@ 2100 KENDELL Rx#:[id number] Famotidine 20 mg/NaCl 50 50 ml @ 200 mls/hr IV Q12 KENDELL Rx#:[id number] Tube Feeding (ml) 240 Tube Flush (ml) 240 Other: Output Comment Bedside Commode a lot of stool Incontinence a lot of stool Number of Voids Bedside Commode 1 Incontinence 1 1 Number of Stools Bedside Commode 1 Incontinence 1 Toilet 1 Vital Signs Temp Pulse Resp BP Pulse Ox 36.3 C 89 24 H 125/76 H 97 03/30/17 04:00 03/30/17 04:00 03/30/17 04:00 03/30/17 04:00 03/30/17 04:00 Laboratory Results 03/30/17 04:15 03/30/17 04:15 ICD10 Worksheet Patient Problems: Problems Problem Status Onset Anemia due to blood loss, acute Acute Chronic pain Acute Pneumonia Acute S/P lumbar spinal fusion Acute
[2017-03-30] MEDS ORDERED: SENNOSIDES 17.6 MG/10 ML UDL TUBE PRN (09:18)
[2017-03-30] MEDS ORDERED: POLYETHYLENE GLYCOL 3350 17 GM PKT TUBE PRN (09:19)
[2017-03-30] MEDS: DULoxetine 30 MG CAP TUBE SCH (10:13)
[2017-03-30] MEDS: CHOLECALCIFEROL VIT D3 1,000 UNITS TAB TUBE SCH (10:13)
[2017-03-30] MEDS: ASCORBIC ACID 500 MG TAB TUBE SCH (10:13)
[2017-03-30 11:13] LABS: COLOR PALE YELLOW; LEUKOCYTE ESTERASE,URINE NEGATIVE (NEGATIVE); NITRITE,URINE NEGATIVE (NEGATIVE)
--- NOTE | 2017-03-30 13:17 | HOSPPROG ---
Hospitalist Progress Note Assessment/Plan: * Severe kyphosis s/p decompression/hardware removal * Aspiration PNA -IV Invanz * Dysphagia s/p PEG * Acute respiratory failure -poor secretion mgmt -nebs, mucinex * Metabolic encephalopathy -suspicion for narcotics/meds -offered MRI - declined -he would like to wait and see if she can improve with less drugs and more mobilization -neuro exam is non-focal - CVA less likely * Troponin elevation with chest pain -stress test prior to discharge * Shock s/p pressors * RA -due for IV infusion tomorrow - will hold Subjective: Still sedated, has been quite sedated for the last 24 hours Objective: Vital Signs Temp Pulse Resp BP Pulse Ox 36.4 C 74 20 119/76 98 03/30/17 07:50 03/30/17 11:59 03/30/17 11:59 03/30/17 11:59 03/30/17 11:59 Laboratory Results 03/30/17 04:15 03/30/17 04:15 03/29/17 03/30/17 03/31/17 05:59 05:59 05:59 Intake Total 1542 2848 Output Total 300 Balance 1542 2848 -300 PT 14.4 SEC (12.0-15.0) 03/18/17 12:02 INR 1.13 (0.83-1.16) 03/18/17 12:02 - Physical Exam Constitutional: no apparent distress, appears nourished, not in pain Cardiovascular: regular rate and rhythym, no murmur, rub, or gallop Respiratory: no respiratory distress, no rales or rhonchi, clear to auscultation Gastrointestinal: normoactive bowel sounds, soft, non-tender abdomen, no palpable masses Skin: no rashes or abrasions, no fluctuance, no induration Neurologic: AAOx3, CN II-XII Intact, No weakness, No numbness, No facial droop Psychiatric: encephalopathic, flat affect, poor insight, poor judgement, poor memory, other (sedated but arousable), No interacting appropriately ICD10 Worksheet Patient Problems: Problems Problem Status Onset Anemia due to blood loss, acute Acute Chronic pain Acute Pneumonia Acute S/P lumbar spinal fusion Acute
[2017-03-30] MEDS: ACETAMINOPHEN 500 MG TAB TUBE PRN (15:57)
[2017-03-31] MEDS: LEVOTHYROXINE 50 MCG TAB TUBE SCH (05:10)
[2017-03-31 05:16] LABS: % IMMATURE GRANULYOCYTES 1.3 % (0.0-1.1); ABSOLUTE IMMATURE GRANULOCYTES 0.25 10^3/uL (0.00-0.10); ADD DIFF? NO; ADD MORPH? NO; ADD SCAN? NO; ATYPICAL LYMPHOCYTE FLAG 10 (0-99); FRAGMENT RBC FLAG 0 (0-99); HEMATOCRIT 40.2 % (38.0-47.0); HEMOGLOBIN 12.9 g/dL (12.6-16.3); LEFT SHIFT FLG 10 (0-99); LIPEMIA HEMOLYSIS FLAG 80 (0-99); MEAN CELL HEMOGLOBIN 28.4 pg (27.9-34.1); MEAN CELL HEMOGLOBIN CONCENTR. 32.1 g/dL (32.4-36.7); MEAN CELL VOLUME 88.5 fL (81.5-99.8); PLATELET CLUMPS FLAG 10 (0-99); PLATELET COUNT 341 10^3/uL (150-400); RED BLOOD CELL COUNT 4.54 10^6/uL (4.18-5.33); RED CELL DISTRIBUTION WIDTH 15.9 % (11.5-15.2)
[2017-03-31] MEDS: IPRATROPIUM/ALBUTEROL 3 ML DEYVIAL IH SCH ×3 (05:17→16:32)
[2017-03-31 05:31] LABS: ANION GAP 7 mEq/L (8-16); CALCIUM 9.9 mg/dL (8.5-10.4); CARBON DIOXIDE 31 mEq/l (22-31); CHLORIDE 99 mEq/L (97-110); CREATININE 0.6 mg/dL (0.6-1.0); GLOMERULAR FILTRATION RATE > 60; GLUCOSE 179 mg/dL (70-100); POTASSIUM 4.9 mEq/L (3.5-5.2); SODIUM 137 mEq/L (134-144)
--- NOTE | 2017-03-31 08:06 | SOAPPROG ---
SOAP Progress Note Assessment/Plan: Assessment: 76 yo F POD #13 C3-T7 fusion with T3 wedge osteotomy Plan: neuro: stable, encephalopathy improving leukocytosis: progressive, nitin aspiration pneumonia, some pain in abdomen around PEG site, no erythema appreciate input from IM PT/OT scd/kaylyn/lovenox for DVT prophylaxis patient is likely to need inpatient rehab please call with neuro changes 03/21/17 07:26 03/31/17 08:02 Subjective: no neck pain, no arm pain. Objective: Vital Signs Temp Pulse Resp BP Pulse Ox 36.3 C 96 22 H 113/71 98 03/31/17 04:00 03/31/17 05:17 03/31/17 05:17 03/31/17 04:00 03/31/17 05:17 Microbiology 03/25/17 22:40 Blood Culture - Final Blood 03/25/17 21:35 Blood Culture - Final Blood Laboratory Results 03/31/17 05:00 03/31/17 05:00 03/30/17 03/31/17 04/01/17 05:59 05:59 05:59 Intake Total 2848 0 Output Total 300 Balance 2848 -300 PT 14.4 SEC (12.0-15.0) 03/18/17 12:02 INR 1.13 (0.83-1.16) 03/18/17 12:02 awake, alert, oriented to name, place, month, year PERRL, EOMI, no facial droop JAYRO x 4 + light touch C/D/I ICD10 Worksheet Patient Problems: Problems Problem Status Onset Anemia due to blood loss, acute Acute Chronic pain Acute Pneumonia Acute S/P lumbar spinal fusion Acute
[2017-03-31] MEDS: ACETAMINOPHEN 500 MG TAB TUBE PRN ×2 (13:03→22:59)
[2017-03-31] MEDS: ASCORBIC ACID 500 MG TAB TUBE SCH (13:04)
[2017-03-31] MEDS: CHOLECALCIFEROL VIT D3 1,000 UNITS TAB TUBE SCH (13:05)
[2017-03-31] MEDS: DULoxetine 30 MG CAP TUBE SCH (13:05)
[2017-03-31] MEDS: guaiFENesin 200 MG/10 ML UDL TUBE SCH ×3 (13:06→20:50)
[2017-03-31] MEDS: METHOCARBAMOL 750 MG TAB TUBE PRN ×2 (13:09→18:15)
[2017-03-31] MEDS: ONDANSETRON 4 MG/2 ML VIAL IVP PRN (13:12)
[2017-03-31] MEDS ORDERED: LOPERAMIDE HCL 2 MG CAP PO PRN (14:38)
--- NOTE | 2017-03-31 16:34 | HOSPPROG ---
Hospitalist Progress Note Assessment/Plan: * Severe kyphosis s/p decompression/fusion/hardware removal * Aspiration PNA -IV Invanz -watch rising WBC - CXR improving * Dysphagia s/p PEG * Acute respiratory failure -poor secretion mgmt -nebs, mucinex - improved * Metabolic encephalopathy -suspicion for narcotics/meds -offered MRI - declined -he would like to wait and see if she can improve with less drugs and more mobilization -neuro exam is non-focal - CVA less likely -improving * Troponin elevation with chest pain -Lexiscan stress test in am * Shock s/p pressors * RA -due for IV infusion tomorrow - will hold Subjective: More awake. Lots of secretions but suctioning herself. Getting into chair and ambulating Objective: Vital Signs Temp Pulse Resp BP Pulse Ox 36.6 C 92 22 H 108/85 H 100 03/31/17 15:59 03/31/17 15:59 03/31/17 15:59 03/31/17 15:59 03/31/17 15:59 Microbiology 03/25/17 22:40 Blood Culture - Final Blood 03/25/17 21:35 Blood Culture - Final Blood Laboratory Results 03/31/17 05:00 03/31/17 05:00 03/30/17 03/31/17 04/01/17 05:59 05:59 05:59 Intake Total 2848 0 210 Output Total 300 250 Balance 2848 -300 -40 PT 14.4 SEC (12.0-15.0) 03/18/17 12:02 INR 1.13 (0.83-1.16) 03/18/17 12:02 CXR viewed, my personal interpretation is - infiltrates are improving - Physical Exam Constitutional: no apparent distress, appears nourished, not in pain Cardiovascular: regular rate and rhythym, no murmur, rub, or gallop Respiratory: no respiratory distress, no rales or rhonchi, clear to auscultation Gastrointestinal: normoactive bowel sounds, soft, non-tender abdomen, no palpable masses Skin: no rashes or abrasions, no fluctuance, no induration Psychiatric: encephalopathic, flat affect, other (awakens more easily today), No interacting appropriately ICD10 Worksheet Patient Problems: Problems Problem Status Onset Anemia due to blood loss, acute Acute Chronic pain Acute Pneumonia Acute S/P lumbar spinal fusion Acute
[2017-03-31] MEDS: ERTAPENEM 1 GM in NS 100 ML IV SCH (20:43)
[2017-03-31] MEDS: GABAPENTIN 250 MG/5 ML 30 ML BOTTLE TUBE SCH (20:48)
[2017-04-01] MEDS: IPRATROPIUM/ALBUTEROL 3 ML DEYVIAL IH SCH ×5 (00:34→23:08)
[2017-04-01 05:27] LABS: ABSOLUTE IMMATURE GRANULOCYTES 0.25 10^3/uL (0.00-0.10); ADD DIFF? NO; ADD MORPH? NO; ADD SCAN? NO; ATYPICAL LYMPHOCYTE FLAG 0 (0-99); FRAGMENT RBC FLAG 0 (0-99); HEMATOCRIT 37.1 % (38.0-47.0); HEMOGLOBIN 11.6 g/dL (12.6-16.3); LEFT SHIFT FLG 20 (0-99); LIPEMIA HEMOLYSIS FLAG 80 (0-99); MEAN CELL HEMOGLOBIN 27.8 pg (27.9-34.1); MEAN CELL HEMOGLOBIN CONCENTR. 31.3 g/dL (32.4-36.7); PLATELET CLUMPS FLAG 0 (0-99); PLATELET COUNT 336 10^3/uL (150-400); RED BLOOD CELL COUNT 4.17 10^6/uL (4.18-5.33)
[2017-04-01 05:54] LABS: ANION GAP 6 mEq/L (8-16); CALCIUM 9.3 mg/dL (8.5-10.4); CARBON DIOXIDE 33 mEq/l (22-31); CHLORIDE 99 mEq/L (97-110); CREATININE 0.6 mg/dL (0.6-1.0); GLOMERULAR FILTRATION RATE > 60; GLUCOSE 144 mg/dL (70-100); POTASSIUM 4.7 mEq/L (3.5-5.2); SODIUM 138 mEq/L (134-144)
[2017-04-01] MEDS: LEVOTHYROXINE 50 MCG TAB TUBE SCH (06:51)
--- NOTE | 2017-04-01 08:16 | SOAPPROG ---
SOAP Progress Note Assessment/Plan: Assessment: s/p C3-T7 instrumentation and T3 wedge with removal of posterior cervical and upper thoracic hardware on 03/18 Sedated this AM but wakes and converses. generalized weakness 2/2 poor PO intake, no focal weakness. Neuro stable PEG in place Medicine assisting with Mgmt of pulmonary issues elevated WBC today at 26. Afebrile. Incision looks good. Plan: no collar needed at this time, encourage out of bed. I Discussed patient's status as well as elevated WBC with Dr. Lane who has worked her up extensively for source of infection and none has been found. She will contact ID today for their assistance Subjective: asleep, wakes and converses, but falls back asleep. Has not has narcotics recently. Objective: Vital Signs Temp Pulse Resp BP Pulse Ox 36.4 C 78 18 118/62 97 04/01/17 07:53 04/01/17 07:53 04/01/17 07:53 04/01/17 07:53 04/01/17 07:53 Microbiology 03/25/17 22:40 Blood Culture - Final Blood 03/25/17 21:35 Blood Culture - Final Blood Laboratory Results 04/01/17 05:11 04/01/17 05:11 03/31/17 04/01/17 04/02/17 05:59 05:59 05:59 Intake Total 0 490 Output Total 300 500 Balance -300 -10 PT 14.4 SEC (12.0-15.0) 03/18/17 12:02 INR 1.13 (0.83-1.16) 03/18/17 12:02 Neuro: MORRELL, follows commands Incision CDI ICD10 Worksheet Patient Problems: Problems Problem Status Onset Anemia due to blood loss, acute Acute Chronic pain Acute Pneumonia Acute S/P lumbar spinal fusion Acute
[2017-04-01] MEDS: ASCORBIC ACID 500 MG TAB TUBE SCH (10:11)
[2017-04-01] MEDS: guaiFENesin 200 MG/10 ML UDL TUBE SCH ×3 (10:12→19:54)
[2017-04-01] MEDS: ACETAMINOPHEN 500 MG TAB TUBE PRN (10:12)
[2017-04-01] MEDS: CHOLECALCIFEROL VIT D3 1,000 UNITS TAB TUBE SCH (10:12)
[2017-04-01] MEDS: DULoxetine 30 MG CAP TUBE SCH ×2 (10:12→10:17)
[2017-04-01 14:28] LABS: BASE EXCESS 6.1 mEq/L (-2.5-2.5); BICARBONATE 29 mEq/L (22-26); MEASURED OXYGEN SATURATION 98 % (92-95); PCO2 37 mmHg (34-38); PO2 111 mmHg (65-75); TCO2 30 mEq/L (23-27)
--- NOTE | 2017-04-01 15:55 | HOSPPROG ---
Hospitalist Progress Note Assessment/Plan: * Severe kyphosis s/p decompression/fusion/hardware removal * Aspiration PNA -IV Invanz -watch rising WBC - CXR improving * Dysphagia s/p PEG * Acute respiratory failure -poor secretion mgmt -nebs, mucinex - improved * Metabolic encephalopathy - severe - not improving -with rising WBC - concern for occult infection -d/w Dr. Lovelace - ID will consult -check MRI brain and C-spine * Troponin elevation with chest pain -Lexiscan stress test when clinical status improved * Shock s/p pressors * RA -chronically immunosuppressed - on immunomodulator monthly -due for IV infusion - will hold Subjective: mental status very altered. wakes up to voice briefly but then back to severe encephalopathic state. denies pain Objective: Vital Signs Temp Pulse Resp BP Pulse Ox 37.0 C 78 20 110/61 99 04/01/17 11:38 04/01/17 11:38 04/01/17 11:38 04/01/17 11:38 04/01/17 11:38 Laboratory Results 04/01/17 05:11 04/01/17 05:11 03/31/17 04/01/17 04/02/17 05:59 05:59 05:59 Intake Total 0 490 Output Total 300 500 Balance -300 -10 PT 14.4 SEC (12.0-15.0) 03/18/17 12:02 INR 1.13 (0.83-1.16) 03/18/17 12:02 - Physical Exam Constitutional: no apparent distress, appears nourished, not in pain Cardiovascular: regular rate and rhythym, no murmur, rub, or gallop Respiratory: no respiratory distress, no rales or rhonchi, clear to auscultation Gastrointestinal: normoactive bowel sounds, soft, non-tender abdomen, no palpable masses ICD10 Worksheet Patient Problems: Problems Problem Status Onset Anemia due to blood loss, acute Acute Chronic pain Acute Pneumonia Acute S/P lumbar spinal fusion Acute
[2017-04-01] MEDS ORDERED: GADOBUTROL 10 ML VIAL IVP ONE (17:59)
--- NOTE | 2017-04-01 18:02 | GCON ---
[f rep st] CONSULTATION INFECTIOUS DISEASE CONSULTATION DATE OF CONSULTATION: 04/01/2017 REFERRING PHYSICIAN: Brandi Lane MD REASON FOR CONSULTATION: Encephalopathy plus leukocytosis for further evaluation. CHIEF COMPLAINT: Encephalopathy. HISTORY OF PRESENT ILLNESS: This is a 76-year-old female with a past medical history significant for rheumatoid arthritis, breast cancer, hypertension, depression, hypothyroidism, bilateral breast implants, extensive spinal hardware. She has a history of C3-C4, C4-C5, C5-C6 ACDF and posterior C3 through 7 laminectomy and C3 through T3 fusion in 2011. She was admitted on the with increasing neck pain and progressive upper thoracic kyphosis. She underwent surgery on the , which included T3 pedicle subtraction osteotomy, with extensive T2, 3, and 4 laminectomies for decompression of the spinal canal, removal and replacement of instrumentation from C3 through C7, with extension of posterior segmental fixation and posterior lateral fusion from C3 through T7. PICC line was placed on the 19 of March. Progressively through her course, she was noted to be having dysphagia and noted to be having silent aspiration. She was started on Invanz therapy on the 25 of March. Chest x-ray showed increasing bilateral infiltrates at that time. She was briefly in the intensive care unit and had required pressors. Over the past several days, around the 29 of March, she was noted to be increasingly more somnolent. Her white blood cell count has also been rising as of the from initially 11.2 to 14.6 to 19.7, and now today 26.2 with a left shift ongoing. She has not been febrile despite that. She had a urinalysis done which was unremarkable, C difficile done on the which was negative, blood cultures done both on the as well as the which were no growth to date. Chest x -ray done yesterday, which showed actually improving bilateral consolidations. She also underwent a CT of the abdomen and pelvis which showed a large gallstone , but no evidence of cholecystitis. She also has a head CT, which just showed active sinus disease, but no other abnormalities. She continues to remain on Invanz therapy, is minimally arousable to verbal command and sternal rub. She has been on Robaxin, oxycodone, Cymbalta, and gabapentin. She gets daily Cymbalta and gabapentin. Her last dose of oxycodone was on March 29. Her last dose of Robaxin was yesterday evening. Unable to get any history from the patient at this time, so history is obtained purely from the medical record review, as well as in coordination of care with other providers and nursing staff in care for her. She apparently has had some loose stools over the last couple of days, was on stool softeners, and has not received a dose recently. Infectious Disease is now consulted for further evaluation. REVIEW OF SYSTEMS: Could not be obtained as patient has not been able to answer any questions. PAST MEDICAL HISTORY: Significant for rheumatoid arthritis, depression, hypertension, hypothyroidism, breast cancer, chronic rotator cuff tear, vertigo , history of a spinal abscess. PAST SURGICAL HISTORY: Significant for left mastectomy, C3 through T3 fusion in the past, L1 through L5 fusion. SOCIAL HISTORY: Per the chart. Nonsmoker, nondrinker. FAMILY HISTORY: Unremarkable per the chart. ALLERGIES: Aspirin, butalbital, erythromycin, penicillin, Levaquin. PHYSICAL EXAMINATION: VITAL SIGNS: Temperature current 37, pulse is 78, blood pressure 110/61, saturation 99% on 3 L O2 via the nasal cannula. GENERAL: Patient is resting in bed at a 45-degree angle. HEENT: Eyes mostly closed, although she does open her eyes to some verbal commands and sternal rub. She is unable to keep her eyes open, however, and she does not answer any questions. Eyes: Pupils are pinpoint bilaterally. No conjunctival injection or petechiae noted. Oropharynx: Mucous membranes are dry. No oral candidiasis or oral ulcers noted. CARDIOVASCULAR: S1, S2. Regular rate and rhythm. Soft systolic murmur appreciated. RESPIRATORY: Limited exam anteriorly. Some mild coarse breath sounds. ABDOMEN: Soft, nondistended. She has a PEG tube in place without significant erythema. EXTREMITIES: No obvious joint effusions, no obvious lower extremity edema, and no obvious rashes. BACK: Surgical incision site from the back of the neck down to the mid back is intact. There is no obvious drainage. Mild erythema at the posterior neck crease. Mild areas of some swelling in the lower cervical/upper thoracic area. The patient does not wince on palpation. LABORATORY DATA: White blood cell count is 26.2, hemoglobin 11.6, platelets are 336, neutrophil count is 87%. Coags: INR 1.1. Sodium 138, potassium 4.7, chloride 99, bicarb is 33, BUN is 19, creatinine 0.6. LFTs done a couple of days ago were within the normal range. Urinalysis on the unremarkable, negative nitrites, negative leuk esterase. C difficile on the negative. Blood cultures on the and the 30 of March, no growth to date. Sputum done on the 26 of March with 1+ polys, 2+ gram-negative rods, 1+ yeast, rare GPCs in pairs, but only 3+ Liat albicans throughout. Imaging results have all been reviewed by me. Recent chest x-ray with improved bilateral consolidations. Head CT, abdominal CT, all stated above. ASSESSMENT: 1. Leukocytosis. 2. Encephalopathy. 3. Aspiration pneumonia. 4. Sinus disease. 5. Left upper extremity swelling, rule out deep venous thrombosis. PLAN: Etiology of leukocytosis is uncertain. Differential diagnosis may include, but is not limited to, possible DVT involving the left upper extremity where the PICC line is in place, a thyroid abnormality, epidural collection involving her cervical spine , possible seizures given medication interactions that can increase [employer] side effects, possible C difficile, etc. We will start workup with a stat ABG, left upper extremity ultrasound to rule out a DVT, TSH eval, repeat C difficile analysis. Would recommend a brain MRI given encephalopathy, as well as a cervical spine MRI to evaluate further given her recent surgical history to rule out an epidural collection. Would stop all sedating medications if possible. Can continue Invanz therapy for now, although there may be some [employer] side effects related to antibiotics as well. If above, unrevealing, she may benefit with neurology consult to evaluate further for possible seizures. LP could be a consideration, but will hold off for now. Care coordinated with the RN as well as the hospitalist team. Thank you very much for providing the opportunity to care for your patient in consultation. /[id number]/MODL MTDD
[2017-04-01] MEDS: oxyCODONE ORAL SOLUTION 10 MG/0.5 ML UDSYR TUBE PRN (19:51)
[2017-04-01] MEDS: ERTAPENEM 1 GM in NS 100 ML IV SCH (20:23)
[2017-04-01] MEDS: GABAPENTIN 250 MG/5 ML 30 ML BOTTLE TUBE SCH (20:24)
[2017-04-01] MEDS: METHOCARBAMOL 750 MG TAB TUBE PRN (20:24)
[2017-04-01] MEDS ORDERED: VANCOMYCIN HCL/NORMAL SALINE 250 ML IV ONE (20:49)
--- NOTE | 2017-04-01 20:51 | HOSPPROG ---
Hospitalist Progress Note Assessment/Plan: MRI findings reviewed with Dr Dewitt - possible early diskitis. Will give one dose of vancomycin IV now, defer further antibiotic management to ID and primary MD. Objective: Vital Signs Temp Pulse Resp BP Pulse Ox 37.1 C 110 H 16 126/65 H 93 04/01/17 19:24 04/01/17 19:24 04/01/17 19:24 04/01/17 19:24 04/01/17 19:24 Laboratory Results 04/01/17 05:11 04/01/17 05:11 03/31/17 04/01/17 04/02/17 05:59 05:59 05:59 Intake Total 0 490 0 Output Total 300 500 Balance -300 -10 0 PT 14.4 SEC (12.0-15.0) 03/18/17 12:02 INR 1.13 (0.83-1.16) 03/18/17 12:02 ICD10 Worksheet Patient Problems: Problems Problem Status Onset S/P lumbar spinal fusion Acute Pneumonia Acute Chronic pain Acute Anemia due to blood loss, acute Acute
[2017-04-02] MEDS: ALTEPLASE 2 MG VIAL IVP PRN ×2 (01:19→02:33)
[2017-04-02] MEDS: oxyCODONE ORAL SOLUTION 10 MG/0.5 ML UDSYR TUBE PRN ×2 (01:34→08:54)
[2017-04-02] MEDS: ACETAMINOPHEN 500 MG TAB TUBE PRN ×3 (01:34→21:27)
[2017-04-02] MEDS: diphenhydrAMINE 12.5 MG/5 ML UDCUP TUBE PRN ×2 (02:36→21:47)
[2017-04-02 04:01] LABS: % IMMATURE GRANULYOCYTES 0.6 % (0.0-1.1); ABSOLUTE IMMATURE GRANULOCYTES 0.12 10^3/uL (0.00-0.10); ADD DIFF? NO; ADD MORPH? NO; ADD SCAN? NO; ATYPICAL LYMPHOCYTE FLAG 10 (0-99); FRAGMENT RBC FLAG 0 (0-99); HEMATOCRIT 31.5 % (38.0-47.0); LEFT SHIFT FLG 10 (0-99); LIPEMIA HEMOLYSIS FLAG 80 (0-99); MEAN CELL HEMOGLOBIN 28.4 pg (27.9-34.1); MEAN CELL HEMOGLOBIN CONCENTR. 31.7 g/dL (32.4-36.7); MEAN CELL VOLUME 89.5 fL (81.5-99.8); MEAN PLATELET VOLUME 9.1 fL (8.7-11.7); PLATELET CLUMPS FLAG 0 (0-99); PLATELET COUNT 280 10^3/uL (150-400); RED BLOOD CELL COUNT 3.52 10^6/uL (4.18-5.33); RED CELL DISTRIBUTION WIDTH 16.1 % (11.5-15.2)
[2017-04-02 04:25] LABS: ALANINE AMINOTRANSFERASE 25 IU/L (9-52); ALBUMIN 2.6 g/dL (3.5-5.0); ALKALINE PHOSPHATASE 126 IU/L (38-126); ANION GAP 6 mEq/L (8-16); ASPARTATE AMINOTRANSFERASE 19 IU/L (14-46); BILIRUBIN,TOTAL 0.5 mg/dL (0.1-1.4); CALCIUM 8.8 mg/dL (8.5-10.4); CARBON DIOXIDE 31 mEq/l (22-31); CHLORIDE 101 mEq/L (97-110); CREATININE 0.6 mg/dL (0.6-1.0); GLOMERULAR FILTRATION RATE > 60; GLUCOSE 128 mg/dL (70-100); POTASSIUM 4.3 mEq/L (3.5-5.2); SODIUM 138 mEq/L (134-144); TOTAL PROTEIN 5.1 g/dL (6.3-8.2)
[2017-04-02] MEDS: IPRATROPIUM/ALBUTEROL 3 ML DEYVIAL IH SCH ×3 (05:18→16:11)
[2017-04-02] MEDS: LEVOTHYROXINE 50 MCG TAB TUBE SCH (05:28)
--- NOTE | 2017-04-02 08:48 | SOAPPROG ---
SOAP Progress Note Assessment/Plan: Assessment: s/p C3-T7 instrumentation and T3 wedge with removal of posterior cervical and upper thoracic hardware on 03/18 Much more alert today. She is fully intact neurologically. no focal weakness. Neuro stable PEG in place Medicine following and ID consulted as well. 1 dose of Vancomycin given yesterday. WBC lower today at 18. Incision looks good. Plan: no collar needed at this time, encourage out of bed. Hold all sedating meds Continue to encourage activity and get her out of bed TID. MRI brain and Cspine reviewed edema/enhancement at T2/3 is likely related to post op changes, though infection cannot be ruled out. This is the level the wedge osteotomy was performed. WBC lower today. Appreciate ID and medicine assistance. 04/02/17 09:05 Subjective: Awake, alert, no overnight issues. She sat herself up to edge of bed with minimal assistance from me. Objective: Vital Signs Temp Pulse Resp BP Pulse Ox 36.4 C 91 16 122/72 H 93 04/02/17 07:17 04/02/17 07:17 04/02/17 07:17 04/02/17 07:17 04/02/17 07:17 Laboratory Results 04/02/17 03:50 04/02/17 03:50 04/01/17 04/02/17 04/03/17 05:59 05:59 05:59 Intake Total 490 1070 Output Total 500 Balance -10 1070 PT 14.4 SEC (12.0-15.0) 03/18/17 12:02 INR 1.13 (0.83-1.16) 03/18/17 12:02 Neuro: A+0X4 follows commands, sensation +LT strength equal Incision: CDI MRI Cspine: post op changes noted with enhancement/edema at T2/3 level likely attributable to the wedge osteotomy performed at this level and felt to be less likely to be infectious. MRI Brain: incidental small 2mm SDH posteriorly not causing any mass effect. This is not contributing to patient's mental status changes. ICD10 Worksheet Patient Problems: Problems Problem Status Onset Anemia due to blood loss, acute Acute Chronic pain Acute Pneumonia Acute S/P lumbar spinal fusion Acute
[2017-04-02] MEDS: guaiFENesin 200 MG/10 ML UDL TUBE SCH ×3 (08:54→21:23)
[2017-04-02] MEDS: CHOLECALCIFEROL VIT D3 1,000 UNITS TAB TUBE SCH (08:55)
[2017-04-02] MEDS: ASCORBIC ACID 500 MG TAB TUBE SCH (08:55)
[2017-04-02] MEDS: DULoxetine 30 MG CAP TUBE SCH (10:22)
[2017-04-02] MEDS: METHOCARBAMOL 750 MG TAB TUBE PRN ×2 (12:10→21:27)
--- NOTE | 2017-04-02 15:44 | HOSPPROG ---
Hospitalist Progress Note Assessment/Plan: * Severe kyphosis s/p decompression/fusion/hardware removal * Aspiration PNA -IV Invanz - day #8 - DC soon * Dysphagia s/p PEG * Acute respiratory failure -poor secretion mgmt -nebs, mucinex - improved * Metabolic encephalopathy - severe - finally improving * Spine inflammation by MRI - possible diskitis -per neurosurgery these change c/w surgery performed -hold off on further IV Vanco * Troponin elevation with chest pain -Lexiscan stress test in am * Shock s/p pressors * RA -chronically immunosuppressed - on immunomodulator monthly -due for IV infusion - will hold * TSH elevation - increase synthroid Subjective: Finally waking up today, c/o neck pain Objective: Vital Signs Temp Pulse Resp BP Pulse Ox 35.9 C L 80 16 112/59 L 96 04/02/17 15:39 04/02/17 15:39 04/02/17 15:39 04/02/17 15:39 04/02/17 15:39 Laboratory Results 04/02/17 03:50 04/02/17 03:50 04/01/17 04/02/17 04/03/17 05:59 05:59 05:59 Intake Total 490 1070 457 Output Total 500 0 Balance -10 1070 457 PT 14.4 SEC (12.0-15.0) 03/18/17 12:02 INR 1.13 (0.83-1.16) 03/18/17 12:02 MRI Cspine - T2/T3 edema, possible diskitis - Physical Exam Constitutional: no apparent distress, appears nourished, not in pain Cardiovascular: regular rate and rhythym, no murmur, rub, or gallop Respiratory: no respiratory distress, no rales or rhonchi, clear to auscultation Gastrointestinal: normoactive bowel sounds, soft, non-tender abdomen, no palpable masses Skin: no rashes or abrasions, no fluctuance, no induration Neurologic: AAOx3 Psychiatric: interacting appropriately, poor memory, other (eyes are open for first time in days, looks bright and awake), No encephalopathic, No agitated ICD10 Worksheet Patient Problems: Problems Problem Status Onset Anemia due to blood loss, acute Acute Chronic pain Acute Pneumonia Acute S/P lumbar spinal fusion Acute
--- NOTE | 2017-04-02 17:16 | PCMIDPN ---
Assessment/Plan: Assessment: Encephalopathy and leukocytosis. Patient underwent a redo of cervical spine fusion secondary to significant kyphosis. The last 2 days she had some significant encephalopathy but today is quite conversant and lucid. Her leukocytosis is down somewhat although this is unclear if this represents infection or postoperative leukemoid response. Her MRI of her brain showed no issue. The MRI of her cervical spine showed some enhancement in T2-T3. This probably represents the osteotomy area during the procedure. No clear evidence of infection at the operative site at this point. She continues on ertapenem empiric therapy. Will continue this for another 1-2 days. If she continues to maintain mentation and resolved leukocytosis would remove at that point. Plan: 1. Continue ertapenem for now. 2. Follow white blood cell count. 3. Follow mental status. Subjective: Patient is resting in her hospital bed. She is alert and cogent. Asks appropriate questions and answers questions correctly. Denies any new complaint. Objective: Ertapenem # 8 Vancomycin status post single dose yesterday. Vital Signs Temp Pulse Resp BP Pulse Ox 35.9 C L 82 18 112/59 L 99 04/02/17 15:39 04/02/17 16:12 04/02/17 16:12 04/02/17 15:39 04/02/17 16:12 Laboratory Results 04/02/17 03:50 04/02/17 03:50 04/01/17 04/02/17 04/03/17 05:59 05:59 05:59 Intake Total 490 1070 717 Output Total 500 0 Balance -10 1070 717 C-Reactive Protein 37.1 mg/L (<10.0) H 04/01/17 05:00 - Physical Exam General Appearance: WD/WN, alert, no apparent distress, thin, non-toxic Respiratory: lungs clear, normal breath sounds, No respiratory distress Cardiac/Chest: regular rate, rhythm, No tachycardia Skin: normal color, warm/dry, No rash Neuro/Psych: alert, normal mood/affect, oriented x 3 ICD10 Worksheet Patient Problems: Problems Problem Status Onset Anemia due to blood loss, acute Acute Chronic pain Acute Pneumonia Acute S/P lumbar spinal fusion Acute
[2017-04-02] MEDS: ERTAPENEM 1 GM in NS 100 ML IV SCH (21:22)
[2017-04-02] MEDS: GABAPENTIN 250 MG/5 ML 30 ML BOTTLE TUBE SCH (21:23)
[2017-04-03] MEDS: IPRATROPIUM/ALBUTEROL 3 ML DEYVIAL IH SCH ×4 (00:34→17:30)
[2017-04-03 04:52] LABS: % IMMATURE GRANULYOCYTES 0.6 % (0.0-1.1); ABSOLUTE IMMATURE GRANULOCYTES 0.08 10^3/uL (0.00-0.10); ADD DIFF? NO; ADD MORPH? NO; ADD SCAN? NO; ATYPICAL LYMPHOCYTE FLAG 10 (0-99); FRAGMENT RBC FLAG 0 (0-99); HEMOGLOBIN 9.4 g/dL (12.6-16.3); LEFT SHIFT FLG 10 (0-99); LIPEMIA HEMOLYSIS FLAG 80 (0-99); MEAN CELL HEMOGLOBIN 28.1 pg (27.9-34.1); MEAN CELL HEMOGLOBIN CONCENTR. 31.3 g/dL (32.4-36.7); MEAN CELL VOLUME 89.8 fL (81.5-99.8); MEAN PLATELET VOLUME 9.3 fL (8.7-11.7); PLATELET CLUMPS FLAG 10 (0-99); PLATELET COUNT 295 10^3/uL (150-400); RED BLOOD CELL COUNT 3.34 10^6/uL (4.18-5.33); RED CELL DISTRIBUTION WIDTH 15.9 % (11.5-15.2)
[2017-04-03 05:13] LABS: ANION GAP 6 mEq/L (8-16); CALCIUM 8.9 mg/dL (8.5-10.4); CARBON DIOXIDE 31 mEq/l (22-31); CHLORIDE 100 mEq/L (97-110); CREATININE 0.5 mg/dL (0.6-1.0); GLOMERULAR FILTRATION RATE > 60; GLUCOSE 104 mg/dL (70-100); POTASSIUM 4.4 mEq/L (3.5-5.2); SODIUM 137 mEq/L (134-144)
[2017-04-03] MEDS: LEVOTHYROXINE 75 MCG TAB TUBE SCH (05:19)
[2017-04-03] MEDS: ASCORBIC ACID 500 MG TAB TUBE SCH (07:33)
[2017-04-03] MEDS: CHOLECALCIFEROL VIT D3 1,000 UNITS TAB TUBE SCH (07:33)
[2017-04-03] MEDS: DULoxetine 30 MG CAP TUBE SCH (07:33)
[2017-04-03] MEDS ORDERED: REGADENOSON 0.4 MG/5 ML SYR IVP ONE (09:28)
--- NOTE | 2017-04-03 10:34 | CPR ---
[f rep st] NONINVASIVE CARDIAC PROCEDURE REPORT INDICATION FOR PROCEDURE: Chest pressure and a mild elevation of troponin on admission. PRE: After obtaining informed consent and ensuring patient's n.p.o. status of caffeine for greater than 12 hours, patient was placed on electrocardiogram. Initial EKG shows sinus rhythm, leftward ax is deviation, noted Q-waves in lead III and aVF, nonspecific T-wave abnormalities. Patient denies o f any chest pain, shortness of breath, or symptoms suggesting of ischemia. Initial blood pressure 1 12/70, saturation 97% on 3 L nasal cannula. INJECTION: Patient was given Lexiscan slow IV push, followed by nuclear isotope, and patient report ed within 1 minute of feeling hot and flushed after injection, mild shortness of breath, but denied of any chest pressure or pain. Heart rate increasing up to 118 beats per minute, sinus rhythm, no s ignificant EKG changes except for tachycardia. Within 4 minutes of recovery, patient reported sympt oms subsided, heart rate decreased back to 108 beats per minute, blood pressure remained stable, sat uration 92%, patient reporting symptoms subsided. Noted at within 3 minutes of injection, patient s howing some more T-wave inversion in V5 and V6, which improved when back to baseline. IMPRESSION: A 76-year-old female with reported mild episode of chest pressure and elevated troponin on admission. Lexiscan MPI study to evaluate for possible ischemia. Patient noted to have inverte d T-waves post injection in lateral leads with nonspecific T-waves in inferior leads, which returned to baseline after injection. Patient reporting no chest pressure, did have shortness of breath, wi th initial injection, which improved over 5 minutes, vital signs are stable. Patient currently repo rting no symptoms at this time. Blood pressure and heart rate within normal limits. The patient wi ll finish poststress imaging in Nuclear Medicine at this time. /[id number]/MODL
[2017-04-03] MEDS: guaiFENesin 200 MG/10 ML UDL TUBE SCH ×3 (10:47→21:39)
--- NOTE | 2017-04-03 11:33 | NEUSURGPN ---
Date of Surgery: 03/18/17 Post Op Day: 16 Assessment/Plan: Assessment/Plan: Assessment: doing well s/p C3-T7 instrumentation and T3 wedge with removal of posterior cervical and upper thoracic hardware Encourage PT/OT Mentation improved Will follow medicine recs for leukocytosis Feeding recs per GI Will remove upper cervical sangeeta today Subjective: patient resting comfortable, stating she is "fine" Objective: A+0X4 follows commands, sensation +LT strength equal Incision: CDI Neuro Check Frequency: per routine Urinary Catheter in Place: No Catheter Insertion Date: 03/18/17 Neurosurgery Physical Exam - Vitals, I&O, Labs I and O 04/02/17 04/03/17 04/04/17 05:59 05:59 05:59 Intake Total 1070 757 720 Output Total 200 Balance 1070 557 720 Intake: Oral (ml) 0 0 IV Infused (ml) 350 Ertapenem 1 gm In Ns 100 100 ml @ 200 mls/hr IV DAILY@ 2100 KENDELL Rx#:[id number] Vancomycin HCl/Normal 250 Saline 250 ml @ 250 mls/ hr IV ONCE ONE Rx#: [id number] Tube Feeding (ml) 480 487 480 Tube Flush (ml) 240 270 240 Output: Urine (ml) 200 Bedpan 200 PEG Tube Output (ml) 0 PEG 0 Other: Intake Quantity NPO NPO Sufficient Number of Voids Bedpan 1 Incontinence 1 1 Number of Stools Bedside Commode 1 Incontinence 1 1 1 Vital Signs Temp Pulse Resp BP Pulse Ox 36.7 C 80 12 106/50 L 92 04/03/17 08:01 04/03/17 11:09 04/03/17 11:09 04/03/17 08:01 04/03/17 11:09 Laboratory Results 04/03/17 04:40 04/03/17 04:40 ICD10 Worksheet Patient Problems: Problems Problem Status Onset Anemia due to blood loss, acute Acute Chronic pain Acute Pneumonia Acute S/P lumbar spinal fusion Acute
[2017-04-03] MEDS: METHOCARBAMOL 750 MG TAB TUBE PRN (14:46)
--- NOTE | 2017-04-03 15:08 | PCMIDPN ---
Assessment/Plan: Leukocytosis and encephalopathy postop cervical thoracic surgery- unclear etiology. Leukocytosis may be leukemoid reaction. Personally reviewed MRI with Radiology which demonstrated significant postsurgical changes. Leukocytosis is improved and AMS resolved. S/p 9 days ertapenem --dc ertapenem and monitor --if clinically worsens after discontinuation of antibiotics may have to consider aspiration of fluid collection along cervical spine, currently appears to be postsurgical seroma/hematoma Coordination of care with Neurosurgery and hospitalist service Subjective: Patient wants to go home Mild neck and back pain Objective: Vital Signs Temp Pulse Resp BP Pulse Ox 36.6 C 85 20 108/63 97 04/03/17 12:42 04/03/17 12:42 04/03/17 12:42 04/03/17 12:42 04/03/17 12:42 Laboratory Results 04/03/17 04:40 04/03/17 04:40 04/02/17 04/03/17 04/04/17 05:59 05:59 05:59 Intake Total 1070 757 720 Output Total 200 Balance 1070 557 720 C-Reactive Protein 37.1 mg/L (<10.0) H 04/01/17 05:00 - Physical Exam General Appearance: alert, no apparent distress EENT: other (edentulous) Neck: other (Mild pinkness to the right of the incision approximately where neck comes in to back) Cardiac/Chest: regular rate, rhythm, systolic murmur (Faint) Extremities: No pedal edema Pelvic Exam: No contreras Skin: warm/dry, No rash Neuro/Psych: alert, normal mood/affect, oriented x 3 - Line/s LUE PICC Lines: other (Triple-lumen), No drainage, No erythema - Time Spent With Patient Time Spent with Patient: greater than 35 minutes Time Spent with Patient: Greater than 35 minutes spent on this patients care, greater than 50% of time spent counseling, educating, and coordinating care regarding the above mentioned plan. ICD10 Worksheet Patient Problems: Problems Problem Status Onset Anemia due to blood loss, acute Acute Chronic pain Acute Pneumonia Acute S/P lumbar spinal fusion Acute
[2017-04-03] MEDS: ACETAMINOPHEN 500 MG TAB TUBE PRN (17:28)
--- NOTE | 2017-04-03 17:32 | HOSPPROG ---
Hospitalist Progress Note Assessment/Plan: * Severe kyphosis s/p decompression/fusion/hardware removal * Aspiration PNA -IV Invanz - day #9 - DC soon * Dysphagia s/p PEG * Acute respiratory failure -poor secretion mgmt -nebs, mucinex - improved * Metabolic encephalopathy - severe - finally improving -suspect due to narcotics with very slow clearance * Spine inflammation by MRI - possible diskitis -per neurosurgery these changes c/w surgery performed -per ID hold all antibiotics and monitor * Troponin elevation with chest pain -stress test negative * Shock s/p pressors * RA -chronically immunosuppressed - on immunomodulator monthly -due for IV infusion - will hold * TSH elevation - increase synthroid Subjective: Awake, doing well Objective: Vital Signs Temp Pulse Resp BP Pulse Ox 36.4 C 91 16 108/53 L 97 04/03/17 16:20 04/03/17 16:20 04/03/17 16:20 04/03/17 16:20 04/03/17 16:20 Laboratory Results 04/03/17 04:40 04/03/17 04:40 04/02/17 04/03/17 04/04/17 05:59 05:59 05:59 Intake Total 1070 757 720 Output Total 200 Balance 1070 557 720 PT 14.4 SEC (12.0-15.0) 03/18/17 12:02 INR 1.13 (0.83-1.16) 03/18/17 12:02 d/w DR. Agarwal - she will DC abx and watch Lexiscan nuc stress test - no reversible ischemia - Physical Exam Constitutional: no apparent distress, appears nourished, not in pain Cardiovascular: regular rate and rhythym, no murmur, rub, or gallop Respiratory: no respiratory distress, no rales or rhonchi, clear to auscultation Gastrointestinal: normoactive bowel sounds, soft, non-tender abdomen, no palpable masses Skin: no rashes or abrasions, no fluctuance, no induration Neurologic: AAOx3, sensation intact bilaterally Psychiatric: interacting appropriately, not anxious, not encephalopathic, thought process linear ICD10 Worksheet Patient Problems: Problems Problem Status Onset Anemia due to blood loss, acute Acute Chronic pain Acute Pneumonia Acute S/P lumbar spinal fusion Acute
[2017-04-03] MEDS: GABAPENTIN 250 MG/5 ML 30 ML BOTTLE TUBE SCH (21:39)
[2017-04-03] MEDS: diphenhydrAMINE 12.5 MG/5 ML UDCUP TUBE PRN (21:49)
[2017-04-03] MEDS: ONDANSETRON 4 MG/2 ML VIAL IVP PRN (22:40)
[2017-04-04 04:35] LABS: % IMMATURE GRANULYOCYTES 0.6 % (0.0-1.1); ABSOLUTE IMMATURE GRANULOCYTES 0.08 10^3/uL (0.00-0.10); ADD DIFF? NO; ADD MORPH? NO; ADD SCAN? NO; ATYPICAL LYMPHOCYTE FLAG 10 (0-99); FRAGMENT RBC FLAG 0 (0-99); HEMATOCRIT 32.4 % (38.0-47.0); HEMOGLOBIN 10.2 g/dL (12.6-16.3); LEFT SHIFT FLG 0 (0-99); LIPEMIA HEMOLYSIS FLAG 80 (0-99); MEAN CELL HEMOGLOBIN 28.5 pg (27.9-34.1); MEAN CELL HEMOGLOBIN CONCENTR. 31.5 g/dL (32.4-36.7); MEAN CELL VOLUME 90.5 fL (81.5-99.8); MEAN PLATELET VOLUME 9.3 fL (8.7-11.7); PLATELET CLUMPS FLAG 0 (0-99); PLATELET COUNT 365 10^3/uL (150-400); RED BLOOD CELL COUNT 3.58 10^6/uL (4.18-5.33); RED CELL DISTRIBUTION WIDTH 15.9 % (11.5-15.2)
[2017-04-04 04:59] LABS: ANION GAP 8 mEq/L (8-16); CALCIUM 9.4 mg/dL (8.5-10.4); CARBON DIOXIDE 30 mEq/l (22-31); CHLORIDE 102 mEq/L (97-110); CREATININE 0.5 mg/dL (0.6-1.0); GLOMERULAR FILTRATION RATE > 60; GLUCOSE 136 mg/dL (70-100); POTASSIUM 4.3 mEq/L (3.5-5.2); SODIUM 140 mEq/L (134-144)
[2017-04-04] MEDS: LEVOTHYROXINE 75 MCG TAB TUBE SCH (05:16)
[2017-04-04] MEDS: IPRATROPIUM/ALBUTEROL 3 ML DEYVIAL IH SCH ×4 (06:36→15:54)
[2017-04-04] MEDS: ACETAMINOPHEN 500 MG TAB TUBE PRN (08:58)
[2017-04-04] MEDS: CHOLECALCIFEROL VIT D3 1,000 UNITS TAB TUBE SCH (08:58)
[2017-04-04] MEDS: guaiFENesin 200 MG/10 ML UDL TUBE SCH ×3 (08:58→20:50)
[2017-04-04] MEDS: ASCORBIC ACID 500 MG TAB TUBE SCH (08:58)
[2017-04-04] MEDS: METHOCARBAMOL 750 MG TAB TUBE PRN ×2 (08:58→13:53)
[2017-04-04] MEDS: DULoxetine 30 MG CAP TUBE SCH (08:59)
--- NOTE | 2017-04-04 09:57 | NEUSURGPN ---
Date of Surgery: 03/18/17 Post Op Day: 17 Assessment/Plan: Assessment/Plan: Assessment: doing well s/p C3-T7 instrumentation and T3 wedge with removal of posterior cervical and upper thoracic hardware Encourage PT/OT Mentation improved Will follow medicine recs for leukocytosis, stopped antibiotics per ID, will monitor WBC Feeding recs per GI Rehab consult placed Subjective: Patient has posterior neck pain Objective: A+0X4 follows commands, sensation +LT strength equal Incision: CDI Neuro Check Frequency: per routine Urinary Catheter in Place: No Catheter Insertion Date: 03/18/17 - Physician Discussed Patient with : Catarino Patient Seen by : Catarino Neurosurgery Physical Exam - Vitals, I&O, Labs I and O 04/03/17 04/04/17 04/05/17 05:59 05:59 05:59 Intake Total 757 1765 Output Total 200 Balance 557 1765 Intake: Oral (ml) 0 Tube Feeding (ml) 487 1205 Tube Flush (ml) 270 560 Output: Urine (ml) 200 Bedpan 200 PEG Tube Output (ml) 0 PEG 0 Other: Intake Quantity NPO Sufficient Number of Voids Bedpan 1 Incontinence 1 1 Toilet 1 Number of Stools Bedside Commode 1 Incontinence 1 1 Toilet 1 Vital Signs Temp Pulse Resp BP Pulse Ox 36.4 C 71 16 121/65 H 99 04/04/17 08:00 04/04/17 08:00 04/04/17 08:00 04/04/17 08:00 04/04/17 08:00 Laboratory Results 04/04/17 04:30 04/04/17 04:30 ICD10 Worksheet Patient Problems: Problems Problem Status Onset Anemia due to blood loss, acute Acute Chronic pain Acute Pneumonia Acute S/P lumbar spinal fusion Acute
--- NOTE | 2017-04-04 11:01 | PCMIDPN ---
Assessment/Plan: Leukocytosis and encephalopathy postop cervical thoracic surgery- unclear etiology. Leukocytosis may be leukemoid reaction. Personally reviewed MRI with Radiology which demonstrated significant postsurgical changes. Leukocytosis continues to improve and AMS resolved. S/p 9 days ertapenem, last day 04/03/2017 -- continue to monitor off antibiotics --if clinically worsens after discontinuation of antibiotics may have to consider aspiration of fluid collection along cervical spine, currently appears to be postsurgical seroma/hematoma -- call ID for additional questions Subjective: patient is feeling well today without specific complaints. Looking for to going to rehab Objective: Vital Signs Temp Pulse Resp BP Pulse Ox 36.4 C 88 12 121/65 H 100 04/04/17 08:00 04/04/17 10:30 04/04/17 10:30 04/04/17 08:00 04/04/17 10:30 Laboratory Results 04/04/17 04:30 04/04/17 04:30 04/03/17 04/04/17 04/05/17 05:59 05:59 05:59 Intake Total 757 1765 Output Total 200 Balance 557 1765 C-Reactive Protein 37.1 mg/L (<10.0) H 04/01/17 05:00 - Physical Exam General Appearance: alert, no apparent distress EENT: other ( dentures) Respiratory: lungs clear, No accessory muscle use Neck: other ( cervical portion of incision with slight pinkness on the right but no drainage and healing well) Cardiac/Chest: regular rate, rhythm Extremities: No pedal edema Abdomen: non-tender, soft, other ( peg tube) Skin: No rash Neuro/Psych: alert, normal mood/affect, oriented x 3 ICD10 Worksheet Patient Problems: Problems Problem Status Onset Anemia due to blood loss, acute Acute Chronic pain Acute Pneumonia Acute S/P lumbar spinal fusion Acute
--- NOTE | 2017-04-04 14:35 | HOSPPROG ---
Hospitalist Progress Note Assessment/Plan: # severe kyphosis s/p decompression/fusion and hardware removal # aspiration pna - s/p invanz x 9 days, last dose 04/02 pm # c-spine fluid collection, possible diskitis - per ID and NSG, likely expected appearance post-op - monitor for recurrence of SIRS after holding abx # leukocytosis, possible reactive - recheck tomorrow # acute resp failure - overall improving; cont nebs, mucinex # dysphagia s/p PEG # encephalopathy - severe, improving; multifactorial - narcotics, acute illness # troponin elevation/chest pain - echo ok, alice negative # shock s/p pressors # RA - on immunomodulator monthly -due for IV infusion - will hold # TSH elevation - increase synthroid Subjective: wants to leave the hospital; no fevers; tube feeds going ok Objective: Vital Signs Temp Pulse Resp BP Pulse Ox 36.4 C 88 12 121/65 H 100 04/04/17 08:00 04/04/17 10:30 04/04/17 10:30 04/04/17 08:00 04/04/17 10:30 Microbiology 03/30/17 10:50 Blood Culture - Final Blood 03/30/17 11:00 Blood Culture - Final Blood Laboratory Results 04/04/17 04:30 04/04/17 04:30 04/03/17 04/04/17 04/05/17 05:59 05:59 05:59 Intake Total 757 1765 Output Total 200 500 Balance 557 1765 -500 PT 14.4 SEC (12.0-15.0) 03/18/17 12:02 INR 1.13 (0.83-1.16) 03/18/17 12:02 chart reviewed imaging, nuc stress reviewed - Physical Exam Constitutional: no apparent distress, appears nourished Cardiovascular: regular rate and rhythym, no murmur, rub, or gallop, systolic murmur Respiratory: no respiratory distress, no rales or rhonchi Gastrointestinal: normoactive bowel sounds, soft, non-tender abdomen, other ( PEG in place) ICD10 Worksheet Patient Problems: Problems Problem Status Onset S/P lumbar spinal fusion Acute Pneumonia Acute Chronic pain Acute Anemia due to blood loss, acute Acute
[2017-04-04] MEDS: oxyCODONE IR 5 MG TAB PO PRN ×2 (16:34→22:10)
[2017-04-04] MEDS: GABAPENTIN 250 MG/5 ML 30 ML BOTTLE TUBE SCH (20:50)
[2017-04-04] MEDS: diphenhydrAMINE 12.5 MG/5 ML UDCUP TUBE PRN (23:45)
[2017-04-05] MEDS: diphenhydrAMINE 12.5 MG/5 ML UDCUP TUBE PRN (01:02)
[2017-04-05] MEDS: IPRATROPIUM/ALBUTEROL 3 ML DEYVIAL IH SCH ×5 (03:45→23:52)
[2017-04-05] MEDS: oxyCODONE IR 5 MG TAB PO PRN ×2 (05:00→10:10)
[2017-04-05] MEDS: LEVOTHYROXINE 75 MCG TAB TUBE SCH (05:00)
[2017-04-05 05:04] LABS: % IMMATURE GRANULYOCYTES 0.3 % (0.0-1.1); ABSOLUTE IMMATURE GRANULOCYTES 0.04 10^3/uL (0.00-0.10); ADD DIFF? NO; ADD MORPH? NO; ADD SCAN? NO; ATYPICAL LYMPHOCYTE FLAG 10 (0-99); FRAGMENT RBC FLAG 0 (0-99); HEMATOCRIT 31.4 % (38.0-47.0); HEMOGLOBIN 9.8 g/dL (12.6-16.3); LEFT SHIFT FLG 0 (0-99); LIPEMIA HEMOLYSIS FLAG 80 (0-99); MEAN CELL HEMOGLOBIN 28.4 pg (27.9-34.1); MEAN CELL HEMOGLOBIN CONCENTR. 31.2 g/dL (32.4-36.7); MEAN PLATELET VOLUME 9.2 fL (8.7-11.7); PLATELET CLUMPS FLAG 30 (0-99); PLATELET COUNT 336 10^3/uL (150-400); RED BLOOD CELL COUNT 3.45 10^6/uL (4.18-5.33); RED CELL DISTRIBUTION WIDTH 15.6 % (11.5-15.2)
[2017-04-05 05:58] LABS: % IMMATURE GRANULYOCYTES 0.5 % (0.0-1.1); ABSOLUTE IMMATURE GRANULOCYTES 0.05 10^3/uL (0.00-0.10); ADD DIFF? NO; ADD MORPH? NO; ADD SCAN? NO; ATYPICAL LYMPHOCYTE FLAG 20 (0-99); FRAGMENT RBC FLAG 0 (0-99); HEMATOCRIT 29.5 % (38.0-47.0); HEMOGLOBIN 9.5 g/dL (12.6-16.3); LEFT SHIFT FLG 0 (0-99); LIPEMIA HEMOLYSIS FLAG 80 (0-99); MEAN CELL HEMOGLOBIN 28.6 pg (27.9-34.1); MEAN CELL HEMOGLOBIN CONCENTR. 32.2 g/dL (32.4-36.7); MEAN CELL VOLUME 88.9 fL (81.5-99.8); MEAN PLATELET VOLUME 9.5 fL (8.7-11.7); PLATELET CLUMPS FLAG 0 (0-99); PLATELET COUNT 410 10^3/uL (150-400); RED BLOOD CELL COUNT 3.32 10^6/uL (4.18-5.33); RED CELL DISTRIBUTION WIDTH 15.5 % (11.5-15.2)
[2017-04-05] MEDS: METHOCARBAMOL 750 MG TAB TUBE PRN ×2 (09:29→23:13)
[2017-04-05] MEDS: guaiFENesin 200 MG/10 ML UDL TUBE SCH ×3 (09:29→20:47)
[2017-04-05] MEDS: ACETAMINOPHEN 500 MG TAB TUBE PRN (09:29)
[2017-04-05] MEDS: DULoxetine 30 MG CAP TUBE SCH (09:29)
[2017-04-05] MEDS: CHOLECALCIFEROL VIT D3 1,000 UNITS TAB TUBE SCH (09:30)
[2017-04-05] MEDS: ASCORBIC ACID 500 MG TAB TUBE SCH (09:30)
--- NOTE | 2017-04-05 09:39 | NEUSURGPN ---
Assessment/Plan: Assessment: severe dysphagia s/p C3-T7 instrumentation and T3 wedge with removal of posterior cervical and upper thoracic hardware Neuro stable PEG feeds Medicine assisting with Mgmt of pulmonary/medical issues Discussed with Dr. Barber Rehab/SNF placement once cleared from multiple medical issues Subjective: posterior neck pain, oxycodone helping Objective: NAD A&Ox3 MAEx4. Incision c/d/i Catheter Insertion Date: 03/18/17 - Physician Discussed Patient with DrRadha: Jeanine Neurosurgery Physical Exam - Vitals, I&O, Labs I and O 04/04/17 04/05/17 04/06/17 05:59 05:59 05:59 Intake Total 7709 955 2784 Output Total 900 Balance 1765 -300 1320 Intake: Tube Feeding (ml) 1205 360 440 Tube Flush (ml) 560 240 880 Output: Urine (ml) 900 Bedside Commode 400 Catheter 500 Other: Intake Quantity Yes Sufficient Number of Voids Bedside Commode 1 Catheter 1 Incontinence 1 1 Toilet 1 Number of Stools Incontinence 1 1 Toilet 1 1 Microbiology 03/30/17 10:50 Blood Culture - Final Blood 03/30/17 11:00 Blood Culture - Final Blood Vital Signs Temp Pulse Resp BP Pulse Ox 36.7 C 88 16 116/63 96 04/05/17 07:22 04/05/17 07:22 04/05/17 07:22 04/05/17 07:22 04/05/17 07:22 Laboratory Results 04/05/17 05:40 04/04/17 04:30 ICD10 Worksheet Patient Problems: Problems Problem Status Onset Anemia due to blood loss, acute Acute Chronic pain Acute Pneumonia Acute S/P lumbar spinal fusion Acute
--- NOTE | 2017-04-05 14:00 | HOSPPROG ---
Hospitalist Progress Note Assessment/Plan: # severe kyphosis s/p decompression/fusion and hardware removal - slight increase in oxycodone today # aspiration pna - s/p invanz x 9 days, last dose 04/02 pm # c-spine fluid collection, possible diskitis - per ID and NSG, likely expected appearance post-op - monitor for recurrence of SIRS after holding abx # leukocytosis, improved # acute resp failure - overall improving; cont nebs, mucinex # dysphagia s/p PEG # encephalopathy - severe, improving; multifactorial - narcotics, acute illness # troponin elevation/chest pain - echo ok, alice negative # shock s/p pressors # RA - on immunomodulator monthly -due for IV infusion - will hold # TSH elevation - increase synthroid # dispo - expect her to medically clear tomorrow Subjective: reports uncontrolled pain Objective: Vital Signs Temp Pulse Resp BP Pulse Ox 36.7 C 88 15 116/63 95 04/05/17 07:22 04/05/17 12:01 04/05/17 12:01 04/05/17 07:22 04/05/17 12:01 Microbiology 03/30/17 10:50 Blood Culture - Final Blood 03/30/17 11:00 Blood Culture - Final Blood Laboratory Results 04/05/17 05:40 04/04/17 04:30 04/04/17 04/05/17 04/06/17 05:59 05:59 05:59 Intake Total 7346 800 5773 Output Total 900 Balance 1765 -300 1320 PT 14.4 SEC (12.0-15.0) 03/18/17 12:02 INR 1.13 (0.83-1.16) 03/18/17 12:02 - Physical Exam Constitutional: no apparent distress, appears nourished Cardiovascular: regular rate and rhythym, no murmur, rub, or gallop Respiratory: no respiratory distress, no rales or rhonchi, clear to auscultation Gastrointestinal: normoactive bowel sounds, soft, non-tender abdomen, no palpable masses ICD10 Worksheet Patient Problems: Problems Problem Status Onset S/P lumbar spinal fusion Acute Pneumonia Acute Chronic pain Acute Anemia due to blood loss, acute Acute
[2017-04-05] MEDS: oxyCODONE IR 5 MG TAB TUBE PRN ×3 (15:33→23:11)
[2017-04-05] MEDS: GABAPENTIN 250 MG/5 ML 30 ML BOTTLE TUBE SCH (20:47)
[2017-04-06] MEDS: oxyCODONE IR 5 MG TAB TUBE PRN ×5 (04:17→22:01)
[2017-04-06] MEDS: IPRATROPIUM/ALBUTEROL 3 ML DEYVIAL IH SCH ×4 (05:07→23:45)
[2017-04-06] MEDS: LEVOTHYROXINE 75 MCG TAB TUBE SCH (06:19)
--- NOTE | 2017-04-06 10:00 | HOSPPROG ---
Hospitalist Progress Note Assessment/Plan: # severe kyphosis s/p decompression/fusion and hardware removal - pain better today # aspiration pna - s/p invanz x 9 days, last dose 04/02 pm # c-spine fluid collection, possible diskitis - per ID and NSG, likely expected appearance post-op - no decompensation, has been off abx for days # leukocytosis, improved # acute resp failure - overall improving; cont nebs, mucinex # dysphagia s/p PEG - repeat PERPETUAL INVENTORY CLERK eval today - anticipate that she will need to dc with PEG and address as outpatient # encephalopathy - severe, improving; multifactorial - narcotics, acute illness # troponin elevation/chest pain - echo ok, alice negative # shock s/p pressors # RA - on immunomodulator monthly -due for IV infusion - will hold for noew # TSH elevation - increase synthroid # dispo - medically cleared Subjective: pain much better today Objective: Vital Signs Temp Pulse Resp BP Pulse Ox 36.9 C 85 18 94/58 L 90 L 04/06/17 08:00 04/06/17 08:00 04/06/17 08:00 04/06/17 08:00 04/06/17 08:00 Laboratory Results 04/05/17 05:40 04/04/17 04:30 04/05/17 04/06/17 04/07/17 05:59 05:59 05:59 Intake Total 600 3360 Output Total 900 Balance -300 3360 PT 14.4 SEC (12.0-15.0) 03/18/17 12:02 INR 1.13 (0.83-1.16) 03/18/17 12:02 - Physical Exam Constitutional: no apparent distress, appears nourished Cardiovascular: regular rate and rhythym, no murmur, rub, or gallop, systolic murmur Respiratory: no respiratory distress, inspiratory crackles (L sided), No clear to auscultation, No reduced air movement, No bronchial breath sounds Gastrointestinal: normoactive bowel sounds, soft, non-tender abdomen, other (PEG ) ICD10 Worksheet Patient Problems: Problems Problem Status Onset S/P lumbar spinal fusion Acute Pneumonia Acute Chronic pain Acute Anemia due to blood loss, acute Acute
[2017-04-06] MEDS: guaiFENesin 200 MG/10 ML UDL TUBE SCH ×3 (10:32→22:01)
[2017-04-06] MEDS: ASCORBIC ACID 500 MG TAB TUBE SCH (10:32)
[2017-04-06] MEDS: DULoxetine 30 MG CAP TUBE SCH (10:32)
[2017-04-06] MEDS: CHOLECALCIFEROL VIT D3 1,000 UNITS TAB TUBE SCH (10:32)
--- NOTE | 2017-04-06 11:30 | NEUSURGPN ---
Assessment/Plan: Assessment: severe dysphagia s/p C3-T7 instrumentation and T3 wedge with removal of posterior cervical and upper thoracic hardware Neuro stable PEG feeds Medicine assisting with Mgmt of pulmonary/medical issues Patient would like to go home with C, but PT/OT is strongly recommending SNF. branch store manager to discuss option further with family today. Subjective: pain improved. tolerating tube feeds okay Objective: NAD A&Ox3 MAEx4 diffusely 5-/5 throughout. Incision c/d/i. One small area of erythema without dehiscence Catheter Insertion Date: 03/18/17 - Physician Discussed Patient with : Kayla Neurosurgery Physical Exam - Vitals, I&O, Labs I and O 04/05/17 04/06/17 04/07/17 05:59 05:59 05:59 Intake Total 600 3360 Output Total 900 Balance -300 3360 Intake: Tube Feeding (ml) 360 1360 Tube Flush (ml) 240 2000 Output: Urine (ml) 900 Bedside Commode 400 Catheter 500 Other: Intake Quantity Yes No Sufficient Number of Voids Bedside Commode 1 Catheter 1 Incontinence 1 Number of Stools Incontinence 1 Toilet 1 Vital Signs Temp Pulse Resp BP Pulse Ox 36.9 C 85 18 94/58 L 90 L 04/06/17 08:00 04/06/17 08:00 04/06/17 08:00 04/06/17 08:00 04/06/17 08:00 Laboratory Results 04/05/17 05:40 04/04/17 04:30 ICD10 Worksheet Patient Problems: Problems Problem Status Onset Anemia due to blood loss, acute Acute Chronic pain Acute Pneumonia Acute S/P lumbar spinal fusion Acute
[2017-04-06] MEDS ORDERED: LOPERAMIDE HCL 2 MG CAP TUBE PRN (13:53)
[2017-04-06] MEDS: ACETAMINOPHEN 500 MG TAB TUBE PRN (16:42)
[2017-04-06] MEDS: METHOCARBAMOL 750 MG TAB TUBE PRN ×2 (16:42→22:29)
--- NOTE | 2017-04-06 17:01 | PDIAF ---
- Diagnosis Code Status: Full Code - Medication Management Discharge Medications: Medications to Continue on Transfer Cholecalciferol Vit D3 [Vitamin D3 2000 units] 2,000 units PO DAILY 09/16/12 [ Last Taken 03/08/17] DULoxetine [Cymbalta 30 MG (*)] 60 mg PO DAILY 09/16/12 [Last Taken 03/17/17] Levothyroxine [Synthroid 50 mcg (*)] 50 mcg PO DAILY06 09/16/12 [Last Taken 09/21] Ascorbic Acid [Vitamin C 500 mg (*)] 500 mg PO DAILY 02/14/17 [Last Taken ] Gabapentin [Neurontin 300 MG (*)] 600 mg PO HS 02/14/17 [Last Taken 03/17/17] Acetaminophen [Tylenol ES 500 mg (*)] 1,000 mg TUBE Q8HRS PRN #0 tab 04/06/17 [ Last Taken Unknown] Enoxaparin [Lovenox 40 MG (*)] 40 mg SC DAILY #0 syr 04/06/17 [Last Taken Unknown] Methocarbamol [Robaxin 750 mg (*)] 750 mg TUBE QID PRN #0 tab 04/06/17 [Last Taken Unknown] oxyCODONE IR [Oxycodone Ir (*)] 5 - 7.5 mg TUBE Q4HRS PRN #0 tab 04/06/17 [Last Taken Unknown] Discharge Medications: Refer to the Discharge Home Medication list for PRN reason. - Orders Services needed: Registered Nurse, Physical Therapy, Occupational Therapy, Speech Language Pathologist Diet Texture: No Oral Liquids, Non Oral Meds Tube feeding: Jevity 1.5 at 40ml/hr continous - Follow Up Care Current Providers and Referrals: PAO ROY [Other]
[2017-04-06] MEDS: GABAPENTIN 250 MG/5 ML 30 ML BOTTLE TUBE SCH (22:16)
[2017-04-07] MEDS: diphenhydrAMINE 12.5 MG/5 ML UDCUP TUBE PRN (00:01)
[2017-04-07] MEDS: LEVOTHYROXINE 75 MCG TAB TUBE SCH (05:44)
[2017-04-07] MEDS: IPRATROPIUM/ALBUTEROL 3 ML DEYVIAL IH SCH (06:13)
[2017-04-07 07:25] VITALS: BP 123/73; PULSE 86; RESP 18; TEMP 97.8; O2SAT 90
[2017-04-07] MEDS: guaiFENesin 200 MG/10 ML UDL TUBE SCH (08:01)
[2017-04-07] MEDS: CHOLECALCIFEROL VIT D3 1,000 UNITS TAB TUBE SCH (08:01)
[2017-04-07] MEDS: DULoxetine 30 MG CAP TUBE SCH (08:03)
[2017-04-07] MEDS: ASCORBIC ACID 500 MG TAB TUBE SCH (08:03)
[2017-04-07] MEDS: oxyCODONE IR 5 MG TAB TUBE PRN ×2 (08:03→10:03)
--- NOTE | 2017-04-07 09:01 | SOAPPROG ---
SOAP Progress Note Assessment/Plan: Assessment: 76 yo F sp C3-T7 fusion with T3 wedge osteotomy Plan: neuro: stable, encephalopathy improving leukocytosis: progressive, nitin aspiration pneumonia appreciate input from IM PT/OT dc to SNF today scd/[place]/lovenox for DVT prophylaxis please call with neuro changes 03/21/17 07:26 03/31/17 08:02 04/07/17 08:54 04/07/17 09:01 Subjective: some neck pain, no arm pain, no weakness Objective: Vital Signs Temp Pulse Resp BP Pulse Ox 36.6 C 86 18 123/73 H 90 L 04/07/17 07:24 04/07/17 07:24 04/07/17 07:24 04/07/17 07:24 04/07/17 07:24 Laboratory Results 04/05/17 05:40 04/04/17 04:30 04/06/17 04/07/17 04/08/17 05:59 05:59 05:59 Intake Total 3360 1520 Output Total 250 400 Balance 3360 1270 -400 PT 14.4 SEC (12.0-15.0) 03/18/17 12:02 INR 1.13 (0.83-1.16) 03/18/17 12:02 AAOx4, +FC PERRL, EOMI, no facial droop 5/5 + light touch C/D/I ICD10 Worksheet Patient Problems: Problems Problem Status Onset Anemia due to blood loss, acute Acute Chronic pain Acute Pneumonia Acute S/P lumbar spinal fusion Acute
[2017-04-07] MEDS: METHOCARBAMOL 750 MG TAB TUBE PRN (10:03)
--- NOTE | 2017-04-07 13:18 | HOSPPROG ---
Hospitalist Progress Note Assessment/Plan: # severe kyphosis s/p decompression/fusion and hardware removal - pain better today # aspiration pna - s/p invanz x 9 days, last dose 04/02 pm # c-spine fluid collection, possible diskitis - per ID and NSG, likely expected appearance post-op - no decompensation, has been off abx for days # leukocytosis, improved # acute resp failure - overall improving; cont nebs, mucinex # dysphagia s/p PEG - repeat MANAGER CONTACT eval today - not ready for PO # encephalopathy - severe, improving; multifactorial - narcotics, acute illness # troponin elevation/chest pain - echo ok, alice negative # shock s/p pressors # RA - on immunomodulator monthly -due for IV infusion - will hold for now # TSH elevation - increase synthroid # dispo - medically cleared for discharge Subjective: no acute events; wants to work with speech Objective: Vital Signs Temp Pulse Resp BP Pulse Ox 36.6 C 86 18 123/73 H 90 L 04/07/17 07:24 04/07/17 07:24 04/07/17 07:24 04/07/17 07:24 04/07/17 07:24 Laboratory Results 04/05/17 05:40 04/04/17 04:30 04/06/17 04/07/17 04/08/17 05:59 05:59 05:59 Intake Total 3360 1520 Output Total 250 400 Balance 3360 1270 -400 PT 14.4 SEC (12.0-15.0) 03/18/17 12:02 INR 1.13 (0.83-1.16) 03/18/17 12:02 - Physical Exam Constitutional: no apparent distress, appears nourished Cardiovascular: regular rate and rhythym, no murmur, rub, or gallop Respiratory: no respiratory distress, no rales or rhonchi Gastrointestinal: normoactive bowel sounds, soft, non-tender abdomen, no palpable masses, other (PEG) ICD10 Worksheet Patient Problems: Problems Problem Status Onset Anemia due to blood loss, acute Acute Chronic pain Acute Pneumonia Acute S/P lumbar spinal fusion Acute
== END 2017-04-07 10:22 | DRG 471 ==
LOC: F3N 05:28 → F2N 16:36 → F3N 03-22 19:59
PROVIDERS: ADMIT Neurological Surgery; ATTEND Neurological Surgery
DX: M40.203 Unspecified kyphosis, cervicothoracic region (principal); R57.1 Hypovolemic shock; D62 Acute posthemorrhagic anemia; J69.0 Pneumonitis due to inhalation of food and vomit; J96.01 Acute respiratory failure with hypoxia; G93.41 Metabolic encephalopathy; R13.10 Dysphagia, unspecified; E87.6 Hypokalemia; E03.9 Hypothyroidism, unspecified; M06.9 Rheumatoid arthritis, unspecified; I10 Essential (primary) hypertension; Z98.1 Arthrodesis status; Z85.3 Personal history of malignant neoplasm of breast
CPT/HCPCS: 82947-QW; 92526-GN; 92610-GN; 92611-GN; 97110-GO; 97116-GP; 97161-GP; 97165-GO; 97530-GO; 97530-GP; 97535-GO; A9500; A9585; C1713; C1751; C1762; G8978-GP-CK; G8978-GP-CM; G8979-GP-CI; G8987-GO-CL; G8988-GO-CJ; G8996-GN-CJ; G8996-GN-CL; G8997-GN-CH; G8997-GN-CL; G8998-GN-CL; J0330; J0690; J1100; J1170; J1335; J1650; J2001; J2250; J2270; J2370; J2405; J2704; J2785; J2997; J3010; J3370; J7060; P9016; P9017; P9035; Q9967